=== PATIENT | male | born 1950 | race Caucasian/White ===

== ENCOUNTER → 2020-08-08 08:59 | Outpatient (BNVA) | payer MEDICARE, OTHER, SELFPAY | PROVIDERS: Visit Provider Urology | DX: N32.0 Bladder-neck obstruction (principal); N52.01 Erectile dysfunction due to arterial insufficiency; N43.3 Hydrocele, unspecified | CPT/HCPCS: 81002; 99212 ==

== ENCOUNTER → 2021-02-05 08:39 | Outpatient (BNVA) | payer MEDICARE, OTHER, SELFPAY | PROVIDERS: Visit Provider Urology | DX: N52.01 Erectile dysfunction due to arterial insufficiency (principal); N43.3 Hydrocele, unspecified; N40.1 Benign prostatic hyperplasia with lower urinary tract symptoms; R35.1 Nocturia | CPT/HCPCS: Q3014 ==

== ENCOUNTER 2021-07-17 15:03 | Outpatient (REF) | payer MEDICARE, OTHER, SELFPAY ==
[2021-07-17 17:09] LABS: Prostate Specific Antigen 6.31 ng/mL (<0.05-4.0)
== END 2021-07-17 15:04 | disposition home or self-care (01) ==
LOC: HO.LAB 15:03
PROVIDERS: Visit Provider Urology
DX: N40.1 Benign prostatic hyperplasia with lower urinary tract symptoms (principal); N13.8 Other obstructive and reflux uropathy; Z12.5 Encounter for screening for malignant neoplasm of prostate
CPT/HCPCS: 36415; 84153

== ENCOUNTER → 2021-08-06 11:09 | Outpatient (BNVA) | payer MEDICARE, OTHER, SELFPAY | PROVIDERS: Visit Provider Urology | DX: Z13.89 Encounter for screening for other disorder (principal) ==

== ENCOUNTER → 2021-08-22 11:02 | Outpatient (BNVA) | payer MEDICARE, OTHER, SELFPAY | PROVIDERS: Visit Provider Urology | DX: N52.01 Erectile dysfunction due to arterial insufficiency (principal); N40.0 Benign prostatic hyperplasia without lower urinary tract symptoms; I10 Essential (primary) hypertension; Z88.8 Allergy status to other drugs, medicaments and biological substances | CPT/HCPCS: 51798; 99212 ==

== ENCOUNTER → 2021-11-27 10:55 | Outpatient (BNVA) | payer MEDICARE, OTHER, SELFPAY | PROVIDERS: Visit Provider Urology | DX: R97.20 Elevated prostate specific antigen [PSA] (principal); C61 Malignant neoplasm of prostate; N40.0 Benign prostatic hyperplasia without lower urinary tract symptoms; N52.01 Erectile dysfunction due to arterial insufficiency; Z79.899 Other long term (current) drug therapy | CPT/HCPCS: 99212 ==

== ENCOUNTER 2021-12-31 07:34 | Outpatient (REF) | payer MEDICARE, OTHER, SELFPAY ==
[2021-12-31 07:59] VITALS: BMI 34.2
[2021-12-31 08:00] VITALS: BP 124/79; PULSE 62; RESP 16; TEMP 36.9; O2SAT 95
--- NOTE | 2021-12-31 08:28 | W.PM.OPN ---
Operative Note Operative Note Date of Service: 12/31/21 Narrative: Preoperative diagnosis: Elevated PSA Postoperative diagnosis: Elevated PSA Procedure: 1. transrectal ultrasound measurement of prostate 2. transrectal ultrasound-guided pudendal nerve block 3. transrectal ultrasound-guided prostate biopsy 12 core Surgeon: Dr. Jaiden De Jesus Anesthetic: Local Indications for procedure: Elevated PSA 6.3 Procedure: After informed consent was verified, the patient was brought into the procedure area and lay left-hand side down on the table. Patient identity confirmed. Perioperative antibiotics confirmed. Iodine 10cc with Gel was placed per rectum Ultrasound probe was placed per rectum The prostate was measured in 3 dimensions Total volume equals 50 gm There were - no cystic structures and - calcifications base right side noted and the prostate was homogeneous in nature A ultrasound-guided pudendal nerve block was performed using 10 cc of 1% lidocaine. 8 cc was placed at the base and 2 cc of the apex. A 12 core biopsy was performed with 6 cores each side. Two cores were taken at the apex, mid and base. Cores were spaced between lateral and medial. He tolerated the procedure well. Was able to ambulate to bathroom after 5 minutes. Printed instructions regarding antibiotic use and common side effects such as low-grade temperature and bleeding were given Pathology: 12 core prostate biopsy.
[2021-12-31 08:37] VITALS: BP 153/86; PULSE 77; RESP 16; O2SAT 96
== END 2021-12-31 07:35 | disposition home or self-care (01) ==
LOC: HO.MS 07:34
PROVIDERS: Visit Provider Urology
PROC: (CPT 55700; principal; 2021-12-31 08:00)
DX: C61 Malignant neoplasm of prostate (principal); R97.20 Elevated prostate specific antigen [PSA]
CPT/HCPCS: 55700; 76942; 88305; 88344

== ENCOUNTER → 2022-01-08 11:23 | Outpatient (BNVA) | payer MEDICARE, OTHER, SELFPAY | PROVIDERS: Visit Provider Urology | DX: C61 Malignant neoplasm of prostate (principal); C79.51 Secondary malignant neoplasm of bone; R39.15 Urgency of urination; N40.0 Benign prostatic hyperplasia without lower urinary tract symptoms; R35.1 Nocturia; N40.1 Benign prostatic hyperplasia with lower urinary tract symptoms | CPT/HCPCS: 99212 ==

== ENCOUNTER 2022-01-15 11:14 | Outpatient (REF) | payer MEDICARE, OTHER, SELFPAY ==
[2022-01-15 12:47] LABS: Blood Urea Nitrogen 21 mg/dL (9-16); Estimated Glomerular Filt Rate > 60
== END 2022-01-15 11:15 | disposition home or self-care (01) ==
LOC: HO.LAB 11:14
PROVIDERS: Visit Provider Urology
DX: C61 Malignant neoplasm of prostate (principal); R39.15 Urgency of urination
CPT/HCPCS: 36415; 82565; 84520

== ENCOUNTER → 2022-01-16 10:54 | Outpatient (REF) | payer MEDICARE, OTHER, SELFPAY ==
--- NOTE | ~2022-01-16 | NM_ITS ---
EXAMINATION: NM BONE SCAN OF THE WHOLE BODY CLINICAL INFORMATION: Prostate cancer malignant neoplasm of the prostate COMPARISON: No prior bone scan TECHNIQUE: Multiple gamma scintillation camera images of the whole body were performed 2.5 hours following the intravenous administration of 36 mCi Tc-99m MDP. FINDINGS: There is nonspecific increased activity in the right and left sternoclavicular joints and shoulder joints, and hind feet likely arthritic in nature. There is nonspecific activity in the right mid thoracic costovertebral region and right lumbosacral junction also likely arthritic. There is arthritic activity in the right and left first CMC. Plain film correlation could be made if the patient is symptomatic. There is physiologic activity in the kidneys and bladder with increased activity noted in the left upper collecting system. This could be secondary to the presence of a calyceal diverticulum. Bilateral knee prosthesis noted. NM/NM bone scan whole body IMPRESSION: Nonspecific findings. Findings likely arthritic in nature with no scintigraphic evidence for metastases.
== END ==
LOC: HO.NUCMED 10:54
PROVIDERS: Visit Provider Urology
DX: C61 Malignant neoplasm of prostate (principal); C79.51 Secondary malignant neoplasm of bone
CPT/HCPCS: 78306; A9503

== ENCOUNTER → 2022-01-21 09:12 | Outpatient (BNVA) | payer MEDICARE, OTHER, SELFPAY | PROVIDERS: Visit Provider Urology | DX: C61 Malignant neoplasm of prostate (principal) | CPT/HCPCS: 96402; J9217 ==

== ENCOUNTER 2022-01-22 08:33 | Outpatient (REF) | payer MEDICARE, OTHER, SELFPAY ==
--- NOTE | ~2022-01-22 | CT_ITS ---
EXAMINATION: CT ABDOMEN AND PELVIS WITHOUT AND WITH CONTRAST CLINICAL INFORMATION: Prostate cancer COMPARISON: None TECHNIQUE: Multidetector volumetric imaging was performed of the abdomen and pelvis before and after the IV administration of 85 mL of Omnipaque 300 intravenous contrast. Sagittal and coronal reformatted images were obtained on the technologist's workstation. This CT examination was performed using dose optimization techniques as appropriate, variously including the following: *Automated exposure control *Adjustment of mA and/or kV according to patient size (this includes techniques or standardized protocols for targeted exams where dose is matched to indication/reason for exam; i.e. extremities or head) *Use of iterative reconstruction technique DLP: 1733 mGy-cm FINDINGS: LUNG BASES: There are several small pulmonary nodules, largest a 4 mm peripheral or subpleural right lower lobe nodule axial image 13 series 11. There is heterogeneous abnormal soft tissue in the right posterior mediastinum near the descending thoracic aorta and distal thoracic esophagus. Appears partially fatty and partially cystic or fluid containing. It is uncertain whether this represents a fluid collection, complex soft tissue mass or is related to white diaphragmatic hiatus and radiation fat. There are pacemaker lead partially visualized in the heart. LIVER, GALLBLADDER, AND BILIARY TREE: The liver is normal in size, shape, and attenuation. No focal hepatic lesion or biliary ductal dilatation is present. The gallbladder is unremarkable with no evidence of radiopaque gallstones, gallbladder wall thickening, or obvious pericholecystic inflammatory changes. PANCREAS: Unremarkable SPLEEN: Unremarkable ADRENAL GLANDS: Unremarkable KIDNEYS AND URETERS: There is a 7.5 x 9.2 cm indeterminate low-attenuation lesion exophytic to the upper pole of the right kidney. Hounsfield units following IV contrast measure 40 which is indeterminate. It is uncertain whether this represents a complex cyst or could represent a solid lesion. There is left upper pole cortical thinning or scarring. There is mild left upper pole calyceal dilatation. There are multiple bilateral renal simple appearing cysts, largest measuring 3 cm. There is a 2 mm nonobstructing stone in the lower pole of the right kidney. BLADDER: Unremarkable GASTROINTESTINAL TRACT: The small and large bowel are unremarkable. The appendix is is not seen. The stomach is unremarkable. ABDOMINAL WALL: There are bilateral inguinal hernias containing fat, left greater than right. LYMPH NODES: Small, small bowel mesentery lymph nodes and increased stranding of the fat or lily mesentery sign. This is a nonspecific finding. VASCULAR: Unremarkable PELVIC VISCERA: The prostate gland is normal in size. No pelvic mass. No ascites. OSSEOUS STRUCTURES: There are degenerative changes of the spine. No fracture or suspicious bone lesion. Probable T10 vertebral body hemangioma. CT/CT abdomen pelvis wo/w IV con IMPRESSION: Normal size prostate gland. No pelvic mass or lymphadenopathy. Multiple bilateral renal cysts. 7.5 x 2.2 cm indeterminate lesion in the upper pole right kidney. It is uncertain whether this represents a complex cyst or solid lesion. Further evaluation with renal ultrasound. Probable tiny nonobstructing right lower pole renal stone. Left upper pole renal cortical thinning or scarring and mild upper pole calyceal dilatation. Small right lower lobe pulmonary nodules. Abnormal soft tissue in the posterior mediastinum as described above. Follow-up chest CT should be considered. Fleischner guidelines were followed.
[2022-01-22] MEDS: iohexoL 350 MG/ML 100 ML INFUS..BTL IV (09:13)
== END 2022-01-22 08:34 | disposition home or self-care (01) ==
LOC: HO.CT 08:33
PROVIDERS: Visit Provider Urology
DX: C61 Malignant neoplasm of prostate (principal)
CPT/HCPCS: 74178; Q9967

== ENCOUNTER → 2022-01-24 13:56 | Outpatient (BNVA) | payer MEDICARE, OTHER, SELFPAY | PROVIDERS: Visit Provider Urology | DX: N28.1 Cyst of kidney, acquired (principal) | CPT/HCPCS: 51798; 99212 ==

== ENCOUNTER → 2022-03-28 09:47 | Outpatient (BNVA) | payer MEDICARE, OTHER, SELFPAY | PROVIDERS: PCP Hospitalist; Visit Provider Urology | DX: C61 Malignant neoplasm of prostate (principal) | CPT/HCPCS: Q3014 ==

== ENCOUNTER 2022-04-02 07:45 | Outpatient (REF) | payer MEDICARE, OTHER, SELFPAY ==
[2022-04-02 07:53] VITALS: BMI 34.7
[2022-04-02 07:54] VITALS: BP 106/69; PULSE 97; RESP 16; TEMP 36.4; O2SAT 94
[2022-04-02 08:35] VITALS: BP 114/82; PULSE 90; RESP 16; O2SAT 96
--- NOTE | 2022-04-02 08:35 | W.PM.OPN ---
Operative Note Operative Note Date of Service: 04/02/22 Narrative: Preoperative diagnosis: Prostate cancer Postoperative diagnosis: Prostate cancer Procedure: 1. Transrectal ultrasound-guided pudendal nerve block 2. Transrectal ultrasound-guided gold seed placement Surgeon: Dr. Jaiden De Jesus Anesthetic: Local Indications for procedure: Prostate Cancer Procedure: After informed consent was verified, the patient was brought into the procedure area and lay left-hand side down on the table. Patient identity confirmed. Perioperative antibiotics confirmed. Gel was placed per rectum Ultrasound probe was placed per rectum A ultrasound-guided pudendal nerve block was performed using 10 cc of 1% lidocaine. 8 cc was placed at the base and 2 cc of the apex. 3 gold seed markers placed. 2 on the right, 1 on the left. The purpose is for triangulation. He tolerated the procedure well. Was able to ambulate to bathroom after 5 minutes. Printed instructions regarding antibiotic use and common side effects such as low-grade temperature and bleeding were given
== END 2022-04-02 07:46 | disposition home or self-care (01) ==
LOC: HO.MS 07:45
PROVIDERS: Visit Provider Urology
PROC: (CPT 55876; principal; 2022-04-02 08:00)
DX: C61 Malignant neoplasm of prostate (principal)
CPT/HCPCS: 55876; 76942; A4648

== ENCOUNTER → 2022-05-27 11:45 | Outpatient (BNVA) | payer MEDICARE, OTHER, SELFPAY | PROVIDERS: Visit Provider Urology | DX: C61 Malignant neoplasm of prostate (principal) | CPT/HCPCS: 99212 ==

== ENCOUNTER 2022-07-25 11:20 | Outpatient (REF) | payer MEDICARE, OTHER, SELFPAY ==
[2022-07-25 13:28] LABS: Prostate Specific Antigen 2.98 ng/mL (<0.05-4.0)
[2022-08-04 11:38] LABS: Testosterone, Total <1 ng/dL (250-1100)
== END 2022-07-25 11:21 | disposition home or self-care (01) ==
LOC: HO.LAB 11:20
PROVIDERS: PCP Hospitalist; Visit Provider Urology
DX: Z12.5 Encounter for screening for malignant neoplasm of prostate (principal); C61 Malignant neoplasm of prostate
CPT/HCPCS: 36415; 84153; 84403

== ENCOUNTER → 2022-08-07 11:36 | Outpatient (BNVA) | payer MEDICARE, OTHER, SELFPAY | PROVIDERS: PCP Hospitalist; Visit Provider Urology | DX: C61 Malignant neoplasm of prostate (principal); R97.21 Rising PSA following treatment for malignant neoplasm of prostate; N52.1 Erectile dysfunction due to diseases classified elsewhere; N40.1 Benign prostatic hyperplasia with lower urinary tract symptoms; R35.1 Nocturia; Z79.01 Long term (current) use of anticoagulants; Z79.899 Other long term (current) drug therapy | CPT/HCPCS: 99212 ==

== ENCOUNTER → 2022-09-12 09:34 | Outpatient (BNVA) | payer MEDICARE, OTHER, SELFPAY | PROVIDERS: PCP Hospitalist; Visit Provider Urology ==

== ENCOUNTER → 2022-09-19 10:27 | Outpatient (BNVA) | payer MEDICARE, OTHER, SELFPAY | PROVIDERS: PCP Hospitalist; Visit Provider Urology | DX: C61 Malignant neoplasm of prostate (principal) | CPT/HCPCS: 96402; J9217 ==

== ENCOUNTER 2022-10-22 15:44 | Outpatient (REF) | payer MEDICARE, OTHER, SELFPAY ==
[2022-10-22 18:17] LABS: Prostate Specific Antigen 0.57 ng/mL (<0.05-4.0)
[2022-10-31 11:58] LABS: Testosterone, Total 2 ng/dL (250-1100)
== END 2022-10-22 15:45 | disposition home or self-care (01) ==
LOC: HO.LAB 15:44
PROVIDERS: PCP Hospitalist; Visit Provider Urology
DX: C61 Malignant neoplasm of prostate (principal); Z12.5 Encounter for screening for malignant neoplasm of prostate
CPT/HCPCS: 36415; 84153; 84403

== ENCOUNTER → 2022-10-31 10:16 | Outpatient (BNVA) | payer MEDICARE, OTHER, SELFPAY | PROVIDERS: PCP Hospitalist; Visit Provider Urology | DX: C61 Malignant neoplasm of prostate (principal) | CPT/HCPCS: 99212 ==

== ENCOUNTER 2023-03-23 09:32 | Outpatient (REF) | payer MEDICARE, OTHER, SELFPAY ==
[2023-03-23 11:07] LABS: Prostate Specific Antigen 0.47 ng/mL (<0.05-4.0)
[2023-03-26 16:27] LABS: Testosterone, Total 1 ng/dL (250-1100)
== END 2023-03-23 09:33 | disposition home or self-care (01) ==
LOC: HO.LAB 09:32
PROVIDERS: PCP Hospitalist; Visit Provider Urology
DX: C61 Malignant neoplasm of prostate (principal); Z12.5 Encounter for screening for malignant neoplasm of prostate
CPT/HCPCS: 36415; 84153; 84403

== ENCOUNTER 2023-03-26 10:03 | Outpatient (AMB) | payer MEDICARE, OTHER, SELFPAY ==
--- NOTE | 2023-03-26 10:04 | A.OFFVIS_ITS ---
Intake Intake Visit Reasons: [facility]/labs(Pending) Intake Note: Patient is Present for Follow Up labs/Eligard Injection Urology Medication: Eligard(Q6M), Tadalafil, Tamsulosin, Antibiotic Allergies: Blood Thinners: Eliquis Allergies hydrochlorothiazide Allergy (Unknown, Verified 03/26/23 10:07) Unknown NSAIDS Allergy (Unknown, Uncoded 03/26/23 10:07) Unknown Medication List - Last Reconciled 03/26/23 by Jaiden De Jesus MD albuterol sulfate 90 mcg/actuation 0 mcg inhalation apixaban (Eliquis) 5 mg PO BID carvedilol 3.125 mg PO BID ezetimibe 10 mg PO DAILY fluorouracil 5% appl topical BID furosemide 20 mg PO BID leuprolide acetate (6 month) (Eligard) 45 mg subcut [id number] omeprazole 20 mg PO DAILY penciclovir 1% appl topical rosuvastatin 40 mg PO DAILY tadalafil 5 mg PO DAILY 90 days tamsulosin 0.4 mg PO BEDTIME 90 days triamcinolone acetonide 0.1% 1 appl topical BID-TID umeclidinium-vilanterol 62.5-25 mcg/actuation 1 ea inhalation DAILY valsartan 160 mg PO DAILY HPI HPI Comments History of Present Illness Details Phani MANRIQUE is a very pleasant male. He is a patient of Dr Boyd. He is seen for the following urologic conditions. - prostate cancer high-grade - lower urinary tract symptoms - erectile dysfunction Recent trip to [place] for [id number] is wedding PSA stable Low T GnRH given today Recently restarted abiraterone Did discuss fatigue - might need to reduce dosage Oncologist - Dr Barragan 04/09 PSA 0.5 T2 GnRH PSA 08/07 2.98 T <1, 11/07 0.6 Prostate cancer Grade Group 5 - Last GnRH 08/07 11/07 Off abiraterone secondary to fluid related side effects Initial therapy GnRH with external beam radiation and maximum androgen blockade with GnRH and anti androgen - Radiation complete 05/08 Accelerating PSA - 11/06 8.1 F 22%, 02/[address] De Jesus for accelerating PSA 01/06 Histologic type: Adenocarcinoma, acinar type ? [place] score: 4+5=9 (right base lateral 70%, right base medial 100% and right mid lateral 90%) 4+4=8 (left base media 5% l, right mid medial 5% ) Tumor quantitation: ? Number cores positive: 5/12 ? % of tissue involved: Approximately 20% of all tissue examined 300/1200 Periprostatic fat inv.: Present Seminal vesicle inv.: Not identified Perineural inv.: Present LVI: Indeterminate GnRH injection 02/06, 08/07 Imaging - 02/06 bone scan negative, CT scan no ev idence of charo disease - large complex cyst on Left kidney Erectile dysfunction: Taking medication daily Tadalafil 5 mg, will add Flomax for urination urgency He presents today for for continued evaluation and management of erectile dysfunction. Symptoms have been present for/since Ongoing. Current treatment includes tadalafil 5 mg daily Prior therapies include oral medications 10 mg daily tadalafil with headache At this time he experiences erections are partial and adequate for vaginal penetration, that undergo rapid detumesence after penetration, RAZA 8-11 Moderate ED. Nocturnal erections do occur. Currently they are in a stable relationship. Overall he is satisfied with the current management. Therapeutic plan includes - continue surveillance in [facility] for 24 month total [facility] Medical History Asthma Nocturia BPH (benign prostatic hyperplasia) HTN (hypertension) Hydrocele Erectile dysfunction due to arterial insufficiency Bladder outlet obstruction Incomplete emptying of bladder Weak urinary stream Surgical History History of total right knee replacement History of left knee replacement Family History Father No problems noted. Mother No problems noted. Review of Systems Const Denies chills and Denies fever(s) Card Reports no additional complaints and Denies syncope Resp Denies cough GI Denies abdominal pain and Denies heartburn Reports as per HPI and Denies change in libido Neuro Denies syncope Psych Denies change in libido Endo Denies change in libido Physical Exam Const General: cooperative, healthy appearing, comfortable and no acute distress Orientation/consciousness: patient oriented x3 HEENT Face and sinus: Yes normal facial exam Mouth: moist mucous membranes Neck Neck: Yes normal visual inspection, Yes full ROM and Yes trachea midline Chest Chest palpation & inspection: normal inspection of the chest Resp Effort & Inspection: normal respiratory effort, able to speak in complete sentences and no respiratory distress GI Inspection: Yes normal to inspection Back/Spine/Pelvis Cervical Spine: normal cervical lordosis Thoracic/Lumbar Spine: thoracic and lumbar spine normal to inspection Skin General skin exam: no rashes or lesions noted Neuro General: patient oriented x3, gait normal, tone normal and moves all extremities Extrem General: Yes normal to inspection and Yes capillary refill normal Office Meds Eligard (6 month) 45 mg (6 month) subcutaneous syringe Performing Provider: Jaiden De Jesus MD [facility] Administered by: Gaby Santoyo RN on 03/26/23 10:13 Dose Route Admin Location Dispensed Lot Number Expiration Date [facility] Table And [employer]k Finisher 45 mg subcut right arm 45 mg [id number] 05/18/24 95309-402-82 [employer] Assessment & Plan Assessment & Plan (1) Prostate cancer: Comment: 01/06 high-grade clinically localized Code(s): C61 - Malignant neoplasm of prostate Plan Three month follow-up labs tele Orders: Orders AMB Leuprolide Injection - Practice Supplied Today C61 - Malignant neoplasm of prostate Testosterone, Total 3 Months C61 - Malignant neoplasm of prostate Prostate Specific Antigen 3 Months C61 - Malignant neoplasm of prostate Patient Instructions: Imaging studies, laboratory and physical exam results were discussed and reviewed in detail. No major barriers to patient understanding were identified. An opportunity to ask questions regarding the treatment plan was provided. All questions were answered. The patient expressed understanding and agreement with the above treatment plan. The patient is aware they should contact our office by phone for worsening of their current condition or the appearance of new urologic symptoms. Compliance is encouraged with any medications and followup testing that is ordered. It is a privilege to participate in the urologic care of your patient. If you have any questions or concerns regarding treatment for the above conditions, or other urologic issues, please do not hesitate to contact me. The office telephone contact is [phone]. This note is constructed using voice recognition software. While every effort has been made to ensure accuracy grain shipper errors may have been included. Yours sincerely, Dr Jaiden De Jesus MD, [facility] - Urology Providers of Expert, Compassionate Care for the Genitourinary System Coding Level of Care Code Est Pt Level 3 (30429) Diagnoses Prostate cancer C61
== END 2023-03-26 11:02 | disposition home or self-care (01) ==
PROVIDERS: PCP Hospitalist; Visit Provider Urology
DX: C61 Malignant neoplasm of prostate (principal)
CPT/HCPCS: 99213

== ENCOUNTER → 2023-03-26 10:03 | Outpatient (BNVA) | payer MEDICARE, OTHER, SELFPAY | PROVIDERS: PCP Hospitalist; Visit Provider Urology | DX: C61 Malignant neoplasm of prostate (principal) | CPT/HCPCS: 96402; 99212; J9217 ==

== ENCOUNTER 2023-07-20 11:15 | Outpatient (REF) | payer MEDICARE, OTHER, SELFPAY ==
[2023-07-20 13:11] LABS: Prostate Specific Antigen 0.19 ng/mL (<0.05-4.0)
[2023-07-28 01:28] LABS: Testosterone, Total <1 ng/dL (250-1100)
== END 2023-07-20 11:16 | disposition home or self-care (01) ==
LOC: HO.LAB 11:15
PROVIDERS: PCP Hospitalist; Visit Provider Urology
DX: Z12.5 Encounter for screening for malignant neoplasm of prostate (principal); C61 Malignant neoplasm of prostate
CPT/HCPCS: 36415; 84153; 84403

== ENCOUNTER 2023-07-29 11:17 | Outpatient (AMB) | payer MEDICARE, OTHER, SELFPAY ==
--- NOTE | 2023-07-29 11:20 | A.OFFVIS_ITS ---
Intake Intake Visit Reasons: 3m/PSA/testo(pending) Intake Note: Patient presents today for a follow-up ON PSA Meds- Tadalafil, Tamsulosin, Eligard Allergies to Antibiotic- No Known Allergies Blood Thinner- Eliquis Post Void Residual: 0ml Consulting Manager Required: No Accompanied by: Self / Same As Patient Allergies hydrochlorothiazide Allergy (Unknown, Verified 07/29/23 11:28) Unknown NSAIDS Allergy (Unknown, Uncoded 07/29/23 11:28) Unknown HPI HPI Comments History of Present Illness Details Phani MANRIQUE is a very pleasant male. He is a patient of Dr Boyd. He is seen for the following urologic conditions. - prostate cancer high-grade - lower urinary tract symptoms - erectile dysfunction Recent trip to [place] for [id number] is wedding PSA stable Low T Continue surveillance Oncologist - Dr Barragan 08/08 PSA 0.2 T <1 - combination therapy abiraterone 04/09 PSA 0.5 T2 GnRH PSA 08/07 2.98 T <1, 11/07 0.6 Prostate cancer Grade Group 5 - Last GnRH 04/09 11/07 Off abiraterone secondary to fluid related side effects Initial therapy GnRH with external beam radiation and maximum androgen blockade with GnRH and anti androgen - Radiation complete 05/08 Accelerating PSA - 11/06 8.1 F 22%, 02/[address] De Jesus for accelerating PSA 01/06 Histologic type: Adenocarcinoma, acinar type ? [place] score: 4+5=9 (right base lateral 70%, right base medial 100% and right mid lateral 90%) 4+4=8 (left base media 5% l, right mid medial 5% ) Tumor quantitation: ? Number cores positive: 09/26 ? % of tissue involved: Approximately 20% of all tissue examined 300/1200 Periprostatic fat inv.: Present Seminal vesicle inv.: Not identified Perineural inv.: Present LVI: Indeterminate GnRH injection 02/06, 08/07 Imaging - 02/06 bone scan negative, CT scan no ev idence of charo disease - large complex cyst on Left kidney Erectile dysfunction: Taking medication daily Tadalafil 5 mg, will add Flomax for urination urgency He presents today for for continued evaluation and management of erectile dysfunction. Symptoms have been present for/since Ongoing. Current treatment includes tadalafil 5 mg daily Prior therapies include oral medications 10 mg daily tadalafil with headache At this time he experiences erections are partial and adequate for vaginal penetration, that undergo rapid detumesence after penetration, RAZA 8-11 Moderate ED. Nocturnal erections do occur. Currently they are in a stable relationship. Overall he is satisfied with the current management. Therapeutic plan includes - continue surveillance in [facility] for 24 month total [facility] Medical History Asthma Nocturia BPH (benign prostatic hyperplasia) HTN (hypertension) Hydrocele Erectile dysfunction due to arterial insufficiency Bladder outlet obstruction Incomplete emptying of bladder Weak urinary stream Surgical History History of total right knee replacement History of left knee replacement Family History Father No problems noted. Mother No problems noted. Review of Systems Const Denies chills and Denies fever(s) Card Reports no additional complaints and Denies syncope Resp Denies cough GI Denies abdominal pain and Denies heartburn Reports as per HPI and Denies change in libido Neuro Denies syncope Psych Denies change in libido Endo Denies change in libido Physical Exam Const General: cooperative, healthy appearing, comfortable and no acute distress Orientation/consciousness: patient oriented x3 HEENT Face and sinus: Yes normal facial exam Mouth: moist mucous membranes Neck Neck: Yes normal visual inspection, Yes full ROM and Yes trachea midline Chest Chest palpation & inspection: normal inspection of the chest Resp Effort & Inspection: normal respiratory effort, able to speak in complete sentences and no respiratory distress GI Inspection: Yes normal to inspection Back/Spine/Pelvis Cervical Spine: normal cervical lordosis Thoracic/Lumbar Spine: thoracic and lumbar spine normal to inspection Skin General skin exam: no rashes or lesions noted Neuro General: patient oriented x3, gait normal, tone normal and moves all extremities Extrem General: Yes normal to inspection and Yes capillary refill normal Office Procedures Post Void Residual Post Residual Void Post Void Residual (PVR): 0 42291-Ughk Void Residual by ultrasound Assessment & Plan Assessment & Plan (1) Adverse effect of antiandrogen: Code(s): T38.6X5A - Adverse effect of antigonadotrophins, antiestrogens, antiandrogens, not elsewhere classified, initial encounter (2) Prostate cancer metastatic to bone: Code(s): C61 - Malignant neoplasm of prostate; C79.51 - Secondary malignant neoplasm of bone Plan Three-month follow-up labs Orders: Orders AMB Post Void Residual by ultrasound 07/29/23 R33.9 - Retention of urine, unspecified Prostate Specific Antigen 07/31/23 C61 - Malignant neoplasm of prostate Testosterone, Free/Total 07/31/23 C61 - Malignant neoplasm of prostate Patient Instructions: Imaging studies, laboratory and physical exam results were discussed and reviewed in detail. No major barriers to patient understanding were identified. An opportunity to ask questions regarding the treatment plan was provided. All questions were answered. The patient expressed understanding and agreement with the above treatment plan. The patient is aware they should contact our office by phone for worsening of their current condition or the appearance of new urologic symptoms. Compliance is encouraged with any medications and followup testing that is ordered. It is a privilege to participate in the urologic care of your patient. If you have any questions or concerns regarding treatment for the above conditions, or other urologic issues, please do not hesitate to contact me. The office telephone contact is [phone]. This note is constructed using voice recognition software. While every effort has been made to ensure accuracy school principal errors may have been included. Yours sincerely, Dr Jaiden De Jesus MD, [facility] - Urology Providers of Expert, Compassionate Care for the Genitourinary System Coding Level of Care Code Est Pt Level 3 (47095) Diagnoses Adverse effect of antiandrogen T38.6X5A Prostate cancer metastatic to bone C61; C79.51 CPT Codes Post Residual Void - PVR CPT Code: 11775-Utet Void Residual by ultrasound ([id number])
== END 2023-07-29 11:47 | disposition home or self-care (01) ==
PROVIDERS: PCP Hospitalist; Visit Provider Urology
DX: C61 Malignant neoplasm of prostate (principal); C79.51 Secondary malignant neoplasm of bone
CPT/HCPCS: 99213

== ENCOUNTER → 2023-07-29 11:17 | Outpatient (BNVA) | payer MEDICARE, OTHER, SELFPAY | PROVIDERS: PCP Hospitalist; Visit Provider Urology | DX: C61 Malignant neoplasm of prostate (principal); C79.51 Secondary malignant neoplasm of bone; T38.6X5A Adverse effect of antigonadotrophins, antiestrogens, antiandrogens, not elsewhere classified, initial encounter; N52.9 Male erectile dysfunction, unspecified; R39.15 Urgency of urination; R33.9 Retention of urine, unspecified; Z79.899 Other long term (current) drug therapy | CPT/HCPCS: 51798; 99212 ==

== ENCOUNTER 2023-10-15 10:40 | Outpatient (REF) | payer MEDICARE, OTHER, SELFPAY ==
[2023-10-15 11:48] LABS: Prostate Specific Antigen 0.16 ng/mL (<0.05-4.0)
[2023-10-23 00:19] LABS: Testosterone, Total <1 ng/dL (250-1100)
== END 2023-10-15 10:41 | disposition home or self-care (01) ==
LOC: HO.LAB 10:40
PROVIDERS: Visit Provider Urology
DX: C61 Malignant neoplasm of prostate (principal); Z12.5 Encounter for screening for malignant neoplasm of prostate
CPT/HCPCS: 36415; 84153; 84402; 84403

== ENCOUNTER 2023-10-28 09:43 | Outpatient (AMB) | payer MEDICARE, OTHER, SELFPAY ==
--- NOTE | 2023-10-28 10:09 | A.OFFVIS_ITS ---
Intake Visit Reasons: GnRH/PSA/Testo(set) Intake Note: Patient is Present for Follow Up Eligard Injection/Labs Urology Medication:Furosemide, Tadalafil, Tamsulosin Antibiotic Allergies: None Blood Thinners: Eliquis Allergies hydrochlorothiazide Allergy (Unknown, Verified 10/28/23 10:10) Unknown NSAIDS Allergy (Unknown, Uncoded 10/28/23 10:10) Unknown Medication List - Last Reconciled 10/28/23 by Jaiden De Jesus MD albuterol sulfate 90 mcg/actuation 0 mcg inhalation apixaban (Eliquis) 5 mg PO BID carvedilol 3.125 mg PO BID ezetimibe 10 mg PO DAILY fluorouracil 5% appl topical BID furosemide 20 mg PO BID leuprolide acetate (6 month) (Eligard) 45 mg subcut [id number] omeprazole 20 mg PO DAILY penciclovir 1% appl topical rosuvastatin 40 mg PO DAILY tadalafil 5 mg PO DAILY 90 days tamsulosin 0.4 mg PO BEDTIME 90 days triamcinolone acetonide 0.1% 1 appl topical BID-TID umeclidinium-vilanterol 62.5-25 mcg/actuation 1 ea inhalation DAILY valsartan 160 mg PO DAILY HPI Comments Details: Phani MANRIQUE is a very pleasant male. He is a patient of Dr Boyd. He is seen for the following urologic conditions. - prostate cancer high-grade - lower urinary tract symptoms - erectile dysfunction Does have hot flashes with slight irritability Lab work shows biochemically controlled prostate cancer Oncologist has scheduled follow-up PMSA scan GnRH provided today Typically would remain on maximum androgen blockade for approximately 3 years before withdrawal Oncologist - Dr Barragan 11/08 0.16 T <1 08/08 PSA 0.2 T <1 - combination therapy abiraterone - found small lesion spine on PMSA scan - spot radiation performed in [place] 04/09 PSA 0.5 T2 GnRH PSA 08/07 2.98 T <1, 11/07 0.6 Prostate cancer Grade Group 5 - Last GnRH 04/09 11/07 Off abiraterone secondary to fluid related side effects Initial therapy GnRH with external beam radiation and maximum androgen blockade with GnRH and anti androgen - Radiation complete 05/08 Accelerating PSA - 11/06 8.1 F 22%, 02/[address] De Jesus for accelerating PSA 01/06 Histologic type: Adenocarcinoma, acinar type ? [place] score: 4+5=9 (right base lateral 70%, right base medial 100% and right mid lateral 90%) 4+4=8 (left base media 5% l, right mid medial 5% ) Tumor quantitation: ? Number cores positive: 09/26 ? % of tissue involved: Approximately 20% of all tissue examined 300/1200 Periprostatic fat inv.: Present Seminal vesicle inv.: Not identified Perineural inv.: Present LVI: Indeterminate GnRH injection 02/06, 08/07, 04/09 Imaging - 02/06 bone scan negative, CT scan no evidence of charo disease - large complex cyst on Left kidney Erectile dysfunction: Taking medication daily Tadalafil 5 mg, will add Flomax for urination urgency He presents today for for continued evaluation and management of erectile dysfunction. Symptoms have been present for/since Ongoing. Current treatment includes tadalafil 5 mg daily Prior therapies include oral medications 10 mg daily tadalafil with headache At this time he experiences erections are partial and adequate for vaginal penetration, that undergo rapid detumesence after penetration, RAZA 8-11 Moderate ED. Nocturnal erections do occur. Currently they are in a stable relationship. Overall he is satisfied with the current management. Therapeutic plan includes - continue surveillance in [facility] for 24 month total [facility] Medical History Asthma Nocturia BPH (benign prostatic hyperplasia) HTN (hypertension) Hydrocele Erectile dysfunction due to arterial insufficiency Bladder outlet obstruction Incomplete emptying of bladder Weak urinary stream Surgical History History of total right knee replacement History of left knee replacement Family History Father No problems noted. Mother No problems noted. Review of Systems Const Denies chills and Denies fever(s) Card Reports no additional complaints and Denies syncope Resp Denies cough GI Denies abdominal pain and Denies heartburn Reports as per HPI and Denies change in libido Neuro Denies syncope Psych Denies change in libido Endo Denies change in libido Physical Exam Const General: cooperative, healthy appearing, comfortable and no acute distress Orientation/consciousness: patient oriented x3 HEENT Face and sinus: Yes normal facial exam Mouth: moist mucous membranes Neck Neck: Yes normal visual inspection, Yes full ROM and Yes trachea midline Chest Chest palpation & inspection: normal inspection of the chest Resp Effort & Inspection: normal respiratory effort, able to speak in complete sentences and no respiratory distress GI Inspection: Yes normal to inspection Back/Spine/Pelvis Cervical Spine: normal cervical lordosis Thoracic/Lumbar Spine: thoracic and lumbar spine normal to inspection Skin General skin exam: no rashes or lesions noted Neuro General: patient oriented x3, gait normal, tone normal and moves all extremities Extrem General: Yes normal to inspection and Yes capillary refill normal Office Meds Eligard (6 month) 45 mg (6 month) subcutaneous syringe Performing Provider: Jaiden De Jesus MD Performing Location: [facility] Administered by: Terry De Jesus LPN on 10/28/23 10:24 Dose Route Admin Location Dispensed Lot Number Expiration Date [facility] [employer]ter 45 mg subcut left arm 45 mg [id number] 01/16/25 47624-962-95 [employer]. Assessment & Plan Assessment & Plan (1) Prostate cancer metastatic to bone: Code(s): C61 - Malignant neoplasm of prostate; C79.51 - Secondary malignant neoplasm of bone Category: Medical (2) Prostate cancer: Comment: 01/06 high-grade clinically localized Code(s): C61 - Malignant neoplasm of prostate Category: Medical Plan GnRH today 3m f/u labs Orders: Orders AMB Leuprolide Injection - Practice Supplied 10/28/23 C61 - Malignant neoplasm of prostate Prostate Specific Antigen 3 Months C61 - Malignant neoplasm of prostate, C79.51 - Secondary malignant neoplasm of bone Testosterone, Total 3 Months C61 - Malignant neoplasm of prostate, C79.51 - Secondary malignant neoplasm of bone Patient Instructions: Imaging studies, laboratory and physical exam results were discussed and reviewed in detail. No major barriers to patient understanding were identified. An opportunity to ask questions regarding the treatment plan was provided. All questions were answered. The patient expressed understanding and agreement with the above treatment plan. The patient is aware they should contact our office by phone for worsening of their current condition or the appearance of new urologic symptoms. Compliance is encouraged with any medications and followup testing that is ordered. It is a privilege to participate in the urologic care of your patient. If you have any questions or concerns regarding treatment for the above conditions, or other urologic issues, please do not hesitate to contact me. The office telephone contact is [phone]. This note is constructed using voice recognition software. While every effort has been made to ensure accuracy length control tester errors may have been included. Yours sincerely, Dr Jaiden De Jesus MD, BAL[facility] - Urology Providers of Expert, Compassionate Care for the Genitourinary System Coding Level of Care Code Est Pt Level 3 (14282) Diagnoses Prostate cancer metastatic to bone C61; C79.51 Prostate cancer C61
== END 2023-10-28 10:43 | disposition home or self-care (01) ==
PROVIDERS: PCP Hospitalist; Visit Provider Urology
DX: C61 Malignant neoplasm of prostate (principal); C79.51 Secondary malignant neoplasm of bone
CPT/HCPCS: 99213

== ENCOUNTER → 2023-10-28 09:43 | Outpatient (BNVA) | payer MEDICARE, OTHER, SELFPAY | PROVIDERS: PCP Hospitalist; Visit Provider Urology | DX: C61 Malignant neoplasm of prostate (principal); C79.51 Secondary malignant neoplasm of bone | CPT/HCPCS: 96402; 99212; J9217 ==

== ENCOUNTER 2024-01-19 14:25 | Outpatient (REF) | payer MEDICARE, OTHER, SELFPAY ==
[2024-01-19 17:40] LABS: Prostate Specific Antigen < 0.10 ng/mL (<0.05-4.0)
[2024-01-25 13:54] LABS: Testosterone, Total <1 ng/dL (250-1100)
== END 2024-01-19 14:26 | disposition home or self-care (01) ==
LOC: HO.LAB 14:25
PROVIDERS: PCP Hospitalist; Visit Provider Urology
DX: C61 Malignant neoplasm of prostate (principal); C79.51 Secondary malignant neoplasm of bone; Z12.5 Encounter for screening for malignant neoplasm of prostate
CPT/HCPCS: 36415; 84153; 84403

== ENCOUNTER 2024-01-21 10:06 | Outpatient (AMB) | payer MEDICARE, OTHER, SELFPAY ==
--- NOTE | 2024-01-21 10:27 | MHC.OFFVIS ---
Intake Visit Reasons: 3M Follow Up-PSA/Testo(labs?) Intake Note: Patient is Present for Follow Up LABS Urology Medication: Tamsulosin, Tadalafil, Eligard (Q6M),Abiraterone, Prednisone Antibiotic Allergies: None Blood Thinners: Eliquis PSA Completed and Testosterone is currently Pending Once results are posted will have Provider review Neurosurgery Spine Physician Required: No Accompanied by: Self / Same As Patient Allergies hydrochlorothiazide Allergy (Unknown, Verified 01/21/24 10:35) Unknown NSAIDS Allergy (Unknown, Uncoded 01/21/24 10:35) Unknown HPI Comments Details: Phani MANRIQUE is a very pleasant male. He is a patient of Dr Boyd. He is seen for the following urologic conditions. - prostate cancer high-grade - lower urinary tract symptoms - erectile dysfunction Lab work shows biochemically controlled prostate cancer Typically would remain on maximum androgen blockade for approximately 3 years before withdrawal Will discuss with Dr. Lazcano and [facility] about remaining on GnRH Has upcoming PSMA and MRI Oncologist - Dr Barragan 02/08 <0.1, T <1 11/08 0.16 T <1 GnRH - PMSA f/u with oncology 08/08 PSA 0.2 T <1 - combination therapy abiraterone - found small lesion spine on PMSA scan - spot radiation performed in [place] 04/09 PSA 0.5 T2 GnRH PSA 08/07 2.98 T <1, 11/07 0.6 Prostate cancer Grade Group 5 - EXBRT completed 05/08 - Last GnRH 11/08 11/07 Off abiraterone secondary to fluid related side effects Initial therapy GnRH with external beam radiation and maximum androgen blockade with GnRH and anti androgen - Radiation complete 05/08 Accelerating PSA - 11/06 8.1 F 22%, 02/[address] De Jesus for accelerating PSA 01/06 Histologic type: Adenocarcinoma, acinar type ? [place] score: 4+5=9 (right base lateral 70%, right base medial 100% and right mid lateral 90%) 4+4=8 (left base media 5% l, right mid medial 5% ) Tumor quantitation: ? Number cores positive: 09/26 ? % of tissue involved: Approximately 20% of all tissue examined 300/1200 Periprostatic fat inv.: Present Seminal vesicle inv.: Not identified Perineural inv.: Present LVI: Indeterminate GnRH injection 02/06, 08/07, 04/09 Imaging - 02/06 bone scan negative, CT scan no evidence of charo disease - large complex cyst on Left kidney Erectile dysfunction: Taking medication daily Tadalafil 5 mg, will add Flomax for urination urgency He presents today for for continued evaluation and management of erectile dysfunction. Symptoms have been present for/since Ongoing. Current treatment includes tadalafil 5 mg daily Prior therapies include oral medications 10 mg daily tadalafil with headache At this time he experiences erections are partial and adequate for vaginal penetration, that undergo rapid detumesence after penetration, RAZA 8-11 Moderate ED. Nocturnal erections do occur. Currently they are in a stable relationship. Overall he is satisfied with the current management. Therapeutic plan includes - continue surveillance in [facility] for 24 month total [facility] Medical History Asthma Nocturia BPH (benign prostatic hyperplasia) HTN (hypertension) Hydrocele Erectile dysfunction due to arterial insufficiency Bladder outlet obstruction Incomplete emptying of bladder Weak urinary stream Surgical History History of total right knee replacement History of left knee replacement Family History Father No problems noted. Mother No problems noted. Review of Systems Const Denies chills and Denies fever(s) Card Reports no additional complaints and Denies syncope Resp Denies cough GI Denies abdominal pain and Denies heartburn Reports as per HPI and Denies change in libido Neuro Denies syncope Psych Denies change in libido Endo Denies change in libido Physical Exam Const General: cooperative, healthy appearing, comfortable and no acute distress Orientation/consciousness: patient oriented x3 HEENT Face and sinus: Yes normal facial exam Mouth: moist mucous membranes Neck Neck: Yes normal visual inspection, Yes full ROM and Yes trachea midline Chest Chest palpation & inspection: normal inspection of the chest Resp Effort & Inspection: normal respiratory effort, able to speak in complete sentences and no respiratory distress GI Inspection: Yes normal to inspection Back/Spine/Pelvis Cervical Spine: normal cervical lordosis Thoracic/Lumbar Spine: thoracic and lumbar spine normal to inspection Skin General skin exam: no rashes or lesions noted Neuro General: patient oriented x3, gait normal, tone normal and moves all extremities Extrem General: Yes normal to inspection and Yes capillary refill normal Assessment & Plan Assessment & Plan (1) Prostate cancer metastatic to bone: Code(s): C61 - Malignant neoplasm of prostate; C79.51 - Secondary malignant neoplasm of bone Category: Medical Plan Three-month follow-up labs Orders: Orders Prostate Specific Antigen 3 Months C61 - Malignant neoplasm of prostate, C79.51 - Secondary malignant neoplasm of bone Testosterone, Total 3 Months C61 - Malignant neoplasm of prostate, C79.51 - Secondary malignant neoplasm of bone Patient Instructions: Imaging studies, laboratory and physical exam results were discussed and reviewed in detail. No major barriers to patient understanding were identified. An opportunity to ask questions regarding the treatment plan was provided. All questions were answered. The patient expressed understanding and agreement with the above treatment plan. The patient is aware they should contact our office by phone for worsening of their current condition or the appearance of new urologic symptoms. Compliance is encouraged with any medications and followup testing that is ordered. It is a privilege to participate in the urologic care of your patient. If you have any questions or concerns regarding treatment for the above conditions, or other urologic issues, please do not hesitate to contact me. The office telephone contact is [phone]. This note is constructed using voice recognition software. While every effort has been made to ensure accuracy market development specialist errors may have been included. Yours sincerely, Dr Jaiden De Jesus MD, BAL[facility] - Urology Providers of Expert, Compassionate Care for the Genitourinary System Coding Level of Care Code Est Pt Level 3 (23758) Complex EM visit Add On G2211 Diagnoses Prostate cancer metastatic to bone C61; C79.51
== END 2024-01-21 11:20 | disposition home or self-care (01) ==
PROVIDERS: PCP Hospitalist; Visit Provider Urology
DX: C61 Malignant neoplasm of prostate (principal); C79.51 Secondary malignant neoplasm of bone
CPT/HCPCS: 99213

== ENCOUNTER → 2024-01-21 10:06 | Outpatient (BNVA) | payer MEDICARE, OTHER, SELFPAY | PROVIDERS: PCP Hospitalist; Visit Provider Urology ==

== ENCOUNTER 2024-04-12 11:02 | Outpatient (REF) | payer MEDICARE, OTHER, SELFPAY ==
[2024-04-12 13:24] LABS: Prostate Specific Antigen < 0.10 ng/mL (<0.05-4.0)
[2024-04-19 11:48] LABS: Testosterone, Total <1 ng/dL (250-1100)
== END 2024-04-12 11:03 | disposition home or self-care (01) ==
LOC: HO.LAB 11:02
PROVIDERS: PCP Hospitalist; Visit Provider Urology
DX: C61 Malignant neoplasm of prostate (principal); C79.51 Secondary malignant neoplasm of bone; Z12.5 Encounter for screening for malignant neoplasm of prostate
CPT/HCPCS: 36415; 84153; 84403

== ENCOUNTER 2024-04-19 09:20 | Outpatient (AMB) | payer OTHER, SELFPAY ==
--- NOTE | 2024-04-19 09:21 | MHC.OFFVIS ---
Intake Visit Reasons: PSA/Testo follow up(Testo pending) Intake Note: Patient is present for PSA/TESTO Urology Medication:TADALAFIL Antibiotic Allergy:NONE Blood Thinner:ELIQUIS Postal Inspector Required: No Allergies hydrochlorothiazide Allergy (Unknown, Verified 04/19/24 09:23) Unknown NSAIDS Allergy (Unknown, Uncoded 04/19/24 09:23) Unknown HPI Comments Details: Phani MANRIQUE is a very pleasant male. He is a patient of Dr Boyd. He is seen for the following urologic conditions. - prostate cancer high-grade - lower urinary tract symptoms - erectile dysfunction Continued biochemically controlled prostate cancer [facility] has recommended no more GnRH injections Coming off abiraterone and prednisone with Dr. Barragan He will follow with him for PSA every 4 months See me in six-month Oncologist - Dr Barragan 05/10 <0.1 02/08 <0.1, T <1 11/08 0.16 T <1 GnRH - PMSA f/u with oncology 08/08 PSA 0.2 T <1 - combination therapy abiraterone - found small lesion spine on PMSA scan - spot radiation performed in [place] 04/09 PSA 0.5 T2 GnRH PSA 08/07 2.98 T <1, 11/07 0.6 Prostate cancer Grade Group 5 - EXBRT completed 05/08 - Last GnRH 11/08 11/07 Off abiraterone secondary to fluid related side effects Initial therapy GnRH with external beam radiation and maximum androgen blockade with GnRH and anti androgen - Radiation complete 05/08 Accelerating PSA - 11/06 8.1 F 22%, 02/[address] De Jesus for accelerating PSA 01/06 Histologic type: Adenocarcinoma, acinar type ? Edna score: 4+5=9 (right base lateral 70%, right base medial 100% and right mid lateral 90%) 4+4=8 (left base media 5% l, right mid medial 5% ) Tumor quantitation: ? Number cores positive: 09/26 ? % of tissue involved: Approximately 20% of all tissue examined 300/1200 Periprostatic fat inv.: Present Seminal vesicle inv.: Not identified Perineural inv.: Present LVI: Indeterminate GnRH injection 02/06, 08/07, 04/09 Imaging - 02/06 bone scan negative, CT scan no evidence of charo disease - large complex cyst on Left kidney Erectile dysfunction: Taking medication daily Tadalafil 5 mg, will add Flomax for urination urgency He presents today for for continued evaluation and management of erectile dysfunction. Symptoms have been present for/since Ongoing. Current treatment includes tadalafil 5 mg daily Prior therapies include oral medications 10 mg daily tadalafil with headache At this time he experiences erections are partial and adequate for vaginal penetration, that undergo rapid detumesence after penetration, RAZA 8-11 Moderate ED. Nocturnal erections do occur. Currently they are in a stable relationship. Overall he is satisfied with the current management. Therapeutic plan includes - continue surveillance in [facility] for 24 month total [facility] Medical History Asthma Nocturia BPH (benign prostatic hyperplasia) HTN (hypertension) Hydrocele Erectile dysfunction due to arterial insufficiency Bladder outlet obstruction Incomplete emptying of bladder Weak urinary stream Surgical History History of total right knee replacement History of left knee replacement Family History Father No problems noted. Mother No problems noted. Review of Systems Const Denies chills and Denies fever(s) Card Reports no additional complaints and Denies syncope Resp Denies cough GI Denies abdominal pain and Denies heartburn Reports as per HPI and Denies change in libido Neuro Denies syncope Psych Denies change in libido Endo Denies change in libido Physical Exam Const General: cooperative, healthy appearing, comfortable and no acute distress Orientation/consciousness: patient oriented x3 HEENT Face and sinus: Yes normal facial exam Mouth: moist mucous membranes Neck Neck: Yes normal visual inspection, Yes full ROM and Yes trachea midline Chest Chest palpation & inspection: normal inspection of the chest Resp Effort & Inspection: normal respiratory effort, able to speak in complete sentences and no respiratory distress GI Inspection: Yes normal to inspection Back/Spine/Pelvis Cervical Spine: normal cervical lordosis Thoracic/Lumbar Spine: thoracic and lumbar spine normal to inspection Skin General skin exam: no rashes or lesions noted Neuro General: patient oriented x3, gait normal, tone normal and moves all extremities Extrem General: Yes normal to inspection and Yes capillary refill normal Results AMB Urinalysis, Automated UA Leukoctes 0 Jing/uL Last Edit by SAMEER Fu on 04/19/24 09:49 UA Nitrite Negative Last Edit by SAMEER Fu on 04/19/24 09:49 UA Urobilinogen 0.2 mg/dL Last Edit by SAMEER Fu on 04/19/24 09:49 UA Protein 30 mg/dL Last Edit by SAMEER Fu on 04/19/24 09:49 UA pH 6.0 Last Edit by Darius Wesley [facility] on 04/19/24 09:49 UA Blood 0 Pierce/uL Last Edit by Darius Wesley [facility] on 04/19/24 09:49 UA Specific [place] 1.020 Last Edit by SAMEER Fu on 04/19/24 09:49 UA Ketone Positive Last Edit by SAMEER Fu on 04/19/24 09:49 UA Bilirubin 0 mg/dL Last Edit by SAMEER Fu on 04/19/24 09:49 UA Glucose 1000 mg/dL Last Edit [facility] on 04/19/24 09:49 Assessment & Plan Assessment & Plan (1) Erectile dysfunction due to arterial insufficiency: Code(s): N52.01 - Erectile dysfunction due to arterial insufficiency Category: Medical (2) Prostate cancer: Comment: 01/06 high-grade clinically localized Code(s): C61 - Malignant neoplasm of prostate Category: Medical Plan Six-month follow-up office Orders: Orders AMB Urinalysis Automated Today Z13.9 - Encounter for screening, unspecified Medications: Discontinued tamsulosin Discontinued Reason: Patient Completed Course 0.4 mg PO BEDTIME 90 days 90 caps 1RF N40.0 - Benign prostatic hyperplasia without lower urinary tract symptoms, N40.1 - Benign prostatic hyperplasia with lower urinary tract symptoms, R35.1 - Nocturia Patient Instructions: Imaging studies, laboratory and physical exam results were discussed and reviewed in detail. No major barriers to patient understanding were identified. An opportunity to ask questions regarding the treatment plan was provided. All questions were answered. The patient expressed understanding and agreement with the above treatment plan. The patient is aware they should contact our office by phone for worsening of their current condition or the appearance of new urologic symptoms. Compliance is encouraged with any medications and followup testing that is ordered. It is a privilege to participate in the urologic care of your patient. If you have any questions or concerns regarding treatment for the above conditions, or other urologic issues, please do not hesitate to contact me. The office telephone contact is [phone]. This note is constructed using voice recognition software. While every effort has been made to ensure accuracy cryptozoologist errors may have been included. Yours sincerely, Dr Jaiden De Jesus MD, [facility] - Urology Providers of Expert, Compassionate Care for the Genitourinary System Coding Level of Care Code Est Pt Level 3 (49913) Diagnoses Erectile dysfunction due to arterial insufficiency N52.01 Prostate cancer C61
== END 2024-04-19 10:02 | disposition home or self-care (01) ==
PROVIDERS: PCP Hospitalist; Visit Provider Urology
DX: N52.01 Erectile dysfunction due to arterial insufficiency (principal); C61 Malignant neoplasm of prostate; Z13.9 Encounter for screening, unspecified
CPT/HCPCS: 99213

== ENCOUNTER → 2024-04-19 09:20 | Outpatient (BNVA) | payer OTHER, SELFPAY | PROVIDERS: PCP Hospitalist; Visit Provider Urology | DX: C61 Malignant neoplasm of prostate (principal); N52.01 Erectile dysfunction due to arterial insufficiency; N40.1 Benign prostatic hyperplasia with lower urinary tract symptoms; R35.1 Nocturia | CPT/HCPCS: 81003 ==

== ENCOUNTER 2024-06-21 11:28 | Outpatient (AMB) | payer OTHER, SELFPAY ==
--- NOTE | 2024-06-21 11:34 | A.OFFVIS_ITS ---
Intake Visit Reasons: discuss testo results Intake Note: Patient is present for DISCUSS TESTO RESULTS Urology Medication:TADALAFIL,FUROSEMIDE Antibiotic Allergy:NONE Blood Thinner:[employer]ABAN [employer] Food Service Supervisor Required: No Allergies hydrochlorothiazide Allergy (Unknown, Verified 06/21/24 11:34) Unknown NSAIDS Allergy (Unknown, Uncoded 06/21/24 11:34) Unknown HPI Comments Details: Phani MANRIQUE is a very pleasant male. He is a patient of Dr Boyd. He is seen for the following urologic conditions. - prostate cancer high-grade - lower urinary tract symptoms - erectile dysfunction Telemedicine Evaluation 15 min Consultation [employer] Deangelo Video Continued biochemically controlled prostate cancer [facility] has recommended no more GnRH injections Coming off abiraterone and prednisone with Dr. Barragan He will follow with Dr Barragan for PSA every 4 months See me in six-month Oncologist - Dr Barragan 05/10 PSA <0.1, T<1 02/08 <0.1, T<1 11/08 0.16 T<1 GnRH - PMSA f/u with oncology 08/08 PSA 0.2 T <1 - combination therapy abiraterone - found small lesion spine on PMSA scan - spot radiation performed in [place] 04/09 PSA 0.5 T2 GnRH PSA 08/07 2.98 T <1, 11/07 0.6 Prostate cancer Grade Group 5 - EXBRT completed 05/08 - Last GnRH 11/08 11/07 Off abiraterone secondary to fluid related side effects Initial therapy GnRH with external beam radiation and maximum androgen blockade with GnRH and anti androgen - Radiation complete 05/08 Accelerating PSA - 11/06 8.1 F 22%, 02/[address] De Jesus for accelerating PSA 01/06 Histologic type: Adenocarcinoma, acinar type ? Edna score: 4+5=9 (right base lateral 70%, right base medial 100% and right mid lateral 90%) 4+4=8 (left base media 5% l, right mid medial 5% ) Tumor quantitation: ? Number cores positive: 5/12 ? % of tissue involved: Approximately 20% of all tissue examined 300/1200 Periprostatic fat inv.: Present Seminal vesicle inv.: Not identified Perineural inv.: Present LVI: Indeterminate GnRH injection 02/06, 08/07, 04/09 Imaging - 02/06 bone scan negative, CT scan no evidence of charo disease - large complex cyst on Left kidney Erectile dysfunction: Taking medication daily Tadalafil 5 mg, will add Flomax for urination urgency He presents today for for continued evaluation and management of erectile dysfunction. Symptoms have been present for/since Ongoing. Current treatment includes tadalafil 5 mg daily Prior therapies include oral medications 10 mg daily tadalafil with headache At this time he experiences erections are partial and adequate for vaginal penetration, that undergo rapid detumesence after penetration, RAZA 8-11 Moderate ED. Nocturnal erections do occur. Currently they are in a stable relationship. Overall he is satisfied with the current management. Therapeutic plan includes - continue surveillance in [facility] for 24 month total [facility] Medical History Asthma Nocturia BPH (benign prostatic hyperplasia) HTN (hypertension) Hydrocele Erectile dysfunction due to arterial insufficiency Bladder outlet obstruction Incomplete emptying of bladder Weak urinary stream Surgical History History of total right knee replacement History of left knee replacement Family History Father No problems noted. Mother No problems noted. Review of Systems Const All systems reviewed & are unremarkable except as noted in HPI and below Denies chills and Denies fever(s) Card Reports no additional complaints and Denies syncope Resp Denies cough GI Denies abdominal pain and Denies heartburn Reports as per HPI and Denies change in libido Musc Reports no additional complaints Neuro Denies syncope Psych Denies change in libido Endo Denies change in libido Physical Exam Telemedicine evaluation Appropriate responses Regular breathing rate and rhythm Const General: cooperative, healthy appearing, comfortable and no acute distress Orientation/consciousness: patient oriented x3 HEENT Head: Yes normal to inspection Ears: hearing grossly normal bilaterally Face and sinus: Yes normal facial exam Mouth: moist mucous membranes Eyes General: appearance normal, both eyes and all related structures Neck Neck: Yes normal visual inspection, Yes full ROM and Yes trachea midline Chest Chest palpation & inspection: normal inspection of the chest Resp Effort & Inspection: normal respiratory effort, able to speak in complete sentences and no respiratory distress GI Inspection: Yes normal to inspection Back/Spine/Pelvis Cervical Spine: normal cervical lordosis Thoracic/Lumbar Spine: thoracic and lumbar spine normal to inspection Skin General skin exam: no rashes or lesions noted Neuro General: patient oriented x3, gait normal, tone normal and moves all extremities Extrem General: Yes normal to inspection and Yes capillary refill normal Telehealth Telehealth Telehealth Platform: [employer] Location of provider rendering services: practice address Location of patient: address on file Patient Identification confirmed using: Name, : Yes Telehealth method: video Patient verbally consented to treatment: Yes Patient verbally consented to billing insurance company: Yes Patient informed of any privacy concerns related to visit: Yes Minutes spent on Phone/Video with Pt.: 15 Assessment & Plan Assessment & Plan (1) Erectile dysfunction due to arterial insufficiency: Code(s): N52.01 - Erectile dysfunction due to arterial insufficiency Category: Medical (2) Hydrocele: Code(s): N43.3 - Hydrocele, unspecified Category: Medical (3) Prostate cancer metastatic to bone: Code(s): C61 - Malignant neoplasm of prostate; C79.51 - Secondary malignant neoplasm of bone Category: Medical Plan Continue Q three-month follow-up Orders: Orders Prostate Specific Antigen 3 Months C61 - Malignant neoplasm of prostate, C79.51 - Secondary malignant neoplasm of bone Testosterone, Total 3 Months C61 - Malignant neoplasm of prostate, C79.51 - Secondary malignant neoplasm of bone Medications: Refilled tadalafil 5 mg PO DAILY 90 tabs 1RF 90 days C61 - Malignant neoplasm of prostate Patient Instructions: This note is constructed using voice recognition software. While every effort has been made to ensure accuracy solar sales errors may have been included. Imaging studies, laboratory and physical exam results were discussed and rev iewed in detail. No major barriers to patient understanding were identified. An opportunity to ask questions regarding the treatment plan was provided. All questions were answered. The patient expressed understanding and agreement with the above treatment plan. The patient is aware they should contact our office by phone for worsening of their current condition or the appearance of new urologic symptoms. Compliance is encouraged with any medications and followup testing that is ordered. It is a privilege to participate in the urologic care of your patient. If you have any questions or concerns regarding treatment for the above conditions, or other urologic issues, please do not hesitate to contact me. The office telephone contact is [phone]. Sincerely, Dr Jaiden De Jesus MD, [facility] - Urology Compassionate Specialist Care for the Genitourinary System Coding Level of Care Code Tele Est Pt Level 3 (52150) Complex EM visit Add On G2211 Diagnoses Erectile dysfunction due to arterial insufficiency N52.01 Hydrocele N43.3 Prostate cancer metastatic to bone C61; C79.51
--- OUTSIDE RECORDS SUMMARY | 2024-06-21 12:24 | XMS_ITS | Encounter Summary ---
Author Organization [facility] Address [address] [place] [address] Care Team Providers Care Spindle Carver Name Role Phone Eveline Boyd MD Primary Care Provider [phone] Encounter Details Date Type Department Care Team ([facility] st Contact Info) Description [facility] [address] [phone] Brian Rivera MD [address] [address] Social History Tobacco Use Types Packs/Day Years Used Date Smoking Tobacco: Former Smokeless Tobacco: Never Alcohol Use Standard Drinks/Week Comments Yes 0 (1 standard drink = 0.6 oz pur e alcohol) Sex and Gender Information Value Date Recorded Sex Assigned at Male 05/30/2024 11:41 AM EST Gender Identity Male 05/30/2024 11:41 AM EST Sexual Orientation Straight 05/30/2024 11 :41 AM EST Job Start Date Occupation Industry Not on file Not on file Not on file documented as of this encounter Progress Notes * Mahendra Ramon MA - 05/30/2024 10:59 AM EST Pt given appt for 10:15 am today. * Joseph Witt - 05/30/2024 8:46 AM EST Patient called to to request a apt, for SOB. Patient is having a tuft time breathing , tightness ofthe chest patient has been feeling like this for 4 days. He will like to get looked at. Patient didstate that for the past 2 1/2 years he has been on PREDNISONE due to prostate cancer and now it seems that he is experiencing these symptoms. Patient does not know what to do . Please advice documented in this encounter Plan of Treatment Upcoming Encounters Date Type Department Care Team (Late st Contact Info) Description 07/26/2024 9:45 AM EDT Office Visit Pulmonolgy - [place] [address] [phone] Brian Rivera MD [address] [address] 09/28/2024 9:00 AM EDT Office Visit [facility] Hematology Oncology [address] [place] [phone] Peña Barragan MD [address] [place] [phone] 11/09/2024 9:30 AM EDT Ancillary Procedure [facility] [address] [facility] [address] [place] [phone] documented as of this encounter Visit Diagnoses Not on filedocumented in this encounter Care Teams Spindle Carver Relationship Specialty Start Date End Date Eveline Boyd MD [address] [place] [phone] PCP - General 03/20/22 documented as of this encounter
--- OUTSIDE RECORDS SUMMARY | 2024-06-21 12:24 | XMS_ITS | Encounter Summary ---
Author Organization [facility] Address [address] [place] [address] Care Team Providers Care Central Office Supervisor Name Role Phone Eveline Boyd MD Primary Care Provider [phone] Reason for Referral * Consultation (Routine) - Closed Specialty Diagnoses / Procedures Referred By Deirdre laguerre Referred To Contact Sleep Medicine Diagnoses Paroxysmal atrial fibrillation (CMS/HCC) Snoring Mariia Pérez NP [address] [phone] [facility] [address] [address] Referral ID Status Reason Start Date Expiration Date V isits Requested Visits Authorized [id number] Closed Consult and Treat 05/24/2024 05/24/2025 1 1 Reason for Visit * Reason Comments Follow-up Encounter Details Date Type Department Care Team (Late st Contact Info) Description 05/24/2024 9:40 AM EST Office Visit [facility] [address] [facility] [address] [place] [address] Mariia Pérez NP 300 [facility] [address] [place] [address] Paroxysmal atrial fibrillation (CMS/HCC) (Primary Dx); Snoring Social History Tobacco Use Types Packs/Day Years [...] on file documented as of this encounter Last Filed Vital Signs Vital Sign Reading Time Taken Comments Blood Pressure 130/80 05/24/2024 9:36 AM EST Pulse 75 05/24/2024 9:36 AM EST Temperature - - Respiratory Rate - - Oxygen Saturation 96% 05/24/2024 9:36 AM EST Inhaled Oxygen Concentration - - Weight 108 kg (237 lb) 05/24/2024 9:36 AM EST Height 172.7 cm (5' 8 ) 05/24/2024 9:36 AM EST Body Mass Index 36.04 05/24/2024 9:36 AM EST documented in this encounter Progress Notes * Mariia Pérez, EUGENE - 05/24/2024 9:40 AM EST PRIMARY DISPENSARY ATTENDANT: Hank Garg MD PCP: Eveline Boyd MD Phani Navas is a 73 y.o. old male 1. PPM placed in July of 2019 for complete heart block. He was doing well until early 2020 when henoted left arm swelling and after an ultrasound he had an angioplasty of the subclavian vein performed with improvement of the swelling. Continue OAC 2.Primary HTN 3.Hyperlipidemia 4. TAA 5. HFpEF 6. Prostate Cancer - has completed radiation. remission 7. Chronic anemia 8. PAF - diagnosed through PPM fall - Eliquis for prior DVT - dose increased to 5 mg bid - he did cut down on ETOH use which was significant - programming evaluation of his device Echocardiogram October 2023, normal left ventricular size and systolic function, mild to moderate concentric LVH, EF 60 to 65%, grade III diastolic dysfunction, normal right ventricle, severely dilated left atrium, mild AI, ascending aorta stable at 3.9 cm. Compared to October 2022 diastolic parameters worsened, suggestion made for workup for infiltrative cardiomyopathy. Mr. 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 Several happening in the middle of the night, others correlating to likely attendance at the club. He states he has been trying to exercise more, and with discontinuation of agents for management ofhis prostate cancer he has been feeling better, more energy, is able to walk 2-3 flights of stairs without significant dyspnea. No exertional chest pain, no lightheadedness, orthostasis, PND, orthopnea, peripheral edema. ACTIVE MEDICATIONS: Outpatient Medications Marked as Taking for the 05/24/24 encounter (Office Visit) with Mariia Pérez NP Medication Sig Dispense Refill albuterol HFA (PROAIR HFA ; PROVENTIL HFA ; VENTOLIN HFA) 90 mcg/actuation inhaler Inhale 2 puffs by mouth every 6 hours as needed for wheezing or shortness of breath. amLODIPine (NORVASC) 10 mg tablet Take by mouth 1 (one) time each day. apixaban (ELIQUIS) 5 mg tablet Take 1 tablet (5 mg total) by mouth 2 (two) times a day. carvediloL (COREG) 3.125 mg tablet Take 1 tablet (3.125 mg total) by mouth 2 (two) times a day withmeals. ezetimibe (ZETIA) 10 mg tablet Take 1 tablet (10 mg total) by mouth 1 (one) time each day. Farxiga 10 mg tablet Take 1 tablet (10 mg total) by mouth 1 (one) time each day. finasteride (PROSCAR) 5 mg tablet Take 1 tablet (5 mg total) by mouth 1 (one) time each day. furosemide (LASIX) 20 mg tablet Take 1 tablet (20 mg total) by mouth 1 (one) time each day. latanoprost (XALATAN) 0.005 % ophthalmic solution Administer 1 drop into the right eye at bedtime. montelukast (SINGULAIR) 10 mg tablet Take 1 tablet (10 mg total) by mouth at bedtime. omeprazole (PriLOSEC) [address] capsule Take 1 capsule (20 mg total) by mouth 1 (one) time each day. rosuvastatin (CRESTOR) 40 mg tablet Take 1 tablet (40 mg total) by mouth 1 (one) time each day. valsartan (DIOVAN) 160 mg tablet Take 1 tablet (160 mg total) by mouth 1 (one) time each day. [DISCONTINUED] apixaban (ELIQUIS) 2.5 mg tablet Take 2 tablets (5 mg total) by mouth 2 (two) times a day. Take 1 tablet (2.5 mg total) by mouth every 12 (twelve) hours. - Oral ALLERGIES: Allergies Allergen Reactions Hydrochlorothiazide Nsaids (Non-Steroidal Anti-Inflammatory Drug) FAMILY HISTORY: Family History Problem Relation Name Age of Onset Diabetes Mother Hypertension Mother Heart attack Father Other (pacemaker) Brother SOCIAL HISTORY: Social History Tobacco Use Smoking status: Former Smokeless tobacco: Never Substance Use Topics Alcohol use: Yes PHYSICAL EXAM: Blood pressure 130/80, pulse 75, height 1.727 m (68 ), weight 108 kg (237 lb), SpO2 96%. Body mass index is 36.04 kg/m??. Physical Exam Constitutional: Appearance: He is obese. HENT: Mouth/Throat: Mouth: Mucous membranes are moist. Cardiovascular: Rate and Rhythm: Normal rate and regular rhythm. Heart sounds: Normal heart sounds. Pulmonary: Breath sounds: Normal breath sounds. Abdominal: General: Bowel sounds are normal. Palpations: Abdomen is soft. Musculoskeletal: General: Normal range of motion. Skin: General: Skin is warm and dry. Neurological: General: No focal deficit present. Mental Status: He is alert. Psychiatric: Mood and Affect: Mood normal. Encounter Date: 05/24/24 ECG 12 lead Result Value Ventricular Rate ECG 75 Atrial Rate 75 P-R Interval 152 QRS Duration 142 Q-T Interval 508 QTc 567 P Wave [place] 36 R [place] 55 T [place] -123 ECG Interpretation Atrial-sensed ventricular-paced rhythm Abnormal ECG When compared with ECG of 24-MAR-2024 13:03, Vent. rate has decreased BY 5 BPM *Note: Due to a large number of results and/or encounters for the requested time period, some results have not been displayed. A complete set of results can be found in Results Review. TESTING: Lab Results Component Value Date NA 136 03/21/2024 K 4.3 03/21/2024 CL 104 03/21/2024 CO2 26 03/21/2024 GLUCOSE 119 (H) 03/21/2024 BUN 18 03/21/2024 CREATININE 0.97 03/21/2024 CALCIUM 9.1 03/21/2024 PROT 6.5 03/21/2024 ALBUMIN 3.6 03/21/2024 BILITOT 0.6 03/21/2024 AST 32 03/21/2024 ALT 33 03/21/2024 ALKPHOS 70 03/21/2024 EGFR 82 03/21/2024 , Lab Results Component Value Date WBC 4.5 (L) 03/21/2024 HGB 13.1 (L) 03/21/2024 HCT 38.7 (L) 03/21/2024 MCV 103.5 (H) 03/21/2024 PLT 144 03/21/2024 Lab Results Component Value Date GLUCOSE 119 (H) 03/21/2024 CALCIUM 9.1 03/21/2024 NA 136 03/21/2024 K 4.3 03/21/2024 CO2 26 03/21/2024 CL 104 03/21/2024 BUN 18 03/21/2024 CREATININE 0.97 03/21/2024 , No results found for: CKTOTAL , CKMB , CKMBINDEX , TROPONINI , HSTROPI , and No results found for: CRP PAST MEDICAL HISTORY: Patient Active Problem List Diagnosis Date Noted Paroxysmal atrial fibrillation ([facility]) 03/24/2024 Chronic heart failure with preserved ejection fraction ([facility]) 03/24/2024 Mixed hyperlipidemia 03/24/2024 Prostate cancer ([facility]) 06/16/2023 DVT of deep femoral vein, right ([facility]) 12/25/2022 Stenosis of left subclavian vein 12/25/2022 Knee joint stiffness, bilateral 05/01/2017 As per AHA guidelines and previously established plan of care by Dr. Hank Garg MD we discussedthe following today: ASSESSMENT/PLAN: # Stage 3A atrial fibrillation, we discussed relationship to EtOH use, we also discussed episodes that occur in the night and likelihood of untreated obstructive sleep apnea, we discussed continued management including watchful waiting, antiarrhythmic therapy, Tikosyn, sotalol which would require hospital admission. Structural heart disease, not a good candidate for class Ic antiarrhythmic. Is young to consider long-term amiodarone. Ultimately agreed to: - Sleep studies - Decrease EtOH use to 1 drink at each event - Watchful waiting, with continued burden of prolonged episodes plan to move forward with pulmonaryvein isolation. We discussed pulsed field technology, aspects of procedure, need for preprocedural CT. This would also be an opportunity for us to assess question of infiltrative cardiomyopathy. - Will request recent thyroid studies from your office. # HFpEF, euvolemic on exam, tolerating SGLT2 inhibitor, consider transition of furosemide to spironolactone # TAA, stable, less than 4 cm, plan for repeat echocardiogram next year. # Complete heart block, status post Biotronik permanent pacemaker implantation, continue remote monitoring with monitoring of A-fib burden. # Hypertension well-managed Problem List Items Addressed This Visit Paroxysmal atrial fibrillation (CMS/HCC) - Primary Relevant Medications apixaban (ELIQUIS) 5 mg tablet rosuvastatin (CRESTOR) 40 mg tablet Other Relevant Orders ECG 12 lead (Completed) Ambulatory referral to Sleep Medicine Other Visit Diagnoses Snoring Relevant Orders Ambulatory referral to Sleep Medicine Thank you for allowing us to participate in the care of this patient. Today's documentation was made using voice recognition software.This note may contain grammatical errors secondary to this software. documented in this encounter Plan of Treatment Upcoming Encounters Date Type Department Care Team (Late st Contact Info) Description 07/26/2024 9:45 AM EDT Office Visit Pulmonol - [place] [address] [facility] [address] [place] [phone] Brian Rivera MD [address] [facility] [address] [place] [address] 09/28/2024 9:00 AM EDT Office Visit [facility] [address] [place] [phone] Peña Barragan MD [address] [place] [phone] 11/09/2024 9:30 AM EDT Ancillary Procedure [facility] - [address] [place] [phone] Scheduled Referrals Name Type Priority Associated Diagnoses Orde r Schedule Ambulatory referral to Sleep Medicine Outpatient Referral Routine Paroxysmal atrial fibrillation (CMS/HCC) Snoring 1 Occurrences starting 05/24/2024 until 05/24/2025 documented as of this encounter Procedures Procedure Name Priority Date/Time Associated Diagnosis Comments ECG 12-LEAD Routine 05/24/2024 10:26 AM EST Paroxysmal atrial fibrillation (CMS/HCC) documented in this encounter Results * ECG 12 lead (05/24/2024 10:26 AM EST) Ventricular Rate ECG 75 BPM GEMUSE Atrial Rate 75 BPM GEMUSE P-R Interval 152 ms GEMUSE QRS Duration 142 ms GEMUSE Q-T Interval 508 ms GEMUSE QTc 567 ms GEMUSE P Wave [place] 36 degrees GEMUSE R [place] 55 degrees GEMUSE T [place] -123 degrees GEMUSE ECG Interpretation Atrial-sense d ventricular- paced rhythm Abnormal ECG When compared with ECG of 24-MAR-2024 13:03, Vent. rate has decreased BY ?? 5 BPM Confirmed by Raul GARG JOHN ([id number]) on 05/30/2024 9:53:50 PM GEMUSE 05/24/2024 9:35 AM EST 05/30/2024 9:53 PM EST Mariia Pérez NP ECG ORDERABLES GEMUSE documented in this encounter Visit Diagnoses Diagnosis Paroxysmal atrial fibrillation (CMS/HCC)- Primary Atrial fibrillation Snoring Other dyspnea and respiratory abnormality Encounter for adjustment or management of cardiac device documented in this encounter Discontinued Medications Medication Sig Discontinue Reason Start Date End Da te apixaban (ELIQUIS) 2.5 mg tablet Take 2 tablets (5 mg total) by mouth 2 (two) times a day. Take 1 tablet (2.5 mg total) by mouth every 12 (twelve) hours. - Oral Duplicate order 05/24/2024 fluticasone propionate (FLONASE) 50 mcg/actuation nasal spray Administer 2 sprays into affected nostril(s) 1 (one) time each day. Prescriber Discontinued 01/09/2023 05/24/2024 methylPREDNISolone (MEDROL) 4 mg tablet follow package directions Prescriber Discontinued 02/10/2022 05/24/2024 predniSONE (DELTASONE) 2.5 mg tablet TAKE 1 TABLET BY MOUTH TWICE A DAY Prescriber Discontinued 03/28/2024 05/24/2024 predniSONE (DELTASONE) 5 mg tablet Take 1 tablet (5 mg total) by mouth 2 (two) times a day. Prescriber Discontinued 04/29/2023 05/24/2024 abiraterone (ZYTIGA) 250 mg Take 1 tablet (250 mg total) by mouth 1 (one) time each day Prescriber Discontinued 05/24/2024 tadalafiL (CIALIS) 5 mg tablet Take 1 tablet (5 mg total) by mouth 1 (one) time each day if needed for erectile dysfunction. Prescriber Discontinued 05/24/2024 tamsulosin (FLOMAX) 0.4 mg 24 hr capsule Take 1 capsule (0.4 mg total) by mouth 1 (one) time each day. Prescriber Discontinued 05/24/2024 testosterone cypionate (DEPO-TESTOTERONE) 200 mg/mL injection Prescriber Discontinued 02/26/2017 05/24/2024 umeclidinium brm/vilanterol tr (ANORO ELLIPTA INHL) Prescriber Discontinued 05/24/2024 valsartan (DIOVAN) 320 mg tablet Prescriber Discontinued 02/26/2017 05/24/2024 rosuvastatin (CRESTOR) 10 mg tablet Take 1 tablet (10 mg total) by mouth 1 (one) time each day. Duplicate order 05/24/2024 documented as of this encounter Historical Medications * This list may reflect changes made after this encounter. Medication Sig Dispensed Refills Start Date End Date rosuvastatin (CRESTOR) 40 mg tablet Take 1 tablet (40 mg total) by mouth 1 (one) time each day. latanoprost (XALATAN) 0.005 % ophthalmic solution Administer 1 drop into the right eye at bedtime. 04/06/2024 Farxiga 10 mg tablet Take 1 tablet (10 mg total) by mouth 1 (one) time each day. 04/17/2024 apixaban (ELIQUIS) 5 mg tablet Take 1 tablet (5 mg total) by mouth 2 (two) times a day. 06/09/2024 added in this encounter Care Teams Central Office Supervisor Relationship Specialty Start Date End Date Eveline Boyd MD [address] [place] [address] PCP - General 03/20/22 documented as of this encounter
--- OUTSIDE RECORDS SUMMARY | 2024-06-21 12:25 | XMS_ITS | Encounter Summary ---
Author Organization [facility] Address [address] [place] [address] Care Team Providers Care Stock Ranch Supervisor Name Role Phone Eveline Boyd MD Primary Care Provider [phone] Reason for Visit * Reason Comments Shortness of Breath SOB Encounter Details Date Type Department Care Team ([facility] st Contact Info) Description 05/30/2024 10:15 AM EST [facility] [address] [facility] [address] [place] [phone] Brian Rivera MD [address] [address] Chronic obstructive pulmonary disease, unspecified COPD type (CMS/HCC) (Primary Dx); Dyspnea, unspecified type; Congestive heart failure, unspecified HF chronicity, unspecified heart failure type (CMS/HCC) Social History Tobacco Use Types Packs/Day Years Used Date Smoking Tobacco: Former Smokeless Tobacco: Never Tobacco Cessation:Counseling Given: Not Answered Alcohol Use Standard Drinks/Week Comments Yes 0 [...] Sign Reading Time Taken Comments Blood Pressure 126/82 05/30/2024 10:36 AM EST Pulse 71 05/30/2024 10:36 AM EST Temperature 36.3 ??C (97.4 ??F) 05/30/2024 10:[address] Respiratory Rate 20 05/30/2024 10:36 AM EST Oxygen Saturation 96% 05/30/2024 10:36 AM EST Inhaled Oxygen Concentration - - Weight 110 kg (241 lb 12.8 oz) 05/30/2024 10:36 AM EST Height 172.7 cm (5' 8 ) 05/30/2024 10:36 AM EST Body Mass Index 36.77 05/30/2024 10:36 AM EST documented in this encounter Ordered Prescriptions Prescription Sig Dispensed Refills Start Date End Da te fluticasone furoate (Arnuity Ellipta) 200 mcg/actuation blister with device inhaler Inhale 1 puff by mouth 1 (one) time each day. 1 each 4 05/30/2024 05/30/2025 documented in this encounter Progress Notes * Brian Rivera MD - 05/30/2024 10:15 AM EST ADULT PULMONARY CONSULT CHIEF COMPLAINT or REASON FOR CONSULTATION: Shortness of Breath (SOB) HISTORY OF PRESENT ILLNESS: hPani Navas is a 73 y.o. years old, male with a history of multiple immunodeficiencies, reactive airway disease and prostate cancer. He is here for cough that is more or less chronic. HE got radiation for spinal involvment of the prostate cancer. He has dry cough that is worse, on prednisone and flonase that barely made no any changes. No fever, loss of appetite. Covid-19 negative. No GERD on treatment. I put on on nasal Atrovent last time and he cleared most of his cough and postnasal drip. The pt came off prednisone 2.5 mg qd x 4 weeks ago. More SOB x 1 week- took prn albuterol which did show some improvement. The prednisone wean was gradual. He felt weaker ALLERGIES: Allergies Allergen Reactions Hydrochlorothiazide Nsaids (Non-Steroidal Anti-Inflammatory Drug) ACTIVE MEDICATIONS: Outpatient Medications Marked as Taking for the 05/30/24 encounter (Office Visit) with Brian Rivera MD Medication Sig Dispense Refill albuterol HFA (PROAIR [...] by mouth 1 (one) time each day. PROVIDER ATTESTS THAT THE MEDICATION LIST WAS OBTAINED, REVIEWED AND UPDATED. REVIEW OF SYSTEMS: GENERAL: No wt lost or fever ENT: +snoring Eye: RESPIRATORY: + cough, wheezing and dyspnea CARDIOVASCULAR: No chest pain, leg swelling or palpitations GI: No abdominal discomfort, MUSCULOSKELETAL: +backpain HEMATOLOGY/LYMPHOLOGY No prolonged bleeding, easy bruisability ENDOCRINE: no DM NEURO: No focal weakness : Psych: no depression PAST MEDICAL HISTORY: Patient Active Problem List Diagnosis Date Noted Paroxysmal atrial fibrillation (CMS/HCC) 03/24/2024 Chronic heart failure with preserved ejection fraction (CMS/HCC) 03/24/2024 Mixed hyperlipidemia 03/24/2024 Prostate cancer (CMS/HCC) 06/16/2023 DVT of deep femoral vein, right ([facility]) 12/25/2022 Stenosis of left subclavian vein 12/25/2022 Knee joint stiffness, bilateral 05/01/2017 Past Surgical History: Procedure Laterality Date CARDIAC PACEMAKER PLACEMENT PROCEDURE:CARDIAC PACEMAKER PLACEMENT COLONOSCOPY PROCEDURE:COLONOSCOPY HERNIA REPAIR PROCEDURE:HERNIA REPAIR JOINT REPLACEMENT PROCEDURE:JOINT REPLACEMENT VARICOSE VEIN SURGERY PROCEDURE:VARICOSE VEIN SURGERY FAMILY HISTORY: Family History Problem Relation Name Age of Onset Diabetes Mother Hypertension Mother Heart attack Father Other (pacemaker) Brother OCCUPATION OR OCCUPATION EXPOSURE: SOCIAL HISTORY Social History Socioeconomic History Marital status: Spouse name: Not on file Number of children: Not on file Years of education: Not on file Highest education level: Not on file Occupational History Not on file Tobacco Use Smoking status: Former Smokeless tobacco: Never Substance and Sexual Activity Alcohol use: Yes Drug use: Never Sexual activity: Not on file Other Topics Concern Not on file Social History Narrative Not on file IMMUNIZATION: Immunization History Administered Date(s) Administered COVID-19 (Moderna/Spikevax) 12yo and older 02/09/2024 COVID-19 (Pfizer/Comirnaty) 12yo and older 02/15/2023 Flux [employer]/Senscient SARS-CoV-2 COVID-19, vector-nr, [id number], preservative free 08/10/2020, 03/12/2021 Pfizer (ages 12 & older) Bivalent, COVID-19 02/05/2022 PHYSICAL EXAM: Visit Vitals BP 126/82 (BP Location: Left arm, Patient Position: Sitting, BP Cuff Size: Large adult) Pulse 71 Temp 36.3 ??C (97.4 ??F) (Temporal) Resp 20 Ht 1.727 m (68 ) Wt 110 kg (241 lb 12.8 oz) SpO2 96% BMI 36.77 kg/m?? Smoking Status Former BSA 2.22 m?? APPEARANCE: Alert and in no acute distress. Overweight EYES: Conjunctiva and sclera normal. NOSE/SINUS: Nares normal. Septum midline. Mucosa No drainage or sinus tenderness. MOUTH/THROAT: no erythema or exudates. Mallampati class 2 NECK: Neck supple, thyroid symmetric and of normal size. HEART: 3/6 holosystolic murmur in the aortic area LUNG: Normal breath sounds bilaterally. Diminished breath sounds at bases, no extra wheezing ABDOMEN: Bowel sounds normoactive, soft, non-tender EXTREMITIES: no clubbing, cyanosis. 1+edema LYMPH NODES: No cervical and supra-clavicular lymphadenopathy. NEURO: Awake, alert and oriented x 3, no focalization. DIAGNOSTIC DATA: IgG= normal 04/2022 CARDIOPULMONARY TEST: Last Pulmonary function Test showed: Impression FEV1/FVC 73% FEV1 3.10 at 105%. No bronchodilator change. FVC 105%. TLC 116% RV 131% DLCO 95%. April 2022 no obstruction, no restriction and normal diffusing capacity. Normal pulmonary function test RADIOLOGIST IMAGING: CT Chest W - 11/05/23 - [id number] Report Status:Signed EXAMINATION: CT chest with contrast. CLINICAL INDICATION: Prostate CA. COMPARISON: Chest 2 views 08/04/[address] 04/17/2023. FINDINGS: LUNGS: The lungs are well-expanded without any acute pneumonic consolidation. Focal atelectatic changes are seen in the right lung base. Previously described juxta opacity/nodule right lower lobe measuring 1.5 x 5 mm is stable. Previously measured 13 x 5 mm and prior to that 11 x 5 mm. 3 mm solid nodule subpleural based right lower lobe axial image 55/3 is stable. 2 mm nodule right upper lobe axial image 50/3 is stable as well. Other smaller 5 mm less nodules in the right upper lobe are not visualized. Mediastinum: Thyroid lobes are symmetric and normal. The central trachea and the bronchi are widelypatent. Heart size and the great vessels are normal caliber. There are pacer electrodes right atrium and right ventricle. No pericardial effusion seen. Minimal coronary artery calcifications are present. 1.1 cm right paratracheal and a small subcarinal short axis lymph nodes are stable. Fluid and fat attenuation soft tissue seen in the posterior mediastinum, stable. Axilla: The chest wall is unremarkable. No abnormal size axillary lymph nodes seen. No aggressive osseous structures: Upper abdomen: There is a 1.8 cm slightly heterogeneous enhancing lesion right hepatic lobe just inthe dome of the diaphragm seen on the previous study and exam on 2018, probable hemangioma. There is a small round hypodensity left hepatic lobe adjacent to the falciform ligament, stable, probable cyst. There is a third enhancing lesion seen in the right hepatic lobe more central on axial image 8 3/3 probable a small hemangioma. It measures about 1.5 cm and not visualized on the last exam. Visualized spleen, adrenal glands, pancreas and gallbladder is unremarkable. There are bilateral renal cysts. Osseous structures: No aggressive lytic or sclerotic process seen. There is mild ventral spondylosis mid and lower dorsal spine. There is a sclerotic lesion posterior T3 vertebra. There is a hemangioma of T10 vertebra. Sclerotic density seen in the right anterior sixth rib has significantly improved IMPRESSION: Stable bilateral pulmonary nodules, fluid and fatty tissue posterior mediastinum. No new pulmonary nodules or masses seen. There are to faintly enhancing lesion in the right hepatic lobe likely hemangioma, no lesion along the dome is stable. The lesion centrally is new. If clinically desired MRI or CT hemangioma protocolcan be performed. Small hypodensity adjacent to falciform ligament likely small cyst. There are bilateral renal cysts. Sclerotic density T3 vertebra, hemangioma T10 vertebra are stable. Sclerotic density right anteriorsixth rib has significantly improved and almost resolved. ASSESSMENT: ICD-10-CM ICD-9-CM 1. Chronic obstructive pulmonary disease, unspecified COPD type (CMS/HCC) J44.9 496 CBC and differential XR Chest 2 Views 2. Dyspnea, unspecified type R06.00 786.09 B-type natriuretic peptide 3. Congestive heart failure, unspecified HF chronicity, unspecified heart failure type (CMS/HCC) I50.9 428.0 PLAN: The patient is more dyspneic, the pulm exam did not show any active wheezing. I did a chest x-ray CBC and BMP today. The CBC did not show any anemia or leukocytosis, the BNP was elevated the chest x-ray has not been officially read but there is increased effusion versus atelectasis and decreased lung volume at the lung bases. Overall picture here is more consistent with fluid overload/pulm edema rather than any pulmonary issues. I spoke with the patient and recommend that he take his Lasix 20 daily to 20 twice daily for the next 3 days. The patient is prednisone recently was. I warn him of the symptoms of adrenal insufficiency. I will change his montelukast to Advair - Follow up with Eveline Boyd MD for the other co-morbilities. - I spend 41 Minutes on this visit. The patient was educated about his problems, where assessment and plan was reviewed and explained, All questions were answered. RETURN TO THE NEXT VISIT: Based on physical exam, symptomatology, tests requested and baseline pulmonary evaluation/disease, I instructed the patient to come back to see me in 4 mths for reevaluation after the test has been done or earlier if the patient needed. Thanks Eveline Boyd MD for allowing me to have the opportunity to assist in the care of this patient. documented in this encounter Plan of Treatment Upcoming Encounters Date Type Department Care Team (Late st Contact Info) Description 07/26/2024 9:45 AM EDT Office Visit Pulmonolgy - [place] 175 [facility] [address] [place] [phone] Brian Rivera MD 175 [facility] [address] [place] [address] 09/28/2024 9:00 AM EDT Office Visit [facility] Hematology Oncology [address] [place] [phone] Peña Barragan MD [address] [place] [phone] 11/09/2024 9:30 AM EDT Ancillary Procedure [facility] - [facility] [address] [facility] [address] [place] [phone] documented as of this encounter Results * XR Chest 2 Views (05/30/2024 11:54 AM EST) Anatomical Region Laterality Modality Body Radiographic Odilia ging 06/01/2024 9:15 AM EST Impressions 06/01/2024 9:17 AM EST Low lung volumes with moderate interstitial opacities in the mid and lower lung zones. This represents interval worsening. I doubt significant drainable pleural fluid. -------- FINAL REPORT -------- Dictated By: Mitchell Gonzalez Dictated Date: 06/01/2024 09:15 ET Assigned Physician: Mitchell Gonzalez Reviewed and Electronically Signed By: Mitchell Gonzalez Signed Date: 06/01/2024 09:17 ET Workstation ID: [id number] Transcribed By: Self Edit Transcribed Date: 06/01/2024 09:15 ET Narrative 06/01/2024 9:17 AM EST EXAMINATION: CHEST CLINICAL INFORMATION: COPD. Clinical concern for pneumonia. Dyspnea on exertion COMPARISON: Frontal view 08/04/2023 TECHNIQUE: 2 views of the chest FINDINGS: Power generator in the left chest with leads projecting in the region of the right atrium and right ventricle. Calcification of the aortic arch. The cardiac size is top normal. The mediastinal contours are indistinct. There is no large hilar mass. There are low lung volumes. There are reticular and linear lower lung zone opacities with some blunting of the costophrenic sulci. No dense focal pneumonia in the upper lung zones. Exaggerated thoracic kyphosis. Procedure Note Mitchell Gonzalez, - 06/01/2024 EXAMINATION: CHEST CLINICAL INFORMATION: COPD. Clinical concern for pneumonia. Dyspnea on exertion COMPARISON: Frontal view 08/04/2023 TECHNIQUE: 2 views of the chest FINDINGS: Power generator in the left chest with leads projecting in the region ofthe right atrium and right ventricle. Calcification of the aortic arch. The cardiac size is top normal. Themediastinal contours are indistinct. There is no large hilar mass. There are low lung volumes. There are reticular and linear lower lung zoneopacities with some blunting of the costophrenic sulci. No dense focalpneumonia in the upper lung zones. Exaggerated thoracic kyphosis. IMPRESSION: Low lung volumes with moderate interstitial opacities in the mid and lowerlung zones. This represents interval worsening. I doubt significant drainable pleural fluid. -------- FINAL REPORT -------- Dictated By: Mitchell Gonzalez Dictated Date: 06/01/2024 09:15 ET Assigned Physician: Mitchell Gonzalez Reviewed and Electronically Signed By: Mitchell Gonzalez Signed Date: 06/01/2024 09:17 ET Workstation ID: [id number] Transcribed By: Self Edit Transcribed Date: 06/01/2024 09:15 ET Brian Rivera MD IMG XR PROCEDURES * (ABNORMAL) B-type natriuretic peptide (05/30/2024 11:21 AM EST) BNP 402(H) <=100 pcg/mL LAB CHEMISTRY METHOD 05/30/2024 3:23 PM EST [facility] Blood Venous blood specimen / Unknown Venipuncture / Unknown 05/30/2024 11:21 AM EST 05/30/2024 11:21 AM EST Brian Rivera MD LAB BLOOD ORDERABLES [facility] [address] [place] [address], documented in this encounter Visit Diagnoses Diagnosis Chronic obstructive pulmonary disease, unspecified COPD type (CMS/HCC)- Primary Dyspnea, unspecified type Congestive heart failure, unspecified HF chronicity, unspecified heart failure type (CMS/HCC) Chronic obstructive pulmonary disease, unspecified COPD type (CMS/HCC) Encounter for adjustment or management of cardiac device documented in this encounter Care Teams Stock Ranch Supervisor Relationship Specialty Start Date End Date Eveline Boyd MD [address] [place] [address] PCP - General 03/20/22 documented as of this encounter
--- OUTSIDE RECORDS SUMMARY | 2024-06-21 12:25 | XMS_ITS | Encounter Summary ---
Author Organization [facility] Address [address] [place] [address] Care Team Providers Care Geotechnician Name Role Phone Eveline Boyd MD Primary Care Provider [phone] Encounter Details Date Type Department Care Team (Latest Contact Info) Description 05/30/2024 11:43 AM EST - 05/30/2024 11:59 PM EST Hospital Encounter [facility] Xray [address] [place] [phone] Chronic obstructive pulmonary disease, unspecified COPD type (CMS/HCC) Discharge Disposition: Home or Self Care Social History Tobacco Use Types Packs/Day Years [...] on file documented as of this encounter Medications at Time of Discharge Medication Sig Dispensed Refills Start Date End Date albuterol HFA (PROAIR HFA ; PROVENTIL HFA ; VENTOLIN HFA) 90 mcg/actuation inhaler Inhale 2 puffs by mouth every 6 hours as needed for wheezing or shortness of breath. 02/10/2022 amLODIPine (NORVASC) 10 mg tablet Take by mouth 1 (one) time each day. amLODIPine (NORVASC) 5 mg tablet Take 1 tablet (5 mg total) by mouth 1 (one) time each day. carvediloL (COREG) 3.125 mg tablet Take 1 tablet (3.125 mg total) by mouth 2 (two) times a day with meals. 10/22/2022 ezetimibe (ZETIA) 10 mg tablet Take 1 tablet (10 mg total) by mouth 1 (one) time each day. 07/21/2019 Farxiga 10 mg tablet Take 1 tablet (10 mg total) by mouth 1 (one) time each day. 04/17/2024 finasteride (PROSCAR) 5 mg tablet Take 1 tablet (5 mg total) by mouth 1 (one) time each day. fluticasone furoate (Arnuity Ellipta) 200 mcg/actuation blister with device inhaler Inhale 1 puff by mouth 1 (one) time each day. 1 each 4 05/30/2024 05/30/2025 latanoprost (XALATAN) 0.005 % ophthalmic solution Administer 1 drop into the right eye at bedtime. 04/06/2024 montelukast (SINGULAIR) 10 mg tablet Take 1 [...] mouth 2 (two) times a day. 06/09/2024 furosemide (LASIX) 20 mg tablet Take 1 tablet (20 mg total) by mouth 1 (one) time each day. 05/31/2024 documented as of this encounter Discharge Disposition Disposition Code Departure Means Destination Home or Self Care documented in this encounter Plan of Treatment Upcoming Encounters Date Type Department Care Team (Late st Contact Info) Description 07/26/2024 9:45 AM EDT Office Visit [facility] [address] [address] Brian Rivera MD 175 [facility] 200 [place] [address] 09/28/2024 9:00 AM EDT Office Visit [facility] Hematology Oncology [address] [place] [address] Peña Barragan MD [address] [place] [address] 11/09/2024 9:30 AM EDT Ancillary Procedure [facility] - [address] [facility] [address] [place] [phone] documented as of this encounter Procedures Procedure Name Priority Date/Time Associated Diagnosis Comments XR CHEST 2 VIEWS Routine 05/30/2024 11:5 4 AM EST Chronic obstructive pulmonary disease, unspecified COPD type (CMS/HCC) documented in this encounter Results * XR Chest 2 [...] Signed Date: 06/01/2024 09:17 ET Workstation ID: [id number] Transcribed By: Self Edit Transcribed Date: 06/01/2024 [...] zones. Exaggerated thoracic kyphosis. Procedure Note Mitchell Gonzalez MD - 06/01/2024 EXAMINATION: CHEST CLINICAL INFORMATION: COPD. [...] Signed Date: 06/01/2024 09:17 ET Workstation ID: [id number] Transcribed By: Self Edit Transcribed Date: 06/01/2024 09:15 ET Brian Rivera MD IMG XR PROCEDURES documented in this encounter Visit Diagnoses Diagnosis Chronic obstructive pulmonary disease, unspecified COPD type ([facility]) Encounter for adjustment or management of cardiac device documented in this encounter Care Teams Geotechnician Relationship Specialty Start Date End Date Eveline Boyd MD [address] [place] [address] PCP - General 03/20/22 documented as of this encounter
--- OUTSIDE RECORDS SUMMARY | 2024-06-21 12:25 | XMS_ITS | Encounter Summary ---
Author Organization [facility] Address [address] [place] [address] Care Team Providers Care Strip Picker Name Role Phone Eveline Boyd MD Primary Care Provider [phone] Encounter Details Date Type Department Care Team (Late st Contact Info) Description 03/15/2024 8:20 AM EDT Hospital Encounter TH HISTORIC ENCOUNTERS EASTERN CONVERSION ONLY Peña Barragan MD [address] [place] [phone] Social History Tobacco Use Types Packs/Day Years [...] on file documented as of this encounter Procedure Notes [...] 9:45 AM EDT Office Visit Pulmonolgy - [place] [address] [phone] Brian Rivera MD [address] [address] 09/28/2024 9:00 AM EDT Office Visit [facility] Hematology Oncology [address] [place] [phone] Peña Barragan MD [address] [place] [phone] 11/09/2024 9:30 AM EDT Ancillary Procedure [facility] - [facility] [address] [facility] [address] [place] [phone] documented as of this encounter Visit Diagnoses Not on filedocumented in this encounter Care Teams Strip Picker Relationship Specialty Start Date End Date Eveline Boyd MD [address] [place] [address] PCP - General 03/20/22 documented as of this encounter
--- OUTSIDE RECORDS SUMMARY | 2024-06-21 12:25 | XMS_ITS | Encounter Summary ---
Author Organization [facility] Address [address] [place] [address] Care Team Providers Care System Configuration Specialist Name Role Phone Eveline Boyd MD Primary Care Provider [phone] Reason for Visit * Reason Onset Date Comments Results 05/30/2024 Encounter Details Date Type Department Care Team ([facility] st Contact Info) Description [facility] [address] [phone] Brian Rivera MD [address] [address] Results (/) Social History Tobacco Use Types Packs/Day Years [...] as of this encounter Progress Notes * Fabiola Art MA - 05/31/2024 9:15 AM EST Please review and advised results scanned in to chart * Joseph Witt - 05/30/2024 3:13 PM EST Patient called to request a call back with results for his blood work and Xray please advice. documented in this encounter Plan of Treatment Upcoming Encounters Date Type Department Care Team (Late st Contact Info) Description 07/26/2024 9:45 AM EDT Office Visit Pulmonolgy - [place] 175 [facility] [address] [place] [phone] Brian Rivera MD 175 [facility] [address] [place] [address] 09/28/2024 9:00 AM EDT Office Visit [facility] Hematology Oncology [address] [place] [phone] Peña Barragan MD [address] [place] [phone] 11/09/2024 9:30 AM EDT Ancillary Procedure [facility] - [facility] [address] [facility] [address] [place] [phone] documented as of this encounter Visit Diagnoses Not on filedocumented in this encounter Care Teams System Configuration Specialist Relationship Specialty Start Date End Date Eveline Boyd MD [address] [place] [phone] PCP - General 03/20/22 documented as of this encounter
--- OUTSIDE RECORDS SUMMARY | 2024-06-21 12:25 | XMS_ITS | Encounter Summary ---
Author Organization [employer] Address [address] [place] [address] Care Team Providers Care Wooden Barrel Mechanic Name Role Phone Eveline Boyd MD Primary Care Provider [phone] Encounter Details Date Type Department Care Team (Late st Contact Info) Description 06/21/2024 Telephone [facility] [address] [facility] [address] [place] [phone] Heather Leon PA [address] [place] [address] Social History Tobacco Use Types Packs/Day Years [...] as of this encounter Progress Notes * JESSE Sofia - 06/21/2024 10:55 AM EST See MURJ encounter titled Ancillary Procedure, report may be found under media, dated: FYI will continue monitor burden June 15 starting 11:57 PM 16 hours and 36 minutes of rate controlled A-fib mean ventricular rate64 bpm, last episode June 17 at 5:40 AM duration 20 minutes Anticoagulated for stroke reduction documented in this encounter Plan of Treatment Upcoming Encounters Date Type Department Care Team (Late st Contact Info) Description 07/26/2024 9:45 AM EDT Office Visit Pulmonolgy - [place] 175 [facility] 200 [place] [address] Brian Rivera MD 175 [facility] 200 [place] [address] 09/28/2024 9:00 AM EDT Office Visit [facility] Hematology Oncology [address] [place] [phone] Peña Barragan MD 271 [place] [phone] 11/09/2024 9:30 AM EDT Ancillary Procedure [facility] Cardiology Associates - [facility] 154 300 [facility] 154 [place] [phone] documented as of this encounter Visit Diagnoses Not on filedocumented in this encounter Care Teams Wooden Barrel Mechanic Relationship Specialty Start Date End Date Eveline Boyd MD [address] [place] [address] PCP - General 03/20/22 documented as of this encounter
--- OUTSIDE RECORDS SUMMARY | 2024-06-21 12:25 | XMS_ITS | Encounter Summary ---
Author Organization [facility] Address [address] [place] [address] Care Team Providers Care Senior Ux Developer Name Role Phone Pio Boydmathomas Temple MD Primary Care Provider [phone] Encounter Details Date Type Department Care Team (Late Contact Info) Description 02/16/2024 10:38 AM EDT Hospital Encounter TH HISTORIC ENCOUNTERS EASTERN CONVERSION ONLY Peña Barragan MD 271 [place] [phone] Social History Tobacco Use Types Packs/Day Years [...] on file documented as of this encounter Plan of Treatment Upcoming Encounters Date Type Department Care Team (Late Contact Info) Description 07/26/2024 9:45 AM EDT [facility] [address] [phone] Brian Rivera MD [address] [address] 09/28/2024 9:00 AM EDT Office Visit [facility] Hematology Oncology 271 [place] [phone] Peña Barragan MD 271 [place] [address] 11/09/2024 9:30 AM EDT Ancillary Procedure [facility] Card[facility] - [facility] [address] 300 [facility] 154 [place] [phone] documented as of this encounter Visit Diagnoses Not on filedocumented in this encounter Care Teams Senior Ux Developer Relationship Specialty Start Date End Date Eveline Boyd MD [address] [place] [phone] PCP - General 03/20/22 documented as of this encounter
--- OUTSIDE RECORDS SUMMARY | 2024-06-21 12:25 | XMS_ITS | Clinical Summary ---
Author Organization [facility] Address [address] [place] [address] Care Team Providers Care Professor Of Social Work Name Role Phone Eveline Boyd MD Primary Care Provider [phone] Allergies Active Allergy Reactions Criticality Noted Date Comments Hydrochlorothiazide 02/06/2022 Nsaids 05/01/2017 Medications Medication Sig Dispensed Refills Start Date End Date Status testosterone cypionate (DEPO-TESTOSTERONE CYPIONATE) injection 200 mg/mL 5 02/26/2017 Activ e valsartan (DIOVAN) tablet 320 mg 3 02/26/2017 Active amLODIPine (NORVASC) tablet 10 mg Take by mouth daily. 0 Active rosuvastatin (CRESTOR) tablet 10 mg Take 1 tablet (10 mg total) by mouth daily. 0 Active montelukast (SINGULAIR) 10 MG tablet Take 1 tablet (10 mg total) by mouth every night at bedtime. 0 Active omeprazole (PRILOSEC) 20 MG capsule Take 1 capsule (20 mg total) by mouth daily. 0 Active fluticasone-vilante rol (BREO ELLIPTA) 100-25 MCG/INH inhaler 1 inhalation. by Inhaled route daily. 0 Active amLODIPine (NORVASC) tablet 5 mg Take 1 tablet (5 mg total) by mouth daily. 0 Active Umeclidinium-Vilant gerry (ANORO ELLIPTA IN) Inhale into the lungs. 0 Active ezetimibe (ZETIA) tablet 10 mg Take 1 tablet (10 mg total) by mouth daily. 0 Active furosemide (LASIX) 20 MG tablet Take 1 tablet (20 mg total) by mouth daily. 0 Active valsartan (DIOVAN) tablet 160 mg Take 1 tablet (160 mg total) by mouth daily. 0 Active apixaban (ELIQUIS) 2.5 MG TABS tablet Take 1 tablet (2.5 mg total) by mouth every 12 (twelve) hours. 0 Active doxycycline (ADOXA) 100 MG tablet Take 1 tablet (100 mg total) by mouth daily. 0 Active tadalafil (CIALIS) 5 MG tablet Take 1 tablet (5 mg total) by mouth daily as needed for erectile dysfunction. 0 Active finasteride (PROSCAR) 5 MG tablet Take 1 tablet (5 mg total) by mouth daily. 0 Active tamsulosin (FLOMAX) 0.4 MG CAPS Take 1 capsule (0.4 mg total) by mouth daily. 0 Active albuterol 108 (90 Base) MCG/ACT inhaler Inhale 2 puffs into the lungs every 6 (six) hours as needed for wheezing or shortness of breath. 6.7 g 2 02/10/2022 Active methylPREDNISolone (MEDROL DOSEPACK) 4 MG tablet follow package directions 21 tablet 0 02/10/2022 Active carvedilol (COREG) 3.125 MG tablet Take by mouth 2 (two) times a day with meals. 0 Active Abiraterone Acetate ([facility] [id number] abiraterone 250MG tablet) 250 MG TABS Take 1 each (250 mg total) by mouth daily. 3 po am 0 Active abiraterone (ZYTIGA) 250 MG tablet TAKE 3 TABLETS BY MOUTH EVERY MORNING ON AN EMPTY STOMACH 90 tablet 5 01/05/2024 Active predniSONE (DELTASONE) tablet 2.5 mg Take 1 tablet (2.5 mg total) by mouth 2 (two) times a day. 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 Knee joint stiffness, bilateral 05/01/2017 Encounters Date Type Department Care Team Description 03/22/2024 Travel from Last 3 Months Family History Medical History Relation Name Comments Diabetes Mother Hypertension Mother Relation Name Status Comments Father Mother Social History Tobacco Use Types Packs/Day Years Used Date Smoking Tobacco: Former Cigarettes Smokeless Tobacco: Never Comments:Quit 25 years ago. Alcohol Use Standard Drinks/Week Comments Yes 0 (1 standard drink = 0.6 oz pur e alcohol) Sex and Gender Information Value Date Recorded Sex Assigned at Not on file Gender Identity Not on file Sexual Orientation Not on file Job Start Date Occupation Industry Not on file Not on file Not on file Last Filed Vital Signs Vital Sign Reading Time Taken Comments Blood Pressure 130/70 02/03/2024 10:39 AM EDT Pulse 98 02/03/2024 10:39 AM EDT Temperature 36.8 ??C (98.2 ??F) 02/03/2024 10:39 AM E DT Respiratory Rate - - Oxygen Saturation 100% 02/03/2024 10:39 AM EDT Inhaled Oxygen Concentration - - Weight 105.7 kg (233 lb) 02/03/2024 10:39 AM EDT Height 172.7 cm (5' 8 ) 02/03/2024 10:39 AM EDT Body Mass Index 35.43 02/03/2024 10:39 AM EDT Plan of Treatment Health Maintenance Due Date Last Done Comments Hepatitis C Screening 1950 COVID-19 Vaccine (#1) 1955 Depression Screening 1962 BMI Counseling 1968 Preventative Health Evaluation 1968 DTap / Tdap / Td (1 - Tdap) 1969 Shingrix-Zoster Vaccine (1 of 2) 1969 Colon Cancer Screening (Colonoscopy) 1995 Fall Risk Assessment 2015 Pneumococcal Vaccine (2 of 2 - PCV) 12/01/2018 12/01/2017 Influenza Vaccine (#1) 2024 03/01/2018 RSV Adult > 60+ Yrs or Pregn ant (1 - 1-dose 75+ series) 2025 Hepatitis B Vaccines Aged Out No long er eligible based on patient's age to complete this topic RSV Ped < 20 months Aged Out No longe r eligible based on patient's age to complete this topic Care Teams Professor Of Social Work Relationship Specialty Start Date End Date Eveline Boyd MD [address] [place] [address] PCP - General Internal Medicine 03/20/22
--- OUTSIDE RECORDS SUMMARY | 2024-06-21 12:25 | XMS_ITS | Encounter Summary ---
Author Organization [facility] Address [address] [place] [address] Care Team Providers Care Escort Patients Name Role Phone Eveline Boyd MD Primary Care Provider [phone] Encounter Details Date Type Department Care Team ([facility] Contact Info) Description 06/21/2024 11:00 AM EST Ancillary Procedure [facility] Cardiology Associates - [facility] 154 300 [facility] 154 [place] [phone] Arrived Social History Tobacco Use Types Packs/Day Years [...] Description 07/26/2024 9:45 AM EDT [facility] 175 [facility] 200 [place] [address] Brian Rivera MD 175 [facility] 200 [place] [address] 09/28/2024 9:00 AM EDT Office Visit [facility] Hematology Oncology 271 [place] [address] Peña Barragan MD 271 [place] [address] 11/09/2024 9:30 AM EDT Ancillary Procedure [facility]iology Associates - [address] [place] [address] documented as of this encounter Procedures Procedure Name Priority Date/Time Associated Diagnosis Comments CARDIAC DEVICE CHECK- REMOTE- MURJ Routine 06/21/2024 10:58 AM EST documented in this encounter Results * Cardiac device check - Remote- MURJ (06/21/2024 10:58 AM EST) Date Time Interrogation Session [id number] CV DEVICE CHECK Type Interrogation Session Remote CV DEVICE CHECK Implantable Pulse Generator Sleeve Tailor BIO CV DEVICE CHECK Implantable Pulse Generator Type IPG CV DEVICE CHECK Implantable Pulse Generator Model Edora 8 DR-T CV DEVICE CHECK Implantable Pulse Generator Serial Number [id number] CV DEVICE CHECK Implantable Pulse Generator Implant Date [id number] CV DEVICE CHECK Battery Remaining Percentage 50.00 CV DEVICE CHECK Battery Status Middle of Service CV DEVICE CHECK Victoriano Statistic RA Percent Paced 0.00 CV DEVICE CHECK Victoriano Statistic RV Percent Paced 100.00 CV DEVICE CHECK Atrial Tachy Statistic AT/AF [place] Percent 5.00 CV DEVICE CHECK Lead Channel Sensing Intrinsic Amplitude 1.600 CV DEVICE CHECK Lead Channel Impedance Value 546 CV DEVICE CHECK Lead Channel RA Pacing Threshold Date 2024-06-17 CV DEVICE CHECK Lead Channel Setting Pacing Amplitude 2.500 CV DEVICE CHECK Lead Channel Setting Pacing Pulse Width 0.4 CV DEVICE CHECK Lead Channel Sensing Intrinsic Amplitude 10.400 CV DEVICE CHECK Lead Channel Impedance Value 507 CV DEVICE CHECK Lead Channel RV Pacing Threshold Date 2024-06-17 CV DEVICE CHECK Lead Channel Setting Pacing Amplitude 4.800 CV DEVICE CHECK Lead Channel Setting Pacing Pulse Width 0.4 CV DEVICE CHECK Victoriano Setting Mode (NBG Code) DDD CV DEVICE CHECK Victoriano Setting Lower Rate Limit 50 CV DEVICE CHECK Victoriano Setting AT Mode Switch Rate 160 CV DEVICE CHECK Victoriano Setting Maximum Tracking Rate 140 CV DEVICE CHECK Victoriano Setting Maximum Sensor Rate 130 CV DEVICE CHECK Victoriano Setting PAV Delay 130 CV DEVICE CHECK Victoriano Setting CONSUELO Delay 110 CV DEVICE CHECK Date of Service 2024-07-16 CV DEVICE CHECK Anatomical Region Laterality Modality Device Interroga tion 06/17/2024 1:54 AM EST Impressions 06/21/2024 10:57 AM EST Increased AF [place] * Device diagnostics indicate increased AT/AF burden since last check * Current AT/AF [place]: 98% over the last 24 hours, 5% over device lifetime. * Prior AT/AF [place]: 0% * Overall rate controlled * Longest episode: 12 hours 24 minutes. * Patient is on Eliquis per [employer] Narrative Procedure Note Heather Leon PA - 06/21/2024 IMPRESSION: Increased AF [place] * Device diagnostics indicate increased AT/AF burden since last check * Current AT/AF [place]: 98% over the last 24 hours, 5% over devicelifetime. * Prior AT/AF [place]: 0% * Overall rate controlled * Longest episode: 12 hours 24 minutes. * Patient is on Eliquis per [employer] Heather MOLINA CV IMPLANTABLE CARDI AC DEVICE PROCEDURES documented in this encounter Visit Diagnoses Not on filedocumented in this encounter Care Teams Escort Patients Relationship Specialty Start Date End Date Eveline Boyd MD [address] [place] [address] PCP - General 03/20/22 documented as of this encounter
--- OUTSIDE RECORDS SUMMARY | 2024-06-21 12:25 | XMS_ITS | Encounter Summary ---
Author Organization [facility] Address [address] [place] [address] Care Team Providers Care New Accounts Representative Name Role Phone Eveline Boyd MD Primary Care Provider [phone] Reason for Visit * Reason Onset Date Comments fluid in lungs 05/31/2024 Encounter Details Date Type Department Care Team (Late st Contact Info) Description 05/31/2024 Telephone [facility] - [facility] [address] 300 [facility] 154 [place] [phone] Mariia Pérez NP 300 [facility] 154 [place] [phone] fluid in lungs Social History Tobacco Use Types Packs/Day Years [...] on file documented as of this encounter Ordered Prescriptions Prescription Sig Dispensed Refills Start Date End Da te furosemide (LASIX) 20 mg tablet Take 1 tablet (20 mg total) by mouth 1 (one) time each day. 90 tablet 1 05/31/2024 documented in this encounter Progress Notes * Jessi Willams RN - 05/31/2024 10:06 AM EST Called pt back this AM. Made aware of recommendations below from Wendie Pérez. Is aware to restart Lasix 20mg daily - [facility] [address] - RX sent to requested pharmacy with confirmation. Is aware to repeat labs in one week, will use [facility], BNP/BMP ordered and pt is aware orders are entered into the system. Is aware for any changes is s/s to call the office back. Is aware to be aware of any worsening HF s/s, is aware of when to call 911 for any concerning s/s. Is thankful for thecall back. * Mariia Pérez NP - 05/31/2024 9:50 AM EST My note from 05/24 notes that Lasix was to be continued and that we would consider transitioning to Spironolactone - Have him resume the lasix at 20 mg daily - BMP and BNP next week. Good job abstaining! * Jessi Willams RN - 05/31/2024 9:26 AM EST Had a referral for sleep medicine - do we know which sleep medicine services this was sent to? Pt states he has not heard from them yet. * Jessi Willams RN - 05/31/2024 8:47 AM EST Images from the original note were not included. CXR was ordered by pulmonology, please see OV notes from yesterday - 05/30 in [employer]. Per Brian Rivera MD OV notes: CXR images available in [employer] for review. Called pt this AM. States he has abruptly stopped drinking alcohol based on the advisement of Wendie Pérez during ARCENIO on 05/24/24 - states he stopped drinking that day. Had noticed increased RINCON 2 days after his OV with Wendie Pérez. Denies SOB at rest, PND, orthopnea, CP, cough. States weight gain 6lbs in 2 days - current weight is 232, was 226 and had been consistent at this weight prior. Has minimal swelling in his legs, ankles, and feet. Has not been taking Lasix 20mg daily since being put on Farxiga back on February 11, 2024. He was under the impression that he was switched to Farxiga from the Lasix. He does not have any Lasix on hand - [facility] [address] [facility]. Is aware for any SOB where he can not catch his breath or feeling like he will pass out to call 911. * Corie Witt - 05/31/2024 8:36 AM EST Patient calling, he had a X RAY done yesterday at [facility]. The results showed patient having fluid inhis lungs. He's requesting to speak to his providers about this. documented in this encounter Plan of Treatment Upcoming Encounters Date Type Department Care Team (Late st Contact Info) Description 07/26/2024 9:45 AM EDT Office Visit Pulmonolgy - [place] 175 [facility] 200 [place] [phone] Brian Rivera MD 175 [facility] 200 [place] [address] 09/28/2024 9:00 AM EDT Office Visit [facility] Hematology Oncology [address] [place] [phone] Peña Barragan MD 271 [place] [phone] 11/09/2024 9:30 AM EDT Ancillary Procedure [facility] - [facility] 154 300 [facility] 154 [place] [phone] documented as of this encounter Results * (ABNORMAL) B-type natriuretic peptide (06/02/2024 4:00 PM EST) BNP 225(H) <=100 pcg/mL LAB CHEMISTRY METHOD 06/02/2024 7:23 PM [facility] Blood Venous blood specimen / Unknown Venipuncture / Unknown 06/02/2024 4:00 PM EST 06/02/2024 4:00 PM EST Mariia Pérez NP LAB BLOOD ORDERABLES [facility] [address] [place] [address], * Basic metabolic panel (06/02/2024 4:00 PM EST) Sodium 133 133 - 145 mmol/L LAB CHEMISTRY METHOD 06/02/2024 9:41 PM [facility] Potassium 3.8 3.5 - 5.5 mmol/L LAB CHEMISTRY METHOD 06/02/2024 9:41 PM [facility] Chloride 99 96 - 110 mmol/L LAB CHEMISTRY METHOD 06/02/2024 9:41 PM [facility] CO2 27 21 - 32 mmol/L LAB CHEMISTRY METHOD 06/02/2024 9:41 PM [facility] Anion Gap 7 3 - 11 LAB CHEMISTRY METHOD 06/02/2024 9:41 PM [facility] Glucose 80 70 - 100 mg/dL LAB CHEMISTRY METHOD 06/02/2024 9:41 PM [facility] BUN 11 5 - 25 mg/dL LAB CHEMISTRY METHOD 06/02/2024 9:41 PM [facility] Creatinine 0.82 0.70 - 1.30 mg/dL LAB CHEMISTRY METHOD 06/02/2024 9:41 PM [facility] eGFR 93 >=60 mL/min/1. 73m2 LAB CHEMISTRY METHOD 06/02/2024 9:41 PM EST [facility] Comment:Calculation based on the??Chronic Kidney Disease Epidemiology Collaboration (CKD-EPI) equation refit??without adjustment for race. BUN/Creatinine Ratio 13.4 LAB CHEMISTRY METHOD 06/02/2024 9:41 PM EST [facility] Calcium 8.5 8.5 - 10.5 mg/dL LAB CHEMISTRY METHOD 06/02/2024 9:41 PM EST [facility] Blood Venous blood specimen / Unknown Venipuncture / Unknown 06/02/2024 4:00 PM EST 06/02/2024 4:00 PM EST Mariia Pérez [employer] LAB BLOOD ORDERABLES [facility] [address] [place], [place] [address] [phone] documented in this encounter Visit Diagnoses Diagnosis Chronic heart failure with preserved ejection fraction (CMS/HCC)- Primary Encounter for adjustment or management of cardiac device documented in this encounter Discontinued Medications Medication Sig Discontinue Reason Start Date End Da te furosemide (LASIX) 20 mg tablet Take 1 tablet (20 mg total) by mouth 1 (one) time each day. Reorder 05/31/2024 documented as of this encounter Care Teams New Accounts Representative Relationship Specialty Start Date End Date Eveline Boyd MD [address] [place] [address] PCP - General 03/20/22 documented as of this encounter
--- OUTSIDE RECORDS SUMMARY | 2024-06-21 12:25 | XMS_ITS | Encounter Summary ---
Author Organization [facility] Address [address] [place] [address] Care Team Providers Care Wine Fermenter Name Role Phone Eveline Boyd MD Primary Care Provider [phone] Reason for Visit * Reason Onset Date Comments Appointment 06/07/2024 Sleep Study Encounter Details Date Type Department Care Team ([facility] st Contact Info) Description 06/07/2024 Telephone [facility] - [facility] [address] [phone] Mariia Pérez NP 300 [facility] 154 [place] [phone] Appointment (Sleep Study) Social History Tobacco Use Types Packs/Day Years [...] as of this encounter Progress Notes * Neema Monahan - 06/07/2024 11:01 AM EST Order, demos and ov note have been faxed to [facility], to schedule pt for a sleep study. They will contact the pt to set up this appointment. Letter mailed documented in this encounter Plan of Treatment Upcoming Encounters Date Type Department Care Team (Late st Contact Info) Description 07/26/2024 9:45 AM EDT Office Visit [facility]olgy - [place] 175 [facility] 200 [place] [phone] Brian Rivera MD 175 [facility] 200 [place] [address] 09/28/2024 9:00 AM EDT Office Visit [facility] Hematology Oncology 271 [place] [phone] Peña Barragan MD 271 [place] [phone] 11/09/2024 9:30 AM EDT Ancillary Procedure [facility] - [facility] 154 300 [facility] 154 [place] [phone] documented as of this encounter Visit Diagnoses Not on filedocumented in this encounter Care Teams Wine Fermenter Relationship Specialty Start Date End Date Eveline Boyd MD [address] [place] [address] PCP - General 03/20/22 documented as of this encounter
--- OUTSIDE RECORDS SUMMARY | 2024-06-21 12:25 | XMS_ITS | Encounter Summary ---
Author Organization [facility] Address [address] [place] [address] Care Team Providers Care Cloth Mercerizing Supervisor Name Role Phone Eveline Boyd MD Primary Care Provider [phone] Encounter Details Date Type Department Care Team (Late st Contact Info) Description 02/23/2024 9:15 AM EDT Hospital Encounter TH HISTORIC ENCOUNTERS EASTERN CONVERSION ONLY Peña Barragan MD [address] [place] [phone] Social History Tobacco Use Types Packs/Day Years [...] pacing thresholds. IMPRESSION: Normal device function. YUMI ROSA-Lily Feb 23, 2024 10:28 documented in this encounter Plan of Treatment Upcoming Encounters Date Type Department Care Team (Late st Contact Info) Description 07/26/2024 9:45 AM EDT Office Visit Pul[facility]olgy - [place] [address] [phone] Brian Rivera MD 175 [facility] 200 [place] [address] 09/28/2024 9:00 AM EDT Office Visit [facility] Hematology Oncology [address] [place] [phone] Peña Barragan MD 271 [place] [phone] 11/09/2024 9:30 AM EDT Ancillary Procedure [facility] - [facility] 154 300 [facility] 154 [place] [phone] documented as of this encounter Visit Diagnoses Not on filedocumented in this encounter Care Teams Cloth Mercerizing Supervisor Relationship Specialty Start Date End Date Eveline Boyd MD [address] [place] [address] PCP - General 03/20/22 documented as of this encounter
--- OUTSIDE RECORDS SUMMARY | 2024-06-21 12:25 | XMS_ITS | Clinical Summary ---
Author Organization [facility] Address [address] [place] [address] Phone Care Team Providers Care Insurance Administrator Name Role Phone Eveline Boyd MD Primary Care Provider [phone] Allergies Active Allergy Reactions Criticality Noted Date Comments Hydrochlorothiazide 07/16/2023 Nsaids (Non-Steroidal Anti-I nflammatory Drug) 05/01/2017 Medications Medication Sig Dispensed Refills Start Date End Date Status albuterol HFA (PROAIR HFA ; PROVENTIL HFA ; VENTOLIN HFA) 90 mcg/actuation inhaler Inhale 2 puffs by mouth every 6 hours as needed for wheezing or shortness of breath. 02/10/2022 Active amLODIPine (NORVASC) 10 mg tablet Take by mouth 1 (one) time each day. Active amLODIPine (NORVASC) 5 mg tablet Take 1 tablet (5 mg total) by mouth 1 (one) time each day. Active carvediloL (COREG) 3.125 mg tablet Take 1 tablet (3.125 mg total) by mouth 2 (two) times a day with meals. 10/22/2022 Active ezetimibe (ZETIA) 10 mg tablet Take 1 tablet (10 mg total) by mouth 1 (one) time each day. 07/21/2019 Active finasteride (PROSCAR) 5 mg tablet Take 1 tablet (5 mg total) by mouth 1 (one) time each day. Active montelukast (SINGULAIR) 10 mg tablet Take 1 tablet (10 mg total) by mouth at bedtime. Active omeprazole (PriLOSEC) [address] capsule Take 1 capsule (20 mg total) by mouth 1 (one) time each day. Active valsartan (DIOVAN) 160 mg tablet Take 1 tablet (160 mg total) by mouth 1 (one) time each day. Active Farxiga 10 mg tablet Take 1 tablet (10 mg total) by mouth 1 (one) time each day. 04/17/2024 Active latanoprost (XALATAN) 0.005 % ophthalmic solution Administer 1 drop into the right eye at bedtime. 04/06/2024 Active rosuvastatin (CRESTOR) 40 mg tablet Take 1 tablet (40 mg total) by mouth 1 (one) time each day. Active fluticasone furoate (Arnuity Ellipta) 200 mcg/actuation blister with device inhaler Inhale 1 puff by mouth 1 (one) time each day. 1 each 4 05/30/2024 6 Active Additional Information Patient not taking.Reported on 06/08/2024 furosemide (LASIX) 20 mg tablet Take 1 tablet (20 mg total) by mouth 1 (one) time each day. 90 tablet 1 05/31/2024 Active apixaban (ELIQUIS) 5 mg tablet Take 1 tablet (5 mg total) by mouth 2 (two) times a day. 180 tablet 3 06/09/2024 Active ipratropium (ATROVENT) 21 mcg (0.03 %) nasal sprayIndications:M ild intermittent asthma, uncomplicated,Coug h, unspecified SPRAY 2 SPRAYS BY NASAL ROUTE 3 TIMES DAILY NEEDED FOR RHINITIS FOR UP TO 30 DAYS. 16 mL 2 06/13/2024 6 Active apixaban (ELIQUIS) 2.5 mg tablet Take 2 tablets (5 mg total) by mouth 2 (two) times a day. Take 1 tablet (2.5 mg total) by mouth every 12 (twelve) hours. - Oral 5 Discontinue d(Duplicate order) fluticasone propionate (FLONASE) 50 mcg/actuation nasal spray Administer 2 sprays into affected nostril(s) 1 (one) time each day. 01/09/2023 5 Discontinue d(Prescribe r Discontinue d) furosemide (LASIX) 20 mg tablet Take 1 tablet (20 mg total) by mouth 1 (one) time each day. 5 Discontinue d(Reorder) methylPREDNISolone (MEDROL) 4 mg tablet follow package directions 02/10/2022 5 Discontinue d(Prescribe r Discontinue d) predniSONE (DELTASONE) 5 mg tablet Take 1 tablet (5 mg total) by mouth 2 (two) times a day. 04/29/2023 5 Discontinue d(Prescribe r Discontinue d) rosuvastatin (CRESTOR) 10 mg tablet Take 1 tablet (10 mg total) by mouth 1 (one) time each day. 5 Discontinue d(Duplicate order) tadalafiL (CIALIS) 5 mg tablet Take 1 tablet (5 mg total) by mouth 1 (one) time each day if needed for erectile dysfunction. 5 Discontinue d(Prescribe r Discontinue d) tamsulosin (FLOMAX) 0.4 mg 24 hr capsule Take 1 capsule (0.4 mg total) by mouth 1 (one) time each day. 5 Discontinue d(Prescribe r Discontinue d) testosterone cypionate (DEPO-TESTOTERONE) 200 mg/mL injection 02/26/2017 5 Discontinue d(Prescribe r Discontinue d) valsartan (DIOVAN) 320 mg tablet 02/26/2017 5 Discontinue d(Prescribe r Discontinue d) abiraterone (ZYTIGA) 250 mg Take 1 tablet (250 mg total) by mouth 1 (one) time each day 5 Discontinue d(Prescribe r Discontinue d) umeclidinium brm/vilanterol tr (ANORO ELLIPTA INHL) 5 Discontinue d(Prescribe r Discontinue d) predniSONE (DELTASONE) 2.5 mg tablet TAKE 1 TABLET BY MOUTH TWICE A DAY 60 tablet 5 03/28/2024 5 Discontinue d(Prescribe r Discontinue d) apixaban (ELIQUIS) 5 mg tablet Take 1 tablet (5 mg total) by mouth 2 (two) times a day. 5 Discontinue d(Reorder) Active Problems Problem Noted Date Diagnosed Date Paroxysmal atrial fibrillation 03/24/2024 Overview (03/24/2024): Paroxysmal atrial fibrillation detected by permanent pacemaker. Asymptomatic due to complete heart block. He was on Eliquis previously for DVT and the dose was increased to 5 mg twice daily. Assessment & Plan (03/24/2024 1:59 PM EST): New onset paroxysmal atrial fibrillation. Fortunately he has complete heart block which is led to adequate rate control and he is essentially asymptomatic. He admits to excessive alcohol intake and is going to try and cut back to see if that is a trigger. He is comfortable taking the full dose Eliquis for stroke prevention and I spent quite some time with him discussing the cause of stroke with atrial fibrillation and the potential benefits of anticoagulation as well as left atrial appendage closure. We talked about catheter ablation, antiarrhythmic agents or continue with with rate control alone and we will follow the overall A-fib burden using his pacemaker over the next 3 to 6 months to decide if additional treatments are necessary. In the interim, he will try and lose some weight and curb the alcohol intake. Chronic heart failure with preserved ejection fr action 03/24/2024 Overview (03/24/2024): HFpEF with lower extremity edema requiring furosemide. No active or severe heart failure symptoms. Might be a combination of venous insufficiency, obesity and diastolic dysfunction. Assessment & Plan (03/24/2024 2:00 PM EST): Diastolic heart failure with stable lower extremity edema controlled with standard dose of Lasix. Encouraged low-sodium diet, leg elevation and efforts at weight loss. Mixed hyperlipidemia 03/24/2024 Overview (03/24/2024): Hyperlipidemia on both Crestor and Zetia. No underlying coronary disease. Assessment & Plan (03/24/2024 2:02 PM EST): Currently on dual lipid-lowering medicine. I encouraged improved diet and weight loss. 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 Knee joint stiffness, bilateral 05/01/2017 Encounters Date Type Department Care Team Description 06/21/2024 11:00 AM EST Ancillary Procedure [facility] - [facility] [address] [place] [phone] Arrived 06/21/2024 Telephone [facility] - [facility] [address] [facility] [address] [place] [phone] Heather Leon PA 06/09/2024 Telephone [facility] [address] [facility] [address] [place] [phone] Sobeida Maier MA Med Refill (Incoming fax [facility] Eliquis 5mg bid /) 06/08/2024 9:45 AM EST Office Visit [facility] Hematology Oncology [address] [place] [phone] Peña Barragan MD Prostate cancer ([facility]) (Primary Dx) 06/07/2024 Telephone [facility] [address] [facility] [address] [place] [phone] Mariia Pérez, EUGENE Appointment (Sleep Study) 05/31/2024 Telephone [facility] [address] [facility] [address] [place] [phone] Mariia Pérez, CLAIM SERVICE REPRESENTATIVE fluid in lungs 05/30/2024 11:43 AM EST - 05/30/2024 11:59 PM EST Hospital Encounter [facility] Xray [address] [place] [phone] Chronic obstructive pulmonary disease, unspecified COPD type ([facility]/HCC) Discharge Disposition: Home or Self Care 05/30/2024 10:15 AM EST Office Visit [facility] - [place] [address] [facility] [address] [place] [phone] Brian Rivera MD Chronic obstructive pulmonary disease, unspecified COPD type (CMS/HCC) (Primary Dx); Dyspnea, unspecified type; Congestive heart failure, unspecified HF chronicity, unspecified heart failure type (CMS/HCC) 05/30/2024 [facility]phone [facility] [address] [facility] [address] [place] [phone] Brian Rivera MD Results (/) 05/30/2024 Telephone [facility] [address] [facility] [address] [place] [phone] Brian Rivera MD 05/24/2024 9:40 AM EST Office Visit [facility] - [facility] [address] [facility] [address] [place] [address] Mariia Pérez NP Paroxysmal atrial fibrillation (CMS/HCC) (Primary Dx); Snoring 04/07/2024 Telephone [facility] Hematology Oncology [address] [place] [address] Peña Barragan MD 03/24/2024 1:00 PM EST Office Visit [facility] - [facility] [address] [facility] [address] [place] [address] Bebeto Pastor MD Atrial fibrillation, unspecified type (CMS/HCC) (Primary Dx); Paroxysmal atrial fibrillation (CMS/HCC); Chronic heart failure with preserved ejection fraction (CMS/HCC); Mixed hyperlipidemia 03/23/2024 9:30 AM EST Office Visit [facility] Hematology Oncology [address] [place] [address] Peña Barragan MD Prostate cancer (CMS/HCC) (Primary Dx) from Last 3 Months Surgical History Surgery Date Site/Laterality Comments JOINT REPLACEMENT PROCEDURE:JOINT REPLACEMENT CARDIAC PACEMAKER PLACEMENT PROCEDURE:CARDIAC PACEMAKER PLACEMENT HERNIA REPAIR PROCEDURE:HERNIA REPAIR COLONOSCOPY PROCEDURE:COLONOSCOPY VARICOSE VEIN SURGERY PROCEDURE:VARICOSE VEIN SURGERY Medical History Medical History Date Comments High cholesterol DX:High cholest gerry Hypertension DX:Hypertension Prostate cancer (CMS/HCC) DX:Pro state cancer (HCC) DVT (deep venous thrombosis) (CMS/HCC) DX:DVT (deep venous thrombosis) (HCC);COMMENT:R LEG 12/2018 Family History Medical History Relation Name Comments pacemaker Brother Heart attack Father Diabetes Mother Hypertension Mother Relation Name Status Comments Brother Father Mother Social History Tobacco Use Types [...] file Not on file Not on file Obstetrics History Last Filed Vital Signs Vital Sign Reading Time Taken Comments Blood Pressure 131/58 06/08/2024 9:35 AM EST Pulse 71 05/30/2024 10:36 AM EST Temperature 36.6 ??C (97.9 ??F) 06/08/2024 9:35 AM ES T Respiratory Rate 20 05/30/2024 10:36 AM EST Oxygen Saturation 99% 06/08/2024 9:35 AM EST Inhaled Oxygen Concentration - - Weight 104 kg (230 lb) 06/08/2024 9:35 AM EST Height 172.7 cm (5' 8 ) 05/30/2024 10:36 AM EST Body Mass Index 34.97 05/30/2024 10:36 AM EST Plan of Treatment Upcoming Encounters Date Type Department Care Team (Late st Contact Info) Description 07/26/2024 9:45 AM EDT Office Visit [facility] [address] [phone] Brian Rivera MD [address] [address] 09/28/2024 9:00 AM EDT Office Visit [facility] Hematology Oncology [address] [place] [phone] Peña Barragan MD [address] [place] [phone] 11/09/2024 9:30 AM EDT Ancillary Procedure [facility] - [address] [facility] [address] [place] [address] Health Maintenance Due Date Last Done Comments DTaP,Tdap,and Td Vaccines (1 - Tdap) 1969 RSV Immunization Patients 60+ Years Old (1 - Risk 60-74 years 1-dose series) 2010 Abdominal Aortic Aneurysm (AAA) Screen 04/26/2022 Cholesterol Screening (Lipid Panel) 04/26/2022 Colorectal Cancer Screening: Colonoscopy 04/26/2022 Depression Screening 04/26/2022 Falls Risk Assessment 04/26/2022 Hepatitis C Screening 04/26/2022 Social Influencers of Health Screening 04/26/2022 Medicare Annual Wellness Visit 09/27/2023 09/26/2022 Hypertension/CHF/CAD Annual BMP Blood Test 06/08/2025 06/08/2024, 06/02/2024, 03/21/2024 Zoster Vaccines Completed 03/23/2019, 06/01/2018 Pneumococcal Vaccine: 65+ Years Completed 03/27/2019, 12/01/2017 Hepatitis A Vaccines Aged Out 02/23/2023 No long er eligible based on patient's age to complete this topic Influenza Vaccine Completed 01/10/2024, , 03/03/2022, Additional history exists COVID-19 Vaccine Completed 02/09/2024, 05/2022, 02/05/2022, Additional history exists HIB Vaccines Aged Out No longer eligi ble based on patient's age to complete this topic HPV Vaccines Aged Out No longer eligi ble based on patient's age to complete this topic Hepatitis B Vaccines Aged Out No long er eligible based on patient's age to complete this topic IPV Vaccines Aged Out No longer eligi ble based on patient's age to complete this topic MMR Vaccines Aged Out No longer eligi ble based on patient's age to complete this topic Meningococcal ACWY Vaccine Aged Out N o longer eligible based on patient's age to complete this topic RSV Immunization Patients Under 20 months Aged Out No longer eligible based on patient's age to complete this topic Varicella Vaccines Aged Out No longer eligible based on patient's age to complete this topic Medical Devices Implanted Type Area Robotics Software Engineer Device Identifier Shelf Expiration Date Model / Serial / Lot Biot-Manu Edora 8 -T [id number] Implanted:07/17 (Quantity not on file) Cardiac Pacemaker [employer] EDORA 8 ANAHY / [id number] / Procedures Procedure Name Priority Date/Time Associated Diagnosis Comments CARDIAC DEVICE CHECK- REMOTE- MURJ Routine 06/21/2024 10:58 AM EST CBC WITH AUTO DIFFERENTIAL Routine 06/08/2024 10:47 AM EST Prostate cancer (CMS/HCC) PROSTATE SPECIFIC ANTIGEN DIAGNOSTIC Routine 06/08/2024 10:47 AM EST Prostate cancer (CMS/HCC) CBC AND DIFFERENTIAL Routine 06/08/2024 10:47 AM EST Prostate cancer (CMS/HCC) COMPREHENSIVE METABOLIC PANEL Routine 06/08/2024 10:47 AM EST Prostate cancer (CMS/HCC) TESTOSTERONE, TOTAL Routine 06/08/2024 1 0:47 AM EST Prostate cancer (CMS/HCC) B-TYPE NATRIURETIC PEPTIDE Routine 06/02/2024 4:00 PM EST Chronic heart failure with preserved ejection fraction (CMS/HCC) BASIC METABOLIC PANEL Routine 06/02/2024 4:00 PM EST Chronic heart failure with preserved ejection fraction (CMS/HCC) XR CHEST 2 VIEWS Routine 05/30/2024 11:5 4 AM EST Chronic obstructive pulmonary disease, unspecified COPD type (CMS/HCC) CBC WITH AUTO DIFFERENTIAL Routine 05/30/2024 11:21 AM EST Chronic obstructive pulmonary disease, unspecified COPD type (CMS/HCC) B-TYPE NATRIURETIC PEPTIDE Routine 05/30/2024 11:21 AM EST Dyspnea, unspecified type CBC AND DIFFERENTIAL Routine 05/30/2024 11:21 AM EST Chronic obstructive pulmonary disease, unspecified COPD type (CMS/HCC) ECG 12-LEAD Routine 05/24/2024 10:26 AM EST Paroxysmal atrial fibrillation (CMS/HCC) ECG 12-LEAD Routine 03/24/2024 2:04 PM EST Atrial fibrillation, unspecified type (CMS/HCC) HISTORICAL IMAGING SCAN RESULT 03/23/2024 CBC WITH AUTO DIFFERENTIAL Routine 03/21/2024 2:34 PM EST Prostate cancer (CMS/HCC) TESTOSTERONE, TOTAL Routine 03/21/2024 2 :34 PM EST Prostate cancer (CMS/HCC) PROSTATE SPECIFIC ANTIGEN DIAGNOSTIC Routine 03/21/2024 2:34 PM EST Prostate cancer (CMS/HCC) CBC AND DIFFERENTIAL Routine 03/21/2024 2:34 PM EST Prostate cancer (CMS/HCC) COMPREHENSIVE METABOLIC PANEL Routine 03/21/2024 2:34 PM EST Prostate cancer (CMS/HCC) from Last 3 Months Results * Cardiac device check - Remote- MURJ (06/21/2024 10:58 AM EST) Date Time Interrogation Session [id number] CV DEVICE CHECK Type Interrogation Session Remote CV DEVICE CHECK Implantable Pulse Generator Robotics Software Engineer BIO CV DEVICE CHECK Implantable Pulse Generator Type IPG CV DEVICE CHECK Implantable Pulse Generator Model Edora 8 DR-T CV DEVICE CHECK Implantable Pulse Generator Serial Number [id number] CV DEVICE CHECK Implantable Pulse Generator Implant Date [id number] CV DEVICE CHECK Battery Remaining Percentage 50.00 CV DEVICE CHECK Battery Status Middle of Service CV DEVICE CHECK Victoriano Statistic RA Percent Paced 0.00 CV DEVICE CHECK Victoriano Statistic RV Percent Paced 100.00 CV DEVICE CHECK Atrial Tachy Statistic AT/AF [place] Percent 5.00 CV DEVICE CHECK Lead Channel [...] Impressions 06/21/2024 10:57 AM EST Increased AF [place] * Device diagnostics indicate increased AT/AF burden since last check * Current AT/AF [place]: 98% over the last 24 hours, 5% over device lifetime. * Prior AT/AF [place]: 0% * Overall rate controlled * Longest episode: 12 hours 24 minutes. * Patient is on Eliquis per [employer] Narrative Procedure Note Heather Leon PA - 06/21/2024 IMPRESSION: Increased AF [place] * Device diagnostics indicate increased AT/AF burden since last check * Current AT/AF [place]: 98% over the last 24 hours, 5% over devicelifetime. * Prior AT/AF [place]: 0% * Overall rate controlled * Longest episode: 12 hours 24 minutes. * Patient is on Eliquis per [employer] Heather MOLINA CV IMPLANTABLE CARDI AC DEVICE PROCEDURES * Prostate specific antigen diagnostic (06/08/2024 10:47 AM EST) Only the most recent of2 resultswithin the time period is included. PSA <0.06 0.00 - 4.00 ng/mL LAB CHEMISTRY METHOD 06/08/2024 12:23 PM EST [facility] Blood Venous blood specimen / Unknown Venipuncture / Unknown 06/08/2024 10:47 AM EST 06/08/2024 11:35 AM EST [facility] - 06/08/2024 12:23 PM EST The Siemens Advia Centaur Chemiluminescent Immunoassay is used. Results obtained with different assay methods or kits cannot be used interchangeably. Results cannot be interpreted as absolute evidence of the presence or absence of malignant disease. Peña Barragan MD LAB BLOOD ORDERABLES [facility] [address] [place] [address], * (ABNORMAL) CBC auto differential (06/08/2024 10:47 AM EST) Only the most recent of3 resultswithin the time period is included. WBC 4.6(L) 4.8 - 10.8 K/mcL LAB HEMETOLOGY METHOD 06/08/2024 11:58 AM [facility] RBC 3.80(L) 4.50 - 5.50 M/mcL LAB HEMETOLOGY METHOD 06/08/2024 11:58 AM [facility] Hemoglobin 13.2(L) 13.5 - 17.5 g/dL LAB HEMETOLOGY METHOD 06/08/2024 11:58 AM [facility] Hematocrit 39.5(L) 42.0 - 54.0 % LAB HEMETOLOGY METHOD 06/08/2024 11:58 AM [facility] MCV 102.9(H) 79.0 - 98.0 FL LAB HEMETOLOGY METHOD 06/08/2024 11:58 AM [facility] MCH 34.4(H) 27.0 - 32.0 pcg LAB HEMETOLOGY METHOD 06/08/2024 11:58 AM [facility] MCHC 33.4 32.0 - 37.0 g/dL LAB HEMETOLOGY METHOD 06/08/2024 11:58 AM [facility] RDW 13.0 11.0 - 15.0 % LAB HEMETOLOGY METHOD 06/08/2024 11:58 AM [facility] Platelets 182 130 - 400 K/mcL LAB HEMETOLOGY METHOD 06/08/2024 11:58 AM [facility] MPV 9.8 7.0 - 11.0 FL LAB HEMETOLOGY METHOD 06/08/2024 11:58 AM [facility] NRBC 0.0 <1.0 % LAB HEMETOLOGY METHOD 06/08/2024 11:58 AM [facility] NRBC Absolute 0.00 <0.10 K/mcL LAB HEMETOLOGY METHOD 06/08/2024 11:58 AM [facility] Neutrophils Relative 66.0 % LAB HEMETOLOGY METHOD 06/08/2024 11:58 AM [facility] Lymphocytes Relative 15.8 % LAB HEMETOLOGY METHOD 06/08/2024 11:58 AM [facility] Monocytes Relative 11.7 % LAB HEMETOLOGY METHOD 06/08/2024 11:58 AM [facility] Eosinophils Relative 4.8 % LAB HEMETOLOGY METHOD 06/08/2024 11:58 AM [facility] Basophils Relative 1.5 % LAB HEMETOLOGY METHOD 06/08/2024 11:58 AM [facility] Immature Granulocytes Relative 0.2 % LAB HEMETOLOGY METHOD 06/08/2024 11:58 AM [facility] Neutrophils Absolute 3.05 1.50 - 7.00 K/mcL LAB HEMETOLOGY METHOD 06/08/2024 11:58 AM [facility] Lymphocytes Absolute 0.73(L) 1.00 - 5.00 K/mcL LAB HEMETOLOGY METHOD 06/08/2024 11:58 AM [facility] Monocytes Absolute 0.54 0.20 - 1.00 K/mcL LAB HEMETOLOGY METHOD 06/08/2024 11:58 AM EST [facility] Eosinophils Absolute 0.22 0.00 - 0.50 K/[facility] LAB HEMETOLOGY METHOD 06/08/2024 11:58 AM EST [facility] Basophils Absolute 0.07 0.00 - 0.20 K/mcL LAB HEMETOLOGY METHOD 06/08/2024 11:58 AM EST [facility] Immature Granulocytes Absolute 0.01 0.00 - 0.03 K/[facility] LAB HEMETOLOGY METHOD 06/08/2024 11:58 AM EST [facility] Blood Venous blood specimen / Unknown Venipuncture / Unknown 06/08/2024 10:47 AM EST 06/08/2024 11:36 AM EST Peña Barragan MD LAB BLOOD ORDERABLES Performing Organization Address City/[facility]/ZIP Co de Phone Number [facility] [address] [place] [address], [place] [phone] * (ABNORMAL) Testosterone, total (06/08/2024 10:47 AM EST) Only the most recent of2 resultswithin the time period is included. Pathologist [facility] Testosterone <7(L) 229 - 902 ng/dL LAB CHEMISTRY METHOD 06/08/2024 12:15 PM [facility] Blood Venous blood specimen / Unknown Venipuncture / Unknown 06/08/2024 10:47 AM EST 06/08/2024 11:35 AM EST Peña Barragan MD LAB BLOOD ORDERABLES [facility] [address] [place] [address], [place] [phone] * Comprehensive metabolic panel (06/08/2024 10:47 AM EST) Only the most recent of2 resultswithin the time period is included. Sodium 137 133 - 145 mmol/L LAB CHEMISTRY METHOD 06/08/2024 12:08 PM [facility] Potassium 4.0 3.5 - 5.5 mmol/L LAB CHEMISTRY METHOD 06/08/2024 12:08 PM [facility] Chloride 103 96 - 110 mmol/L LAB CHEMISTRY METHOD 06/08/2024 12:08 PM [facility] CO2 29 21 - 32 mmol/L LAB CHEMISTRY METHOD 06/08/2024 12:08 PM [facility] Anion Gap 5 3 - 11 LAB CHEMISTRY METHOD 06/08/2024 12:08 PM [facility] Glucose 100 70 - 100 mg/dL LAB CHEMISTRY METHOD 06/08/2024 12:08 PM [facility] BUN 12 5 - 25 mg/dL LAB CHEMISTRY METHOD 06/08/2024 12:08 PM [facility] Creatinine 0.84 0.70 - 1.30 mg/dL LAB CHEMISTRY METHOD 06/08/2024 12:08 PM [facility] eGFR 92 >=60 mL/min/1. 73m2 LAB CHEMISTRY METHOD 06/08/2024 12:08 PM [facility] Comment:Calculation based on the??Chronic Kidney Disease Epidemiology Collaboration (CKD-EPI) equation refit??without adjustment for race. BUN/Creatinine Ratio 14.3 LAB CHEMISTRY METHOD 06/08/2024 12:08 PM [facility] Calcium 9.4 8.5 - 10.5 mg/dL LAB CHEMISTRY METHOD 06/08/2024 12:08 PM [facility] AST (SGOT) 35 10 - 42 unit/L LAB CHEMISTRY METHOD 06/08/2024 12:08 PM [facility] ALT (SGPT) 38 10 - 60 unit/L LAB CHEMISTRY METHOD 06/08/2024 12:08 PM [facility] Alkaline Phosphatase 86 42 - 121 unit/L LAB CHEMISTRY METHOD 06/08/2024 12:08 PM EST [facility] Total Protein 7.1 6.0 - 8.0 g/dL LAB CHEMISTRY METHOD 06/08/2024 12:08 PM [facility] Albumin 4.0 3.2 - 5.0 g/dL LAB CHEMISTRY METHOD 06/08/2024 12:08 PM [facility] Total Bilirubin 0.6 0.0 - 1.4 mg/dL LAB CHEMISTRY METHOD 06/08/2024 12:08 PM [facility] Blood Venous blood specimen / Unknown Venipuncture / Unknown 06/08/2024 10:47 AM EST 06/08/2024 11:35 AM EST Peña Barragan MD LAB BLOOD ORDERABLES Performing Organization Address [facility]/ZIP Co de Phone Number [facility] [address] [place] [address], [place] [phone] * (ABNORMAL) B-type natriuretic peptide (06/02/2024 4:00 PM EST) Only the most recent of2 resultswithin the time period is included. BNP 225(H) <=100 pcg/mL LAB CHEMISTRY METHOD 06/02/2024 7:23 PM [facility] Blood Venous blood specimen / Unknown Venipuncture / Unknown 06/02/2024 4:00 PM EST 06/02/2024 4:00 PM EST Mariia Pérez NP LAB BLOOD ORDERABLES [facility] [address] [place] [address], [place] [phone] * Basic metabolic panel (06/02/2024 4:00 PM EST) Sodium 133 133 - 145 mmol/L LAB CHEMISTRY METHOD 06/02/2024 9:41 PM EST [facility] Potassium 3.8 3.5 - 5.5 mmol/L LAB CHEMISTRY METHOD 06/02/2024 9:41 PM [facility] Chloride 99 96 - 110 mmol/L LAB CHEMISTRY METHOD 06/02/2024 9:41 PM [facility] CO2 27 21 - 32 mmol/L LAB CHEMISTRY METHOD 06/02/2024 9:41 PM [facility] Anion Gap 7 3 - 11 LAB CHEMISTRY METHOD 06/02/2024 9:41 PM [facility] Glucose 80 70 - 100 mg/dL LAB CHEMISTRY METHOD 06/02/2024 9:41 PM [facility] BUN 11 5 - 25 mg/dL LAB CHEMISTRY METHOD 06/02/2024 9:41 PM [facility] Creatinine 0.82 0.70 - 1.30 mg/dL LAB CHEMISTRY METHOD 06/02/2024 9:41 PM [facility] eGFR 93 >=60 mL/min/1. 73m2 LAB CHEMISTRY METHOD 06/02/2024 9:41 PM [facility] Comment:Calculation based on the??Chronic Kidney Disease Epidemiology Collaboration (CKD-EPI) equation refit??without adjustment for race. BUN/Creatinine Ratio 13.4 LAB CHEMISTRY METHOD 06/02/2024 9:41 PM [facility] Calcium 8.5 8.5 - 10.5 mg/dL LAB CHEMISTRY METHOD 06/02/2024 9:41 PM [facility] Blood Venous blood specimen / Unknown Venipuncture / Unknown 06/02/2024 4:00 PM EST 06/02/2024 4:00 PM EST Mariia Pérez NP LAB BLOOD ORDERABLES [facility] [address] [place] [address], * XR Chest 2 Views (05/30/2024 11:54 [...] Signed Date: 06/01/2024 09:17 ET Workstation ID: [id number] Transcribed By: Self Edit Transcribed Date: 06/01/2024 [...] Signed Date: 06/01/2024 09:17 ET Workstation ID: [id number] Transcribed By: Self Edit Transcribed Date: 06/01/2024 09:15 ET Brian Rivera MD IMG XR PROCEDURES * ECG 12 lead (05/24/2024 10:26 AM EST) Only the most recent of2 resultswithin the time period is included. Ventricular Rate ECG 75 BPM GEMUSE Atrial Rate 75 BPM GEMUSE P-R Interval 152 ms GEMUSE QRS Duration 142 ms GEMUSE Q-T Interval 508 ms GEMUSE QTc 567 ms GEMUSE P Wave [place] 36 degrees GEMUSE R [place] 55 degrees GEMUSE T York -123 degrees GEMUSE ECG Interpretation Atrial-sense d ventricular- paced rhythm Abnormal ECG When compared with ECG of 24-MAR-2024 13:03, Vent. rate has decreased BY ?? 5 BPM Confirmed by Raul PASTOR, BEBETO ([id number]) on 05/30/2024 9:53:50 PM GEMUSE 05/24/2024 9:35 AM EST 05/30/2024 9:53 PM EST Mariia Pérez NP ECG ORDERABLES [facility] * HISTORICAL IMAGING SCAN RESULT (03/23/2024) Anatomical Region Laterality Modality Ultrasound Provider Onbase IMG US PROCEDURES from Last 3 Months Care Teams Insurance Administrator Relationship Specialty Start Date End Date Eveline Boyd MD [address] [place] [address] PCP - General 03/20/22
--- OUTSIDE RECORDS SUMMARY | 2024-06-21 12:25 | XMS_ITS | Encounter Summary ---
Author Organization [facility] Address [address] [place] [address] Care Team Providers Care Sponsorship Coordinator Name Role Phone Eveline Boyd MD Primary Care Provider [phone] Reason for Visit * Reason Onset Date Comments Med Refill 06/09/2024 Incoming fax [facility] Eliquis 5mg bid Encounter Details Date Type Department Care Team (Late st Contact Info) Description 06/09/2024 Telephone [facility] - [facility] [address] [facility] [address] [place] [phone] Lissa Maier MA Med Refill (Incoming fax [facility] Eliquis 5mg bid /) Social History Tobacco Use Types Packs/Day Years [...] Dispensed Refills Start Date End Da te apixaban (ELIQUIS) 5 mg tablet Take 1 tablet (5 mg total) by mouth 2 (two) times a day. 180 tablet 3 06/09/2024 documented in this encounter Progress Notes * Lissa Maier MA - 06/09/2024 12:52 PM ESTAddended by: LISSA MAIER on: 06/09/2024 12:52 PM Modules accepted: Orders * Lissa Maier MA - 06/09/2024 12:50 PM EST Last offc vist May 2024 with Wendie Pérez [employer] Incoming fax from [facility] for Eliquis ; renewed. Labs documented in this encounter Plan of Treatment Upcoming Encounters Date Type Department Care Team (Late st Contact Info) Description 07/26/2024 9:45 AM EDT [facility] [address] [place] [phone] Brian Rivera MD [address] [facility] [address] [place] [address] 09/28/2024 9:00 AM EDT Office Visit [facility] Hematology Oncology [address] [place] [phone] Peña Barragan MD [address] [place] [phone] 11/09/2024 9:30 AM EDT Ancillary Procedure [facility] - [facility] [address] [facility] [address] [place] [phone] documented as of this encounter Visit Diagnoses Not on filedocumented in this encounter Discontinued Medications Medication Sig Discontinue Reason Start Date End Da te apixaban (ELIQUIS) 5 mg tablet Take 1 tablet (5 mg total) by mouth 2 (two) times a day. Reorder 06/09/2024 documented as of this encounter Care Teams Sponsorship Coordinator Relationship Specialty Start Date End Date Eveline Boyd MD [address] [place] [address] PCP - General 03/20/22 documented as of this encounter
--- OUTSIDE RECORDS SUMMARY | 2024-06-21 12:25 | XMS_ITS | Encounter Summary ---
Author Organization [facility] Address [address] [place] [address] Care Team Providers Care Casino Gaming Inspector Name Role Phone Eveline Boyd MD Primary Care Provider [phone] Reason for Visit * Reason Comments Follow-up Encounter Details Date Type Department Care Team ([facility] st Contact Info) Description 06/08/2024 9:45 AM EST Office Visit [facility] Hematology Oncology [address] [place] [phone] Peña Barragan MD [address] [place] [phone] Prostate cancer (CMS/HCC) (Primary Dx) Social History Tobacco Use Types Packs/Day Years [...] Pressure 131/58 06/08/2024 9:35 AM EST Pulse - - Temperature 36.6 ??C (97.9 ??F) 06/08/2024 9:35 AM ES T Respiratory Rate - - Oxygen Saturation 99% 06/08/2024 9:35 AM EST Inhaled Oxygen Concentration - - Weight 104 kg (230 lb) 06/08/2024 9:35 AM EST Height - - Body Mass Index 34.97 05/30/2024 10:36 AM EST documented in this encounter Progress Notes * Peña Barragan MD - 06/08/2024 9:45 AM EST CHIEF COMPLAINT: Follow-up IDENTIFIER:Phani Navas is a 73 y.o. male. HPI: Carcinoma the prostate detected with rising PSA 02/05, 3.7; 11/06, 8.1. Patient referred to urology for biopsy. As of 12/31/2021 [place] 4+5, tumor confined right base lateral 70%, right base medial 100% right mid lateral 90%. Cores +5/12. Periprostatic fat involvement present seminal vesicle involvement not identified perineural invasion present LVI indeterminate. T3a by MRI 03/09/22 possible seminal vesicle invasion. Based on above findings patient has been started on therapy initially with bicalutamide subsequently with Lupron. He has been referred to radiation therapy with that visit pending. Prior to diagnosispatient had had some difficulties of BPH with bladder outlet obstruction as well as some erectile dysfunction felt to be due to arterial insufficiency. Radiographic assessment to date has included CTscan of abdomen and pelvis prostate glands felt to be normal with no evidence of pelvic mass or adenopathy there were multiple bilateral renal cysts 7.5 x 2.2 cm. There was an indeterminate lesion inthe upper pole of the right kidney further evaluation ultrasound to be considered slight right lower lobe pulmonary nodularity appreciated consider follow-up CT scan chest. Bone scan obtained no evidence of metastatic disease. Status post Eligard injection anticipate 6 months discussed issues regarding abiraterone patient now on finasteride. Tolerating therapy. RT to be initiated over the course of next week. Overall doing reasonably well with regard to treatment of Eligard. 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 Laboratory data from urology pending. Obtaining GnRH from urology. Remains on abiraterone and prednisone. Genetic testing demonstrating NTHL1 to be further discussed with extended family Overall patient doing well no ongoing acute complaints from a respiratory standpoint primary difficulty is related to generalized sensation of a bloating feeling. Abdominal distention. Not associatedwith pain change in bowel habits. He has had some improvement with the discontinuation of abiraterone and prednisone In general patient is doing well he has no acute complaints of pain no respiratory compromise. He has had Intentional weight loss now returning to exercise program Overall doing reasonably well. PSA 0.3. Discussed the issue of persistent elevation of PSA and role of further evaluation regarding possible Sipuleucel-T, evaluation with RT. Of note CT scan demonstrating sclerotic lesion right anterior sixth rib this does correspond to area of prior trauma. Full review with radiology regarding this lesion as well as pleural-based lesion nonspecific findings of the right inguinal region by no means conclusive regarding further disease. No ongoing complaints. Functional status is excellent. Radiographic studies demonstrate concern forrecurrence near base of prostate on right as well as evidence of T3 vertebral body lesion consistent with metastasis. SUV of this lesion on PSMA was 22.6. Repeat of laboratory data from 05/12/2023 PSA decreased to 0.2 Full report of MRI pending Limited review did not show anticipated T weighted enhancement. Patient continues to have no symptomatic difficulties here. Have discussed with radiation therapy. May need further evaluation for stereotactic therapy. Patient discontinued abiraterone/prednisone. He had significant difficulties with fluid retention. He has had prior cardiac workup which was unremarkable. No ongoing acute complaints some degree of difficulty fatigue and general spirits are quite good. Radiographic studies reviewed in detail of note PET scan from 04/2023 demonstrates lesion at T3. RT completed at [facility] T3 Generally tolerating therapy abiraterone now at 750 mg a day with prednisone 0.5 twice a day. Patient having difficulties of cough nonproductive no blood. No further symptomatic difficulties respiratory nature. Cough is quite persistent. Did have trial therapy of Flonase. Remote history of tobacco use. None for some 30 years Doing well no ongoing complaints tolerating therapy. Following up at [facility]. Reviewed radiographic study sclerotic lesion at T3. Hemangioma at T10. Hepatic cyst stable. Pulmonary nodule decreased No ongoing acute complaints difficulties of pain. Now off of therapy of abiraterone as well as prednisone. Following up with cardiology. He has no further follow-up planned at [facility]. ncology History Overview Note miM1 prostate cancer (M0 by [facility]) Dec 2021 - diagnosed with [place] 4+5=9 cT3 prostate cancer with PSA 8, and no mets on CT/BS. Started ADT and added abiraterone Apr 2022; completed RT to prostate/pelvis in early 2022; Apr 2022 - PSA2.1; September 2022 - PSA 1.3 - off abiraterone for ~3mths in summer 2022 due to edema; Mar 2023 - PSA 0.47; Apr 2023 - PSMA-PET with uptake at prostate and at T3, MRI with lesion at T3, held Marielle due to edema; Jun 2023 - PSA 0.2; August 2023 - completed SBRT to T3; Mar 2024 - PSA 0.06, MRI spine with stable T3 lesion, MRI prostate with stable post- treatment change in pelvis/prostate and no residual mass From [facility] PSA monitoring every 3-6 months and use a rise in PSA to >2 ([place] criteria) or a rapid doubling to prompt further evaluation by PET. We also discussed timeframe of testosterone recovery, which may take up to 2 years at least. I estimated that there may be up to a 50% chance of recurrence in the future, though data from [facility] suggest 85% 5-yr MFS (by [facility]) from start of therapy for a high-risk M0 patient as himself. PAST MEDICAL HISTORY: Past Medical History: Diagnosis Date DVT (deep venous thrombosis) (CMS/HCC) DX:DVT (deep venous thrombosis) (HCC);COMMENT:R LEG 12/2018 High cholesterol DX:High cholesterol Hypertension DX:Hypertension Prostate cancer (CMS/HCC) DX:Prostate cancer (HCC) Past Surgical History: Procedure Laterality Date CARDIAC PACEMAKER PLACEMENT PROCEDURE:CARDIAC PACEMAKER PLACEMENT COLONOSCOPY PROCEDURE:COLONOSCOPY HERNIA REPAIR PROCEDURE:HERNIA REPAIR JOINT REPLACEMENT PROCEDURE:JOINT REPLACEMENT VARICOSE VEIN SURGERY PROCEDURE:VARICOSE VEIN SURGERY SOCIAL HISTORY: Social History Tobacco Use Smoking status: Former Smokeless tobacco: Never Substance Use Topics Alcohol use: Yes FAMILY HISTORY: Family History Problem Relation Name Age of Onset Diabetes Mother Hypertension Mother Heart attack Father Other (pacemaker) Brother Family Status Relation Name Status Mother Father Brother (Not Specified) No partnership data on file Current Outpatient Medications: albuterol HFA (PROAIR HFA ; PROVENTIL HFA ; VENTOLIN HFA) 90 mcg/actuation inhaler, Inhale 2 puffs by mouth every 6 hours as needed for wheezing or shortness of breath., Disp: , Rfl: amLODIPine (NORVASC) 10 mg tablet, Take by mouth 1 (one) time each day., Disp: , Rfl: apixaban (ELIQUIS) 5 mg tablet, Take 1 tablet (5 mg total) by mouth 2 (two) times a day., Disp: , Rfl: carvediloL (COREG) 3.125 mg tablet, Take 1 tablet (3.125 mg total) by mouth 2 (two) times a day with meals., Disp: , Rfl: ezetimibe (ZETIA) 10 mg tablet, Take 1 tablet (10 mg total) by mouth 1 (one) time each day., Disp: , Rfl: Farxiga 10 mg tablet, Take 1 tablet (10 mg total) by mouth 1 (one) time each day., Disp: , Rfl: finasteride (PROSCAR) 5 mg tablet, Take 1 tablet (5 mg total) by mouth 1 (one) time each day., Disp: , Rfl: furosemide (LASIX) 20 mg tablet, Take 1 tablet (20 mg total) by mouth 1 (one) time each day., Disp:90 tablet, Rfl: 1 latanoprost (XALATAN) 0.005 % ophthalmic solution, Administer 1 drop into the right eye at bedtime., Disp: , Rfl: montelukast (SINGULAIR) 10 mg tablet, Take 1 tablet (10 mg total) by mouth at bedtime., Disp: , Rfl: omeprazole (PriLOSEC) [address] capsule, Take 1 capsule (20 mg total) by mouth 1 (one) time each day., Disp: , Rfl: rosuvastatin (CRESTOR) 40 mg tablet, Take 1 tablet (40 mg total) by mouth 1 (one) time each day., Disp: , Rfl: valsartan (DIOVAN) 160 mg tablet, Take 1 tablet (160 mg total) by mouth 1 (one) time each day., Disp: , Rfl: amLODIPine (NORVASC) 5 mg tablet, Take 1 tablet (5 mg total) by mouth 1 (one) time each day. (Patient not taking: Reported on 05/30/2024), Disp: , Rfl: fluticasone furoate (Arnuity Ellipta) 200 mcg/actuation blister with device inhaler, Inhale 1 puff by mouth 1 (one) time each day. (Patient not taking: Reported on 06/08/2024), Disp: 1 each, Rfl: 4 Allergies Allergen Reactions Hydrochlorothiazide Nsaids (Non-Steroidal Anti-Inflammatory Drug) ROS: GENERAL: No malaise, significant weight loss or fever NECK: No lumps, goiter, pain or significant neck swelling RESPIRATORY: No cough, wheezing or shortness of breath CARDIOVASCULAR: No chest pain, leg swelling or palpitations GI: No abdominal discomfort, blood in stools or black stools MUSCULOSKELETAL: No joint pain or swelling, back pain, or muscle pain. HEMATOLOGY/LYMPHOLOGY No prolonged bleeding, easy bruisability or swollen nodes Other Systems review is non contributory PHYSICAL EXAM: Visit Vitals BP 131/58 (BP Location: Right arm, Patient Position: Sitting) Temp 36.6 ??C (97.9 ??F) Wt 104 kg (230 lb) SpO2 99% BMI 34.97 kg/m?? Smoking Status Former BSA 2.17 m?? @PAINSCOREFLOW@ APPEARANCE: Alert and in no acute distress EYES: PERRL, conjunctiva pink and sclera are Normal without icterus NECK: Neck supple, no adenopathy HEART: RRR with normal S1 and S2, no murmurs, no gallops, no JVD appreciated LUNG: clear to auscultation bilaterally LYMPH NODES: No palpable superficial adenopathy EXTREMITIES: Extremities warm and well perfused without clubbing, cyanosis, rash or edema NEURO: Oriented X 3, no focal weakness; sensation is normal IMPRESSION: 1. Prostate cancer (CMS/HCC) PLAN: Problem List Items Addressed This Visit Prostate cancer (CMS/HCC) - Primary Relevant Orders CBC and differential (Completed) Comprehensive metabolic panel Testosterone, total (Completed) Follow-up evaluation CBC CMP PSA testosterone. Now off of therapy some improvement. Anticipate subsequent follow-up bone scan possible MRI spine. Functional status quite good. Follow-up germline testing. Check of vitamin D and bone scan Peña Barragan MD documented in this encounter Plan of Treatment Upcoming Encounters Date Type Department Care Team (Late st Contact Info) Description 07/26/2024 9:45 AM EDT Office Visit Pulmonolgy - [place] [address] [facility] [address] [place] [phone] Brian Rivera MD 175 [facility] [address] [place], [place] [phone] 09/28/2024 9:00 AM EDT Office Visit [facility] Hematology Oncology [address] [place] [phone] Peña Barragan MD [address] [place] [address] 11/09/2024 9:30 AM EDT Ancillary Procedure [facility] - [facility] [address] [facility] [address] [place] [address] Scheduled Orders Name Type Priority Associated Diagnoses Orde r Schedule Comprehensive metabolic panel Lab Routine Prostate cancer (CMS/HCC) Every 12 weeks for 99 Occurrences starting 06/08/2024 until 06/08/2025, 1 completed documented as of this encounter Results * (ABNORMAL) Testosterone, total (06/08/2024 10:47 AM EST) Pathologist [facility] Testosterone <7(L) 229 - 902 ng/dL LAB CHEMISTRY METHOD 06/08/2024 12:15 PM EST [facility] Blood Venous blood specimen / Unknown Venipuncture / Unknown 06/08/2024 10:47 AM EST 06/08/2024 11:35 AM EST Peña Barragan MD LAB BLOOD ORDERABLES [facility] [address] [place] [address], * Comprehensive metabolic panel (06/08/2024 10:47 AM EST) [facility] Sodium 137 133 - 145 mmol/L LAB CHEMISTRY METHOD 06/08/2024 12:08 PM EST [facility] Potassium 4.0 3.5 - 5.5 mmol/L LAB CHEMISTRY METHOD 06/08/2024 12:08 PM [facility] Chloride 103 96 - 110 mmol/L LAB CHEMISTRY METHOD 06/08/2024 12:08 PM [facility] CO2 29 21 - 32 mmol/L LAB CHEMISTRY METHOD 06/08/2024 12:08 PM [facility] Anion Gap 5 3 - 11 LAB CHEMISTRY METHOD 06/08/2024 12:08 PM [facility] Glucose 100 70 - 100 mg/dL LAB CHEMISTRY METHOD 06/08/2024 12:08 PM [facility] BUN 12 5 - 25 mg/dL LAB CHEMISTRY METHOD 06/08/2024 12:08 PM [facility] Creatinine 0.84 0.70 - 1.30 mg/dL LAB CHEMISTRY METHOD 06/08/2024 12:08 PM [facility] eGFR 92 >=60 mL/min/1. 73m2 LAB CHEMISTRY METHOD 06/08/2024 12:08 PM [facility] Comment:Calculation based on the??Chronic Kidney Disease Epidemiology Collaboration (CKD-EPI) equation refit??without adjustment for race. BUN/Creatinine Ratio 14.3 LAB CHEMISTRY METHOD 06/08/2024 12:08 PM [facility] Calcium 9.4 8.5 - 10.5 mg/dL LAB CHEMISTRY METHOD 06/08/2024 12:08 PM [facility] AST (SGOT) 35 10 - 42 unit/L LAB CHEMISTRY METHOD 06/08/2024 12:08 PM [facility] ALT (SGPT) 38 10 - 60 unit/L LAB CHEMISTRY METHOD 06/08/2024 12:08 PM [facility] Alkaline Phosphatase 86 42 - 121 unit/L LAB CHEMISTRY METHOD 06/08/2024 12:08 PM [facility] Total Protein 7.1 6.0 - 8.0 g/dL LAB CHEMISTRY METHOD 06/08/2024 12:08 PM [facility] Albumin 4.0 3.2 - 5.0 g/dL LAB CHEMISTRY METHOD 06/08/2024 12:08 PM EST [facility] Total Bilirubin 0.6 0.0 - 1.4 mg/dL LAB CHEMISTRY METHOD 06/08/2024 12:08 PM EST [facility] Blood Venous blood specimen / Unknown Venipuncture / Unknown 06/08/2024 10:47 AM EST 06/08/2024 11:35 AM EST Peña Barragan MD LAB BLOOD ORDERABLES [facility] [address] [place] [address], documented in this encounter Visit Diagnoses Diagnosis Prostate cancer (CMS/HCC)- Primary Malignant neoplasm of prostate Encounter for adjustment or management of cardiac device documented in this encounter Care Teams Casino Gaming Inspector Relationship Specialty Start Date End Date Eveline Boyd MD [address] [place] [address] PCP - General 03/20/22 documented as of this encounter
== END 2024-06-21 13:11 | disposition home or self-care (01) ==
LOC: HO.HUSH 11:28
PROVIDERS: PCP Hospitalist; Visit Provider Urology
DX: N52.01 Erectile dysfunction due to arterial insufficiency (principal); N43.3 Hydrocele, unspecified; C61 Malignant neoplasm of prostate; C79.51 Secondary malignant neoplasm of bone
CPT/HCPCS: 99213

== ENCOUNTER → 2024-06-21 11:28 | Outpatient (BNVA) | payer MEDICARE, OTHER, SELFPAY | PROVIDERS: PCP Hospitalist; Visit Provider Urology ==

== ENCOUNTER 2024-09-15 08:53 | Outpatient (REF) | payer OTHER, SELFPAY ==
--- OUTSIDE RECORDS SUMMARY | 2024-09-15 09:20 | XMS_ITS ---
Author Organization [facility] Address [address] [facility] [address] [place] [address] Care Team Providers Care Deburrer Name Role Phone ANDREY SCHULTZ Primary Care Provider Allergies Allergen (clinical drug ingredient) Drug/Non Drug Allergy documented on EMR Reaction Allergy Type Onset Date Status aspirin Aspirin Unknown Drug Allergy Active Motrin Unknown Drug Allergy Active hydrochlorothiazide Hydrochlorothiazide Unknown Drug Aller gy Active Non-steroidal anti-inflammatory agent (FN) NSAIDs Unknown Drug Allergy Active REASON FOR VISIT 6 month f/u Medications Medication SIG (Take, Route, Frequency, Duration) Notes Start Date End Date Status Ipratropium Morley 0.03 % 2 sprays in each nostril Nasally Twice a day Active Latanoprost-Timolol Maleate 0.005-0.5 % 1 drop into affected eye Ophthalmic Once a day Active Lasix 20 MG 1 tablet Orally Once a day Active Fluconazole 10 MG/ML as directed Orally Not-Taking Penciclovir 1 % APPLY 1 APPLICATION EXTERNALLY EVERY 2 HOURS FOR 4 DAYS for 30 Not-Taki ng Valsartan 160 MG TAKE 1 TABLET ONCE DAILY for 90 Active Tamsulosin HCl 0.4 MG 1 capsule Orally O nce a day for 90 days Active Omeprazole 20 MG 1 tablet 30 minutes before morning meal Orally Once a day for 90 days Active Farxiga 10 MG 1 tablet Orally Once a day CARDIO Active Zepbound 2.5 MG/0.5ML 0.5 mL Subcutaneou s weekly for 30 days 07/22/2024 Active Carvedilol 12.5 MG TAKE 1 TABLET 2 TIME S DAILYWITH FOOD for 90 days Active Ezetimibe 10 MG TAKE 1 TABLET ONCE DAILY for 90 Active Rosuvastatin Calcium 40 MG TAKE 1 TABLET ONCE DAILY for 90 Active Eliquis 5 MG 1 tablet Orally twic e a day for 90 days Active Tadalafil 5 MG TAKE 1 TABLET ONCE DAILY FOR BLADDER CANCER for 90 Active Albuterol Sulfate HFA 108 (90 Base) MCG/ACT 2 puff as needed Inhalation every 4 hrs for 90 days Active Anoro Ellipta 62.5-25 MCG/INH 1 puff Inhalation Once a day for 90 days Active Social History Tobacco Use: Social History Observation Description Date Details (start date - stop date) Former Smoker NA - NA Tobacco Use/Smoking Question Answer Notes Are you a former smoker How long has it been since you last smoked? > 10 years Alcohol Screen (Audit-C) Question Answer Notes Did you have a drink contain ing alcohol in the past year? Yes How often did you have a dri nk containing alcohol in the past year? 2 to 3 times a week (3 points) How many drinks did you have on a typical day when you were drinking in the past year? 3 or 4 drinks (1 point) Points 4 Interpretation Positive Vital Signs Temperature 96.4 degrees Fahrenheit 08/16/19 25 Oximetry 98 % 08/15/2024 Heart Rate 82 /min 08/15/2024 Blood pressure systolic 110 mm Hg 08/16/19 25 Blood pressure diastolic 70 mm Hg 025 Weight 227.4 lbs 08/15/2024 BMI 34.57 kg/m2 08/15/2024 Height 5'8'' in 08/15/2024 Encounters Encounter Location Date Provider Diagnosis [facility] [address] [address] 08/15/2024 ANDREY SCHULTZ Other obesity due to excess calories E66.09 and Dietary counseling and surveillance Z71.3 Assessments Encounter Date Diagnosis (ICD Code) Assessment Notes Treatment Notes Treatment Clinical Notes Section Notes 08/15/2024 Other obesity due to excess calories (ICD-10 - E66.09) Phani is 74 years old gentleman with hypertension, hyperlipidemia, history of prostate cancer, venous insufficiency, congestive heart failure, degenerative disc disease, chronic DVT, status post pacemaker is here for medical weight management. He has lost roughly 12 pounds since his last visit. Dietary recommendations. Food recall was done today and patient advised to be on low calorie, low carbohydrate diet. Restrict calories to less than 1500 kcal in 24 hours. Low glycemic index foods and encouraged. Meal replacements were recommended. Advised to use [id number] multivitamins and vitamin D. Advised to use calorie counter and adhere to portion control. Monthly goal is to lose 4-6 pounds Pharmacotherapy. he is not on any medications at this point in time and is waiting for approval from insurance Exercise. Patient encouraged to increase frequency, intensity and duration of exercise. Encouraged to burn at least 250-500 kcal in one session. Also encouraged to do weight training Assess. Different risk factors discussed with the patient and addressed Advise. Patient was given clear And specific advise that she will comply with Low-calorie diet and try not to exceed more than 1300 kcal in 24 hours. Agree. Mutually agreed to work together to achieve appropriate goals Assist. Motivational interviewing done. Arrange. Follow-up appointment arranged. Counseling. 20 minutes spent Face to face with the patient more than 50% of time was spent counseling 08/15/2024 Dietary counseling and surveillance (ICD-10 - Z71.3) Phani is 74 years old gentleman with hypertension, hyperlipidemia, history of prostate cancer, venous insufficiency, congestive heart failure, degenerative disc disease, chronic DVT, status post pacemaker is here for medical weight management. He has lost roughly 12 pounds since his last visit. Dietary recommendations. Food recall was done today and patient advised to be on low calorie, low carbohydrate diet. Restrict calories to less than 1500 kcal in 24 hours. Low glycemic index foods and encouraged. Meal replacements were recommended. Advised to use [id number] multivitamins and vitamin D. Advised to use calorie counter and adhere to portion control. Monthly goal is to lose 4-6 pounds Pharmacotherapy. he is not on any medications at this point in time and is waiting for approval from insurance Exercise. Patient encouraged to increase frequency, intensity and duration of exercise. Encouraged to burn at least 250-500 kcal in one session. Also encouraged to do weight training Assess. Different risk factors discussed with the patient and addressed Advise. Patient was given clear And specific advise that she will comply with Low-calorie diet and try not to exceed more than 1300 kcal in 24 hours. Agree. Mutually agreed to work together to achieve appropriate goals Assist. Motivational interviewing done. Arrange. Follow-up appointment arranged. Counseling. 20 minutes spent Face to face with the patient more than 50% of time was spent counseling Plan Of Treatment Next Appt Details Follow Up: 4 Weeks, Reason: Provider Name:ANDREY SCHULTZ , 09/21/2024 08:30:00 AM, [address] [facility] [address], [place], [address], Progress Notes * BURTONSULTANAN FDOB: [birth year] (74 yo M)Acc No.[id number]:08/15/2024 Progress Notes Patient:?PHANI MANRIQUE Provider:?ANDREY SCHULTZ MD :1950???Age:74 Y???Sex:Male Gilberto e:08/15/2024 Address:[address] [place], [place] [phone] Subjective: * Chief Complaints: * ???6 month f/u * HPI: ???Obesity:?74 year old male presents with c/o Is here for weight management.?Patient has tried weight management in the past? denies.?weight as teenager?185 LBS.?Maximum weight?240 LBS.?Weight gain with ? .?Food recall?BF. Eggs, beacon and bread, oatmeal, beeries, coffee, Lunch- Soup and salad Dinner- Pasta, fish pie.?Diet?inconsistent compliance with low calorie diet.?Exercise?occasionally.?Caffeine?coffee.?Night eating?rarely.?Sleep Pattern? Normal sleep pattern.?emotional eating? denies.?Impulsive eating?Denies.?depression? denies.?anxiety? denies.? currently he is not on any medications and he lost roughly 12 pounds.? He has been doing dietary modifications.? He is exercising regularly physical therapy. * ROS:?General/Constitutional:?Overall health?Good,?.?Change in appetite?denies,?.?Chills?denies,?.?Fever?denies,?.?Night sweats?denies,?.?Sleep disturbance?denies,?.?Weight gain?denies,?.?Weight loss?denies,?.?Neurologic:?Difficulty speaking?denies,.?Dizziness?denies,?.?Gait abnormality?denies,?.?Headache?denies,?.?Loss of strength?denies,?.?Memory loss?denies,?.?Seizures?denies,.?Tingling/Numbness?,?denies.?Ophthalmologic:?Blurred vision?denies,?.?Discharge?denies,?.?Dry eye?denies,?.?Red eye?denies,?.?ENT:?Change in Voice?Denies,?.?Cold Symptoms?Denies,?.?Cough?Denies,?.?Dizziness?Denies,.?Nasal Congestion?Denies,?.?Otalgia?Denies,?.?Nosebleed?denies,?.?Snoring?denies,?.?Cardiovascular:?Diaphoresis?Denies,?.?Pedal Edema?Denies,?.?PND (Paroxsymal nocturnal dyspnea)?Denies,?.?Chest pain?denies,?.?Difficulty laying flat?denies,?.?Dyspnea on exertion?denies,?.?Heart murmur?denies,?.?Orthopnea?denies,?.?Respiratory:?Snoring?denies,.?Asthma?denies,.?Cough?denies,?.?Shortness of breath with exertion?denies,?.?Sputum production?denies.?Wheezing?denies,?.?Gastrointestinal:?Change in bowel habits?denies,.?Constipation?denies,?.?Decreased appetite?denies,?.?Diarrhea?denies,?.?Heartburn?denies,?.?Nausea?denies,?.?Vomit ing?denies,?.?Musculoskeletal:?tingling/numbness?Denies,?.?myalgias?Denies,?.?Joint Swelling?Denies,?.?extremeties??normal, ?.?Arthritis?denies,?.?Back problems?denies,?.?Carpal tunnel?denies.?Joint stiffness?denies,?.?Muscle aches?denies,?.?Endocrine:?Bowel Changes?Denies,?.?Breast Discharge?Denies,?.?poor libido?Denies,?.?Cold intolerance?denies,?.?Excessive sweating?denies,.?Excessive thirst?denies,?.?Frequent urination?denies,?.?Thyroid problems?denies,.?Skin:?Bruising?Denies,?.?Eczema?denies,?.?Hair changes?denies,?.?Rash?denies,?.?Skin lesion(s)?denies,?.?Psychiatric:?Anxiety?denies,?.?Depressed mood?denies,.?Difficulty sleeping?denies,?.?Nervous breakdown?denies,?.?Urology:?abnormal menstrual bleeding?denies,?.?blood in urine?denies.?burning on urination?denies,?.?difficulty urinating?denies,?.?discharge?denies,?.?dysuria?denies,?.? * Medical History:? * Surgical History:?left total knee replacement 1998right total knee replacement 2011pacemaker 07/2019umbilical hernia 2appendectomy * Hospitalization/Major Diagno stic Procedure:? * Family History:?Father: dece ased, diagnosed with Hypertension, Heart Disease.?Siblings: , diagnosed with Diabetes, Heart Disease, Cancer.? brother cirrhosis of the liver brother lung cancer, smoker. * Social History:?Tobacco Use:?Tobacco Use/Smoking?Are you a?former smoker ?How long has it been since you last smoked??> 10 years ???Drugs/Alcohol:?Alcohol Screen (Audit-C)?Did you have a drink containing alcohol in the past year??Yes ?How often did you have a drink containing alcohol in the past year??2 to 3 times a week (3 points) ?How many drinks did you have on a typical day when you were drinking in the past year??3 or 4 drinks (1 point) ?Points?4 ?Interpretation?Positive ???Miscellaneous:?Children: yes, 1, . ?Marital status: . ?Occupation: Retired, works voluntarily at the [employer]. * Medications:?TakingIpratropi um Morley 0.03 % Solution 2 sprays in each nostril Nasally Twice a day Latanoprost-Timolol Maleate 0.005-0.5 % Solution 1 drop into affected eye Ophthalmic Once a day Lasix 20 MG Tablet 1 tablet Orally Once a day Albuterol Sulfate HFA 108 (90 Base) MCG/ACT Aerosol Solution 2 puff as needed Inhalation every 4 hrs Anoro Ellipta 62.5-25 MCG/INH Aerosol Powder Breath Activated 1 puff Inhalation Once a day Eliquis 5 MG Tablet 1 tablet Orally twice a day Tadalafil 5 MG Tablet TAKE 1 TABLET ONCE DAILY FOR BLADDER CANCER Carvedilol 12.5 MG Tablet TAKE 1 TABLET 2 TIMES DAILYWITH FOOD Ezetimibe 10 MG Tablet TAKE 1 TABLET ONCE DAILY Rosuvastatin Calcium 40 MG Tablet TAKE 1 TABLET ONCE DAILY Valsartan 160 MG Tablet TAKE 1 TABLET ONCE DAILY Tamsulosin HCl 0.4 MG Capsule 1 capsule Orally Once a day Omeprazole 20 MG Capsule Delayed Release 1 tablet 30 minutes before morning meal Orally Once a day Farxiga 10 MG Tablet 1 tablet Orally Once a day , Notes to Pharmacist: CARDIOZepbound 2.5 MG/0.5ML Solution 0.5 mL Subcutaneous weekly Taking Ipratropium Morley 0.03 % Solution 2 sprays in each nostril Nasally Twice a day Taking Latanoprost-Timolol Maleate 0.005-0.5 % Solution 1 drop into affected eye Ophthalmic Once a day Taking Lasix 20 MG Tablet 1 tablet Orally Once a day Taking Albuterol Sulfate HFA 108 (90 Base) MCG/ACT Aerosol Solution 2 puff as needed Inhalation every 4 hrs Taking Anoro Ellipta 62.5-25 MCG/INH Aerosol Powder Breath Activated 1 puff Inhalation Once a day Taking Eliquis 5 MG Tablet 1 tablet Orally twice a day Taking Tadalafil 5 MG Tablet TAKE 1 TABLET ONCE DAILY FOR BLADDER CANCER Taking Carvedilol 12.5 MG Tablet TAKE 1 TABLET 2 TIMES DAILYWITH FOOD Taking Ezetimibe 10 MG Tablet TAKE 1 TABLET ONCE DAILY Taking Rosuvastatin Calcium 40 MG Tablet TAKE 1 TABLET ONCE DAILY Taking Valsartan 160 MG Tablet TAKE 1 TABLET ONCE DAILY Taking Tamsulosin HCl 0.4 MG Capsule 1 capsule Orally Once a day Taking Omeprazole 20 MG Capsule Delayed Release 1 tablet 30 minutes before morning meal Orally Once a day Taking Farxiga 10 MG Tablet 1 tablet Orally Once a day , Notes to Pharmacist: CARDIOTaking Zepbound 2.5 MG/0.5ML Solution 0.5 mL Subcutaneous weekly Not-TakingFluconazole 10 MG/ML Suspension Reconstituted as directed Orally Penciclovir 1 % Cream APPLY 1 APPLICATION EXTERNALLY EVERY 2 HOURS FOR 4 DAYS Medication List reviewed and reconciled with the patientNot-Taking Fluconazole 10 MG/ML Suspension Reconstituted as directed Orally Not-Taking Penciclovir 1 % Cream APPLY 1 APPLICATION EXTERNALLY EVERY 2 HOURS FOR 4 DAYS Medication List reviewed and reconciled with the patient * Allergies:?Hydrochlorothiazi deAspirinMotrinNSAIDsno[Allergies Verified] Objective: * Vitals:?Temp:96.4F, Oxygen s at %:98%, HR:82/min, BP:110/70mm Hg, Wt:227.4lbs, BMI:34.57Index, Ht: 5'8''. * Examination: ???General Examination: ?Psychiatry?Normal.?GENERAL APPEARANCE:?well developed, well nourished, in no acute distress.?HEAD:?normocephalic, atraumatic.?EYES:?pupils equal, round, reactive to light and accommodation, sclera non-icteric.?EARS:?normal.?ORAL CAVITY:?mucosa moist.?THROAT:?clear.?OROPHARYNX?Normal.?SINUSES?Normal.?NECK/THYROID:?neck supple, full range of motion, no cervical lymphadenopathy.?SKIN:?warm and dry, no suspicious lesions.?HEART:?regular rate and rhythm, S1, S2 normal, 2/6 systolic NIRANJAN.?LUNGS:?clear to auscultation bilaterally.?ABDOMEN:?soft, nontender, nondistended, bowel sounds present, normal.?EXTREMITIES:?normal.?PERIPHERAL PULSES:?normal.?NEUROLOGIC:?nonfocal,? appropriate?motor strength normal upper and lower extremities, sensory exam intact.?PODIATRIC:?NORMAL?,?BILATERALLY.? Assessment: * Assessment: 1.?Other obesity due to exce ss calories - E66.09 (Primary)???2.?Dietary counseling and surveillance - Z71.3??? Phani is 74 years old gentlem an with hypertension, hyperlipidemia, history of prostate cancer, venous insufficiency, congestive heart failure, degenerative disc disease, chronic DVT, status post pacemaker is here for medical weight management.? He has lost roughly 12 pounds since his last visit. Dietary recommendations. Food recall was done today and patient advised to be on low calorie, low carbohydrate diet. Restrict calories to less than 1500 kcal in 24 hours. Low glycemic index foods and encouraged. Meal replacements were recommended. Advised to use [id number] multivitamins and vitamin D. Advised to use calorie counter and adhere to portion control. Monthly goal is to lose 4-6 pounds Pharmacotherapy. he is not on any medications at this point in time and is waiting for approval from insurance Exercise. Patient encouraged to increase frequency, intensity and duration of exercise. Encouraged to burn at least 250-500 kcal in one session. Also encouraged to do weight training Assess. Different risk factors discussed with the patient and addressed Advise. Patient was given clear And specific advise that she will comply with Low-calorie diet and try not to exceed more than 1300 kcal in 24 hours. Agree. Mutually agreed to work together to achieve appropriate goals Assist. Motivational interviewing done. Arrange. Follow-up appointment arranged. Counseling. 20 minutes spent Face to face with the patient more than 50% of time was spent counseling Plan: * Treatment: * Procedure Codes:? * Follow Up:?4 Weeks * Images: * Sign off status: Completed true * Provider:?ANDREY SCHULTZ MD Date:?08/15 Generated for Mandi saavedra/Vic/Maryannsmitting on:?09/15/2024 09:20 AM EDT History and Physical Notes * HPI (History of Present Illness) Category Sub-Category Detail Notes Category Not es Obesity Diet inconsistent compliance with low calorie diet currently he is not on any medications and he lost roughly 12 pounds. He has been doing dietary modifications. He is exercising regularly physical therapy. Exercise occasionally Caffeine coffee weight as teenager 185 LBS Maximum weight 240 LBS Weight gain with Is here for weight management Patient has tried weight man agement in the past denies Food recall BF. Eggs, beacon and bread, oatmeal, beeries, coffee, Lunch- Soup and salad Dinner- Pasta, fish pie Night eating rarely Sleep Pattern Normal sleep pattern emotional eating denies Impulsive eating Denies depression denies anxiety denies Examination Category Sub-Category Detail Notes Category Not es General Examination GENERAL APPEARANCE: well dev eloped, well nourished, in no acute distress HEAD: normocephalic, atrau matic EYES: pupils equal, round, reactive to light and accommodation, sclera non-icteric EARS: normal THROAT: clear NECK/THYROID: neck supple, full ra nge of motion, no cervical lymphadenopathy HEART: regular rate and rhy thm, S1, S2 normal, 2/6 systolic NIRANJAN LUNGS: clear to auscultatio n bilaterally ABDOMEN: soft, nontender, non distended, bowel sounds present, normal NEUROLOGIC: nonfocal, appropriat e motor strength normal upper and lower extremities, sensory exam intact SKIN: warm and dry, no catalino picious lesions EXTREMITIES: normal PERIPHERAL PULSES: normal ORAL CAVITY: mucosa moist PODIATRIC: NORMAL , BILATERALLY Psychiatry Normal OROPHARYNX Normal SINUSES Normal
--- OUTSIDE RECORDS SUMMARY | 2024-09-15 09:20 | XMS_ITS ---
Author Organization [facility] Address [address] [address] Care Team Providers Care Industrial Illuminating Engineer Name Role Phone ANDREY SCHULTZ Primary Care Provider REASON FOR VISIT Appointment Encounters Encounter Location Date Provider Diagnosis [facility] [address] [address] 08/22/2024 ANDREY SCHULTZ Plan Of Treatment Next Appt Details Provider Name:ANDREY SCHULTZ , 09/21/2024 08:30:00 AM, [address] [place] [address] [address], [place], [address], Progress Notes * XIN MANRIQUE FDOB: [birth year] (74 yo M)Acc No.[id number]:08/22/2024 Patient:?XIN MANRIQUE :1950???Age:74 Y???Sex:Male Address:[address] [place] [phone] * true * Date:? Generated for Printi keri/Fajessicag/eTransmitting on:?09/15/2024 09:20 AM EDT
--- OUTSIDE RECORDS SUMMARY | 2024-09-15 09:20 | XMS_ITS | Clinical Summary ---
Author Organization [facility] Address [address] [place] [address] Care Team Providers Care Manager Inventory Control Name Role Phone Eveline Boyd MD Primary Care Provider [phone] Allergies Active Allergy Reactions Criticality Noted Date [...] day with meals. 0 Active Abiraterone Acetate ([facility] [id number] abiraterone 250MG tablet) 250 MG TABS Take [...] left subclavian vein 12/25/2022 Overview: Angioplasty 05/2020-[facility] Knee joint stiffness, bilateral 05/01/2017 Family History Medical History Relation Name Comments [...] age to complete this topic Care Teams Manager Inventory Control Relationship Specialty Start Date End Date Eveline Boyd MD [address] [place] [address] PCP - General Internal Medicine 03/20/22
--- OUTSIDE RECORDS SUMMARY | 2024-09-15 09:21 | XMS_ITS ---
Author Organization [facility] Address [address] [address] Care Team Providers Care Radar Mechanic Name Role Phone ANDREY SCHULTZ Primary Care Provider REASON FOR VISIT Zepbound 2.5 mg PA Encounters Encounter Location Date Provider Diagnosis [facility] [address] [facility] [address] [place] [address] 09/08/2024 ANDREY SCHULTZ Plan Of Treatment Next Appt Details Provider Name:ANDREY SCHULTZ , 09/21/2024 08:30:00 AM, [address] [facility] [address], [place], [address], Progress Notes * XIN MANRIQUE FDOB: [birth year] (74 yo M)Acc No.[id number]:09/08/2024 Patient:?XIN MANRIQUE :1950???Age:74 Y???Sex:Male Address:[address] [place] [phone] * * Date:?
--- OUTSIDE RECORDS SUMMARY | 2024-09-15 09:21 | XMS_ITS | Encounter Summary ---
Author Organization [employer] Address [address] [place] [address] Care Team Providers Care Milk Tester Name Role Phone Eveline Boyd MD Primary Care Provider [phone] Encounter Details Date Type Department Care Team (Late st Contact Info) Description 03/15/2024 8:20 AM EDT Hospital Encounter TH HISTORIC ENCOUNTERS EASTERN CONVERSION ONLY Peña Barragan MD [address] [place] [phone] Social History Tobacco Use Types Packs/Day Years [...] Orientation Straight 05/30/2024 11 :41 AM EST documented as of this encounter Procedure Notes [...] Care Team (Late st Contact Info) Description 09/28/2024 9:00 AM EDT Office Visit [facility] Hematology Oncology [address] [place] [phone] Peña Barragan MD [address] [place] [phone] 11/09/2024 9:30 AM EDT Ancillary Procedure [facility] Cardiology [facility] [address] [place] [address] 01/10/2025 8:00 AM EDT Ancillary Procedure [facility] Cardiology [facility] [address] [place] [address] 02/01/2025 8:40 AM EDT Office Visit [facility] [address] [place] [address] Mariia Pérez NP [address] [place] [address] 07/26/2025 9:45 AM EDT Office Visit Pulmonolgy - [place] [address] [facility] [address] [place] [phone] Brian Rivera MD [address] [facility] [address] [place] [address] documented as of this encounter Goals Goal Patient Goal Type Associated Problems Recent Progress Patient-Stated? Author PT LTGs General No Leonidas Keys PT Note: Pt will report no pain with lumbar AROM testing - met Pt will transfer quadruped to/from standing independent with no back pain reported to return to gardening - met Pt will be independent with HEP - met documented as of this encounter Visit Diagnoses Not on filedocumented in this encounter Care Teams Milk Tester Relationship Specialty Start Date End Date Eveline Boyd MD [address] [place] [phone] PCP - General 03/20/22 documented as of this encounter
--- OUTSIDE RECORDS SUMMARY | 2024-09-15 09:21 | XMS_ITS | Clinical Summary ---
Author Organization [facility] Address [address] [place] [address] Phone Care Team Providers Care Seafood Process Worker Name Role Phone Eveline Boyd MD Primary Care Provider [phone] Allergies Active Allergy Reactions Criticality Noted Date Comments Hydrochlorothiazide 07/16/2023 Nsaids (Non-Steroidal Anti-I nflammatory Drug) 05/01/2017 Medications albuterol HFA (PROAIR HFA ; PROVENTIL HFA ; VENTOLIN HFA) 90 mcg/actuation inhaler Inhale 2 puffs by mouth every 6 hours as needed for wheezing or shortness of breath. 02/11/20 22 Active carvediloL (COREG) 3.125 mg tablet Take 1 tablet (3.125 mg total) by mouth 2 (two) times a day with meals. 10/23/19 23 Active ezetimibe (ZETIA) 10 mg tablet Take 1 tablet (10 mg total) by mouth 1 (one) time each day. 07/21/19 20 Active omeprazole (PriLOSEC) [address] capsule Take 1 capsule (20 mg total) by mouth 1 (one) time each day. Active valsartan (DIOVAN) 160 mg tablet Take 1 tablet (160 mg total) by mouth 1 (one) time each day. Active latanoprost (XALATAN) 0.005 % ophthalmic solution Administer 1 drop into the right eye at bedtime. 04/06/20 24 Active rosuvastatin (CRESTOR) 40 mg tablet Take 1 tablet (40 mg total) by mouth 1 (one) time each day. Active apixaban (ELIQUIS) 5 mg tablet Take 1 tablet (5 mg total) by mouth 2 (two) times a day. 180 tablet 3 06/24/19 25 Active tadalafiL (CIALIS) 5 mg tablet Take 1 tablet (5 mg total) by mouth 1 (one) time each day. Active tamsulosin (FLOMAX) 0.4 mg 24 hr capsule Take 1 capsule (0.4 mg total) by mouth 1 (one) time each day with breakfast. Capsules should be taken 30 minutes following the same meal each day. Active latanoprost (XALATAN) 0.005 % ophthalmic solution 1 drop at bedtime. Active ipratropium (ATROVENT) 21 mcg (0.03 %) nasal sprayIndication s:Mild intermittent asthma, uncomplicated,C ough, unspecified SPRAY 2 SPRAYS BY NASAL ROUTE 3 TIMES DAILY NEEDED FOR RHINITIS FOR UP TO 30 DAYS. 16 mL 1 08/20/19 25 026 Active dapagliflozin propanediol (Farxiga) 10 mg tablet Take 1 tablet (10 mg total) by mouth 1 (one) time each day. 90 tablet 3 08/31/19 25 Active furosemide (LASIX) 20 mg tablet Take 1 tablet (20 mg total) by mouth 1 (one) time each day. 90 tablet 3 08/31/19 25 Active furosemide (LASIX) 20 mg tablet Take 1 tablet (20 mg total) by mouth 1 (one) time each day. 90 tablet 1 05/31/19 25 025 Discontinued(R eorder) ipratropium (ATROVENT) 21 mcg (0.03 %) nasal sprayIndication s:Mild intermittent asthma, uncomplicated,C ough, unspecified SPRAY 2 SPRAYS BY NASAL ROUTE 3 TIMES DAILY NEEDED FOR RHINITIS FOR UP TO 30 DAYS. 16 mL 2 06/13/19 25 025 Discontinued Farxiga 10 mg tablet TAKE 1 TABLET BY MOUTH EVERY DAY 30 tablet 6 06/27/19 25 025 Discontinued(R eorder) Active Problems Problem Noted Date Diagnosed Date Paroxysmal atrial fibrillation ([facility] V24, CMS /HCC V28) 03/24/2024 Overview (03/24/2024): Paroxysmal atrial fibrillation detected [...] the alcohol intake. Chronic heart failure with p reserved ejection fraction ([facility] V24, [facility] V28) 03/24/2024 Overview (03/24/2024): HFpEF with lower extremity [...] weight loss. Continue current medications Prostate cancer ([facility] V24, CMS/HCC V28) 06/16 DVT of deep femoral vein, right (CMS/[facility] V24, CM S/HCC V28) 12/25/2022 Stenosis of left subclavian vein 12/25/2022 Overview (07/16/2023): Angioplasty 05/2020-Dr. Sarmiento[facility] Knee joint stiffness, bilateral 05/01/2017 Encounters Date Type Department Care Team Description 09/13/2024 9:30 AM EDT Treatment [address] [address] Leonidas Keys, PT Chronic low back pain without sciatica, unspecified back pain laterality (Primary Dx) 09/06/2024 9:00 AM EDT Treatment [address] [phone] Leonidas Keys, PT Chronic low back pain without sciatica, unspecified back pain laterality (Primary Dx) 09/01/2024 9:00 AM EDT Treatment [address] [phone] Leonidas Keys, PT Chronic low back pain without sciatica, unspecified back pain laterality (Primary Dx) 08/30/2024 Telephone [facility] Cardiology [facility] [address] [phone] Mariia Pérez, IMPACT HAMMER OPERATOR Walk-in (Refill of Farxiga and furosemide) 08/25/2024 9:00 AM EDT Treatment [address] [phone] Leonidas Keys, PT Chronic low back pain without sciatica, unspecified back pain laterality (Primary Dx) 08/23/2024 9:00 AM EDT Treatment [address] [phone] Leonidas Keys, PT Chronic low back pain without sciatica, unspecified back pain laterality (Primary Dx) 08/19/2024 11:15 PM EDT Ancillary Procedure [facility] [address] [place] [address] 08/19/2024 6:45 PM EDT Ancillary Procedure [facility] [address] [place] [address] 08/19/2024 5:35 PM EDT Ancillary Procedure [facility] - [facility] [address] [place] [address] 08/18/2024 9:00 AM EDT Treatment [facility] [address] [phone] Leonidas Keys, PT Chronic low back pain without sciatica, unspecified back pain laterality (Primary Dx) 08/16/2024 11:30 AM EDT Treatment [facility] [address] [phone] Leonidas Keys, PT Chronic low back pain without sciatica, unspecified back pain laterality (Primary Dx) 08/16/2024 10:10 AM EDT Ancillary Procedure [facility] - [address] [place] [address] 08/16/2024 Telephone [facility] - [address] [place] [address] Alida Uribe NP 07/29/2024 9:15 AM EDT Evaluation [facility] [address] [address] Leonidas Keys, PT Bilateral low back pain without sciatica, unspecified chronicity (Primary Dx); Low back pain, unspecified 07/29/2024 Plan of Care Documentation [facility] [address] [address] 07/26/2024 9:45 AM EDT [facility] [address] [place] [phone] Brian Rivera MD Chronic heart failure with preserved ejection fraction ([facility] V24, [facility] V28) (Primary Dx); Mild persistent asthma, unspecified whether complicated 07/26/2024 7:40 AM EDT Office Visit [facility] Cardiology [facility] - [address] [place] [address] Mariia Pérez NP Paroxysmal atrial fibrillation ([facility] V24, [facility] V28) (Primary Dx); SOB (shortness of breath) 06/30/2024 Telephone [facility] - [address] [place] [address] Hank Garg MD 06/30/2024 Telephone [facility] - [address] [place] [address] Hank Garg MD Atrial Fibrillation; Sleep Apnea 06/21/2024 11:00 AM EST Ancillary Procedure [facility] - [address] [place] [address] 06/21/2024 Telephone [facility] - [address] [place] [address] Heather Leon PA from Last 3 Months Surgical History Surgery Date Site/Laterality Comments JOINT REPLACEMENT PROCEDURE:JOINT REPLACEMENT CARDIAC PACEMAKER PLACEMENT PROCEDURE:CARDIAC PACEMAKER PLACEMENT HERNIA REPAIR PROCEDURE:HERNIA REPAIR COLONOSCOPY PROCEDURE:COLONOSCOPY VARICOSE VEIN SURGERY PROCEDURE:VARICOSE VEIN SURGERY Medical History Medical History Date Comments High cholesterol DX:High cholest gerry Hypertension DX:Hypertension Prostate cancer ([facility] V24 , [facility] V28) DX:Prostate cancer (HCC) DVT (deep venous thrombosis) ([facility] V24, [facility] V28) DX:DVT (deep venous thrombos is) ([facility]);COMMENT:R LEG 12/2018 Family History Medical History Relation [...] Orientation Straight 05/30/2024 11 :41 AM EST Obstetrics History Last Filed Vital Signs Vital Sign Reading Time Taken Comments Blood Pressure 123/77 07/26/2024 9:54 AM EDT Pulse 55 07/26/2024 8:01 AM EDT Temperature 36.1 ??C (97 ??F) 07/26/2024 9:54 AM EDT Respiratory Rate 20 05/30/2024 10:36 AM EST Oxygen Saturation 100% 07/26/2024 9:54 AM EDT Inhaled Oxygen Concentration - - Weight 105 kg (232 lb 6.4 oz) 07/26/2024 9:54 AM EDT Height 172.7 cm (5' 8 ) 07/26/2024 8:01 AM EDT Body Mass Index 35.34 07/26/2024 8:01 AM EDT Plan of Treatment Upcoming Encounters Date Type Department Care Team (Late st Contact Info) Description 09/28/2024 9:00 AM EDT Office Visit [facility] Hematology Oncology [address] [place] [address] Peña Barragan MD [address] [place] [address] 11/09/2024 9:30 AM EDT Ancillary Procedure [facility] Cardiology [facility] [address] [place] [address] 01/10/2025 8:00 AM EDT Ancillary Procedure [facility] Cardiology [facility] - [address] [place] [address] 02/01/2025 8:40 AM EDT Office Visit [facility] Cardiology [facility] [address] [place] [address] Lattanzi, Mariia Y, IMPACT HAMMER OPERATOR [address] [place] [phone] 07/26/2025 9:45 AM EDT Office Visit Pul[facility]olgy - [place] [address] [facility] [address] [place] [phone] Brian Rivera MD 175 [facility] 200 [place] [address] Health Maintenance Due Date Last Done Comments RSV Immunization Adult Patients (1 - Risk 60-74 years 1-dose series) 2010 Abdominal Aortic Aneurysm (AAA) Screen 04/26/2022 Cholesterol Screening (Lipid Panel) 04/26/2022 Colorectal Cancer Screening: Colonoscopy 04/26/2022 Depression Screening 04/26/2022 Falls Risk Assessment 04/26/2022 Hepatitis C Screening 04/26/2022 Social Influencers of Health Screening 04/26/2022 Medicare Annual Wellness Visit 09/27/2023 09/26/2022 COVID-19 Vaccine ( season) 2024 02/09/2024, 02/15/2023, 02/05/2022, Additional history exists Hypertension/CHF/CAD Annual BMP Blood Test 08/16/2025 08/16/2024, 06/08/2024, 06/02/2024, Additional history exists DTaP,Tdap,and Td Vaccines (2 - Td or Tdap) 09/02/2034 09/02/2024 Pneumococcal Vaccine: 50+ Years Completed 03/27/2019, 12/01/2017, 12/01/2016 Zoster Vaccines Completed 04/01/2019, 1110/2018, 06/01/2018 Hepatitis A Vaccines Aged Out 02/23/2023 No long er eligible based on patient's age to complete this topic Influenza Vaccine Completed 01/10/2024, , 03/03/2022, Additional history exists HIB Vaccines Aged Out [...] patient's age to complete this topic Meningococcal B Vaccine Aged Out No l onger eligible based on patient's age to complete this topic RSV Immunization Patients Under 20 months Aged Out No longer eligible based on patient's age to complete this topic Varicella Vaccines Aged Out No longer eligible based on patient's age to complete this topic Goals Goal Patient Goal Type Associated Problems Recent Progress Patient-Stated? Author PT LTGs General No Leonidas Keys, PT Note: Pt will report no pain with lumbar AROM testing - met Pt will transfer quadruped to/from standing independent with no back pain reported to return to gardening - met Pt will be independent with HEP - met Medical Devices Implanted Type Area Employee Relations Representative Device Identifier Shelf Expiration Date Model / Serial / Lot Nichole-Easy Pairings Edora 8 Anahy [id number] Implanted:07/17 (Quantity not on file) Cardiac Pacemaker [employer] EDORA 8 ANAHY / [id number] / Procedures Procedure Name Priority Date/Time Associated Diagnosis Comments CARDIAC DEVICE CHECK- REMOTE- MURJ Routine 08/19/2024 11:11 PM EDT CARDIAC DEVICE CHECK- REMOTE- MURJ Routine 08/19/2024 6:41 PM EDT CARDIAC DEVICE CHECK- REMOTE- MURJ Routine 08/19/2024 5:30 PM EDT CBC WITH AUTO DIFFERENTIAL Routine 08/16/2024 2:03 PM EDT Prostate cancer (CMS/HCC V24, CMS/HCC V28) COMPREHENSIVE METABOLIC PANEL Routine 08/16/2024 2:03 PM EDT Prostate cancer (CMS/HCC V24, CMS/HCC V28) TESTOSTERONE, TOTAL Routine 08/16/2024 2 :03 PM EDT Prostate cancer (CMS/HCC V24, CMS/HCC V28) PROSTATE SPECIFIC ANTIGEN DIAGNOSTIC Routine 08/16/2024 2:03 PM EDT Prostate cancer (CMS/HCC V24, CMS/HCC V28) CBC AND DIFFERENTIAL Routine 08/16/2024 2:03 PM EDT Prostate cancer (CMS/HCC V24, CMS/HCC V28) PROSTATE SPECIFIC ANTIGEN SCREEN Routine 08/16/2024 2:02 PM EDT Malignant neoplasm of prostate (CMS/HCC V24, CMS/HCC V28) Encounter for screening for malignant neoplasm of prostate MAGNESIUM Routine 08/16/2024 2:02 PM EDT Paroxysmal atrial fibrillation (CMS/HCC V24, CMS/HCC V28) SOB (shortness of breath) Chronic heart failure with preserved ejection fraction (CMS/HCC V24, CMS/HCC V28) CARDIAC DEVICE CHECK- REMOTE- MURJ Routine 08/16/2024 10:08 AM EDT ECG 12-LEAD Routine 07/26/2024 8:35 AM EDT Paroxysmal atrial fibrillation (CMS/HCC V24, CMS/HCC V28) CARDIAC DEVICE CHECK- REMOTE- MURJ Routine 06/21/2024 10:58 AM EST from Last 3 Months Results * Cardiac device check - Remote- MURJ (08/19/2024 11:11 PM EDT) Only the most recent of5 resultswithin the time period is included. Date Time Interrogation Session [id number] CV DEVICE CHECK Type Interrogation Session RemoteScheduled CV DEVICE CHECK Implantable Pulse Generator Employee Relations Representative BIO CV DEVICE CHECK Implantable Pulse Generator Type IPG CV DEVICE CHECK Implantable Pulse Generator Model Edora 8 DR-T CV DEVICE CHECK Implantable Pulse Generator Serial Number [id number] CV DEVICE CHECK Implantable Pulse Generator Implant Date [id number] CV DEVICE CHECK Battery Remaining Percentage 55.00 CV DEVICE CHECK Battery Status Middle of Service CV DEVICE CHECK Victoriano Statistic RA Percent Paced 1.00 CV DEVICE CHECK Victoriano Statistic RV Percent Paced 100.00 CV DEVICE CHECK Atrial Tachy Statistic AT/AF [place] Percent 0.00 CV DEVICE CHECK Lead Channel Sensing Intrinsic Amplitude 1.900 CV DEVICE CHECK Lead Channel Impedance Value 527 CV DEVICE CHECK Lead Channel Pacing Threshold Amplitude 1.500 CV DEVICE CHECK Lead Channel Pacing Threshold Pulse Width 0.4 CV DEVICE CHECK Lead Channel RA Pacing Threshold Date 2024-01-06 CV DEVICE CHECK Lead Channel Setting Pacing Amplitude 2.500 CV DEVICE CHECK Lead Channel Setting Pacing Pulse Width 0.4 CV DEVICE CHECK Lead Channel Sensing Intrinsic Amplitude 13.900 CV DEVICE CHECK Lead Channel Impedance Value 468 CV DEVICE CHECK Lead Channel Pacing Threshold Amplitude 1.800 CV DEVICE CHECK Lead Channel Pacing Threshold Pulse Width 0.4 CV DEVICE CHECK Lead Channel RV Pacing Threshold Date 2024-01-06 CV DEVICE CHECK Lead Channel Setting Pacing Amplitude 2.300 CV DEVICE CHECK Lead Channel Setting Pacing [...] 110 CV DEVICE CHECK Date of Service 2024-01-16 CV DEVICE CHECK Anatomical Region Laterality Modality Device Interroga tion 01/06/2024 1:52 AM EDT Impressions 01/11/2024 8:27 AM EDT Normal Remote: No Events * Normal Device Function * Alerts or events: None * Battery: Battery is at 55%, * Sensing, impedance and thresholds reviewed * Programmed parameters reviewed * Presenting rhythm reviewed * Heart Rate Histograms reviewed * No significant changes noted Narrative Procedure Note Hank Garg MD - 08/19/2024 IMPRESSION: Normal Remote: No Events * Normal Device Function * Alerts or events: None * Battery: Battery is at 55%, * Sensing, impedance and thresholds reviewed * Programmed parameters reviewed * Presenting rhythm reviewed * Heart Rate Histograms reviewed * No significant changes noted Hank Garg MD CV IMPLANTABLE CARDIAC DEVICE PROCEDURES Final Result * Prostate specific antigen diagnostic (08/16/2024 2:03 PM EDT) PSA <0.06 0.00 - 4.00 ng/mL LAB CHEMISTRY METHOD 08/16/2024 8:45 PM EDT [facility] Blood Venous blood specimen / Unknown Venipuncture / Unknown 08/16/2024 2:03 PM EDT 08/16/2024 3:09 PM EDT Narrative [facility] - 08/16/2024 8:45 PM EDT The Siemens Advia Centaur Chemiluminescent Immunoassay is used. Results obtained with different assay methods or kits cannot be used interchangeably. Results cannot be interpreted as absolute evidence of the presence or absence of malignant disease. us Peña Barragan MD LAB BLOOD ORDERABLES Final Res ult [facility] [address] [place] [address], * (ABNORMAL) CBC auto differential (08/16/2024 2:03 PM EDT) [facility] WBC 4.5(L) 4.8 - 10.8 K/mcL LAB HEMETOLOGY METHOD 08/16/2024 3:20 PM EDT [facility] RBC 3.80(L) 4.50 - 5.50 M/mcL LAB HEMETOLOGY METHOD 08/16/2024 3:20 PM EDT [facility] Hemoglobin 13.2(L) 13.5 - 17.5 g/dL LAB HEMETOLOGY METHOD 08/16/2024 3:20 PM EDT [facility] Hematocrit 38.7(L) 42.0 - 54.0 % LAB HEMETOLOGY METHOD 08/16/2024 3:20 PM EDT [facility] MCV 100.8(H) 79.0 - 98.0 FL LAB HEMETOLOGY METHOD 08/16/2024 3:20 PM EDT [facility] MCH 34.4(H) 27.0 - 32.0 pcg LAB HEMETOLOGY METHOD 08/16/2024 3:20 PM EDT [facility] MCHC 34.1 32.0 - 37.0 g/dL LAB HEMETOLOGY METHOD 08/16/2024 3:20 PM [facility] RDW 13.0 11.0 - 15.0 % LAB HEMETOLOGY METHOD 08/16/2024 3:20 PM [facility] Platelets 124(L) 130 - 400 K/mcL LAB HEMETOLOGY METHOD 08/16/2024 3:20 PM [facility] MPV 10.5 7.0 - 11.0 FL LAB HEMETOLOGY METHOD 08/16/2024 3:20 PM [facility] NRBC 0.0 <1.0 % LAB HEMETOLOGY METHOD 08/16/2024 3:20 PM [facility] NRBC Absolute 0.00 <0.10 K/mcL LAB HEMETOLOGY METHOD 08/16/2024 3:20 PM [facility] Neutrophils Relative 67.3 % LAB HEMETOLOGY METHOD 08/16/2024 3:20 PM [facility] Lymphocytes Relative 17.0 % LAB HEMETOLOGY METHOD 08/16/2024 3:20 PM [facility] Monocytes Relative 11.3 % LAB HEMETOLOGY METHOD 08/16/2024 3:20 PM [facility] Eosinophils Relative 3.5 % LAB HEMETOLOGY METHOD 08/16/2024 3:20 PM [facility] Basophils Relative 0.7 % LAB HEMETOLOGY METHOD 08/16/2024 3:20 PM [facility] Immature Granulocytes Relative 0.2 % LAB HEMETOLOGY METHOD 08/16/2024 3:20 PM [facility] Neutrophils Absolute 3.05 1.50 - 7.00 K/mcL LAB HEMETOLOGY METHOD 08/16/2024 3:20 PM EDT [facility] Lymphocytes Absolute 0.77(L) 1.00 - 5.00 [facility] LAB HEMETOLOGY METHOD 08/16/2024 3:20 PM EDT [facility] Monocytes Absolute 0.51 0.20 - 1.00 K/[facility] HEMETOLOGY METHOD 08/16/2024 3:20 PM EDT [facility] Eosinophils Absolute 0.16 0.00 - 0.50 K/[facility] HEMETOLOGY METHOD 08/16/2024 3:20 PM EDT [facility] Basophils Absolute 0.03 0.00 - 0.20 K/[facility] HEMETOLOGY METHOD 08/16/2024 3:20 PM EDT [facility] Immature Granulocytes Absolute 0.01 0.00 - 0.03 K/[facility] HEMETOLOGY METHOD 08/16/2024 3:20 PM EDT [facility] Blood Venous blood specimen / Unknown Venipuncture / Unknown 08/16/2024 2:03 PM EDT 08/16/2024 3:11 PM EDT us Peña Barragan MD LAB BLOOD ORDERABLES Final Res ult [facility] [address] [place] [address], * (ABNORMAL) Testosterone, total (08/16/2024 2:03 PM EDT) Testosterone <7(L) 229 - 902 ng/dL LAB CHEMISTRY METHOD 08/16/2024 6:45 PM EDT [facility] Blood Venous blood specimen / Unknown Venipuncture / Unknown 08/16/2024 2:03 PM EDT 08/16/2024 3:09 PM EDT us Peña Barragan MD LAB BLOOD ORDERABLES Final Res ult [facility] [address] [place] [address], * Comprehensive metabolic panel (08/16/2024 2:03 PM EDT) Sodium 133 133 - 145 mmol/L LAB CHEMISTRY METHOD 08/16/2024 6:13 PM [facility] Potassium 4.0 3.5 - 5.5 mmol/L LAB CHEMISTRY METHOD 08/16/2024 6:13 PM [facility] Chloride 100 96 - 110 mmol/L LAB CHEMISTRY METHOD 08/16/2024 6:13 PM [facility] CO2 24 21 - 32 mmol/L LAB CHEMISTRY METHOD 08/16/2024 6:13 PM [facility] Anion Gap 9 3 - 11 LAB CHEMISTRY METHOD 08/16/2024 6:13 PM [facility] Glucose 89 70 - 100 mg/dL LAB CHEMISTRY METHOD 08/16/2024 6:13 PM [facility] BUN 17 5 - 25 mg/dL LAB CHEMISTRY METHOD 08/16/2024 6:13 PM [facility] Creatinine 0.89 0.70 - 1.30 mg/dL LAB CHEMISTRY METHOD 08/16/2024 6:13 PM [facility] eGFR 90 >=60 mL/min/1. 73m2 LAB CHEMISTRY METHOD 08/16/2024 6:13 PM [facility] Comment:Calculation based on the??Chronic Kidney Disease Epidemiology Collaboration (CKD-EPI) equation refit??without adjustment for race. BUN/Creatinine Ratio 19.1 LAB CHEMISTRY METHOD 08/16/2024 6:13 PM [facility] Calcium 9.0 8.5 - 10.5 mg/dL LAB CHEMISTRY METHOD 08/16/2024 6:13 PM EDT [facility] AST (SGOT) 38 10 - 42 unit/L LAB CHEMISTRY METHOD 08/16/2024 6:13 PM EDT [facility] ALT (SGPT) 42 10 - 60 unit/L LAB CHEMISTRY METHOD 08/16/2024 6:13 PM EDT [facility] Alkaline Phosphatase 69 42 - 121 unit/L LAB CHEMISTRY METHOD 08/16/2024 6:13 PM EDT [facility] Total Protein 6.8 6.0 - 8.0 g/dL LAB CHEMISTRY METHOD 08/16/2024 6:13 PM EDT [facility] Albumin 3.8 3.2 - 5.0 g/dL LAB CHEMISTRY METHOD 08/16/2024 6:13 PM EDT [facility] Total Bilirubin 0.6 0.0 - 1.4 mg/dL LAB CHEMISTRY METHOD 08/16/2024 6:13 PM EDT [facility] Blood Venous blood specimen / Unknown Venipuncture / Unknown 08/16/2024 2:03 PM EDT 08/16/2024 3:09 PM EDT Peña Barragan MD LAB BLOOD ORDERABLES Final Res ult [facility] [address] [place] [address], * Prostate specific antigen screen (08/16/2024 2:02 PM EDT) PSA <0.06 0.00 - 4.00 ng/mL LAB CHEMISTRY METHOD 08/16/2024 6:45 PM EDT [facility] Blood Venous blood specimen / Unknown Venipuncture / Unknown 08/16/2024 2:02 PM EDT 08/16/2024 3:10 PM EDT Narrative [facility] - 08/16/2024 6:45 PM EDT The Siemens Advia Centaur Chemiluminescent Immunoassay is used. Results obtained with different assay methods or kits cannot be used interchangeably. Results cannot be interpreted as absolute evidence of the presence or absence of malignant disease. Mariia Pérez LAB BLOOD ORDERABLES Final R esult Performing Organization Address [facility] Co de Phone Number [facility] [address] [place] [address], [place] [phone] * Magnesium (08/16/2024 2:02 PM EDT) [facility] Magnesium 2.4 1.9 - 2.6 mg/dL LAB CHEMISTRY METHOD 08/16/2024 6:04 PM EDT [facility] Blood Venous blood specimen / Unknown Venipuncture / Unknown 08/16/2024 2:02 PM EDT 08/16/2024 3:10 PM EDT Mariia Pérez LAB BLOOD ORDERABLES Final R esult Performing Organization Address [facility] de Phone Number [facility] [address] [place] [address], [place] [phone] * ECG 12 lead (07/26/2024 8:35 AM EDT) [facility] Ventricular Rate ECG 55 BPM GEMUSE Atrial Rate 55 BPM GEMUSE P-R Interval 198 ms GEMUSE QRS Duration 118 ms GEMUSE Q-T Interval 514 ms GEMUSE QTc 491 ms GEMUSE P Wave Thomas 12 degrees GEMUSE R Thomas 13 degrees GEMUSE T Thomas 162 degrees GEMUSE ECG Interpretation Atrial-sense d ventricular- paced rhythm When compared with ECG of 24-MAY-2024 09:35, Vent. rate has decreased BY ??20 BPM Confirmed by SOCORRO DUPREE ([id number]) on 08/03/2024 5:30:01 PM GEMUSE 07/26/2024 7:58 AM EDT 08/03/2024 5:30 PM EDT us Mariia Pérez IMPACT HAMMER OPERATOR ECG ORDERABLES Edited Resul t - Final GEMUSE from Last 3 Months Insurance MEDICARE [facility] Care Teams Seafood Process Worker Relationship Specialty Start Date End Date Eveline Boyd MD [address] [place] [id number] PCP - General 03/20/22
--- OUTSIDE RECORDS SUMMARY | 2024-09-15 09:21 | XMS_ITS | Patient Health Record ---
Author Organization [employer] [facility] Address [address] [place] [address] Care Team Providers Care Stand Up Comedian Name Role Phone ANDREY SCHULTZ Primary Care Provider Allergies Allergen (clinical drug ingredient) Drug/Non Drug Allergy documented on EMR Reaction Allergy Type Onset Date Status aspirin Aspirin Unknown Drug Allergy Active Motrin Unknown Drug Allergy Active hydrochlorothiazide Hydrochlorothiazide Unknown Drug Aller gy Active Non-steroidal anti-inflammatory agent (FN) NSAIDs Unknown Drug Allergy Active Results Component Value Reference Range Notes Comp. Metabolic Panel (14)-3 Reviewed date:02/13/2024 04:03:48 PM Interpretation: Performing Lab:[facility], [address] [place] [address], [place], Phone - [phone], Director - Radha Notes/Report: Glucose 94 70-99 mg/dL BUN 12 8-27 mg/dL Creatinine 0.82 0.76-1.27 mg/dL eGFR 93 >59 mL/min/1.73 BUN/Creatinine Ratio 15 10-24 Sodium 136 134-144 mmol/L Potassium 4.5 3.5-5.2 mmol/L Chloride 101 96-106 mmol/L Carbon Dioxide, Total 22 20-29 mmol/L Calcium 9.1 8.6-10.2 mg/dL Protein, Total 6.4 6.0-8.5 g/dL Albumin 4.1 3.8-4.8 g/dL Globulin, Total 2.3 1.5-4.5 g/dL Bilirubin, Total 0.5 0.0-1.2 mg/dL Alkaline Phosphatase 65 44-121 IU/L AST (SGOT) 25 0-40 IU/L ALT (SGPT) 18 0-44 IU/L Lipid Panel-[id number] Reviewed date:02/13/2024 04:03:46 PM Interpretation: Performing Lab:[facility] [place], [address], Phone - [phone], Director - [facility] Notes/Report: Cholesterol, Total 134 100-199 mg/dL Triglycerides 81 0-149 mg/dL HDL Cholesterol 85 >39 mg/dL VLDL Cholesterol Smooth 16 5-40 mg/dL LDL Chol Calc (NIH) 33 0-99 mg/dL Albumin/Creatinine Ratio,Uri ne-[id number] Reviewed date:02/13/2024 04:03:43 PM Interpretation: Performing Lab:[facility] [place], [address] [facility], [place], Phone - [phone], Director - MDJoy Notes/Report: Creatinine, Urine 110.2 Not Estab. mg/dL Albumin, Urine 57.6 Not Estab. ug/mL Alb/Creat Ratio 52 0-29 mg/g creat Normal: 0 - 29 Moderately increased: 30 - 300 Severely increased: >300 Comp. Metabolic Panel (14)-3 Reviewed date:02/13/2024 04:05:28 PM Interpretation: Performing Lab:[facility] [place], [address] [facility] [address], Phone - [phone], Director - MDy Notes/Report: Glucose 91 70-99 mg/dL BUN 12 8-27 mg/dL Creatinine 0.83 0.76-1.27 mg/dL eGFR 92 >59 mL/min/1.73 BUN/Creatinine Ratio 14 10-24 Sodium 135 134-144 mmol/L Potassium 4.5 3.5-5.2 mmol/L Chloride 100 96-106 mmol/L Carbon Dioxide, Total 22 20-29 mmol/L Calcium 8.9 8.6-10.2 mg/dL Protein, Total 6.2 6.0-8.5 g/dL Albumin 4.0 3.8-4.8 g/dL Globulin, Total 2.2 1.5-4.5 g/dL Bilirubin, Total 0.5 0.0-1.2 mg/dL Alkaline Phosphatase 61 44-121 IU/L AST (SGOT) 28 0-40 IU/L ALT (SGPT) 20 0-44 IU/L t-Transglutaminase (tTG) IgG -[id number] Reviewed date:02/13/2024 04:03:54 PM Interpretation: Performing Lab:[facility] [place], [address] [facility] [facility], Phone - [phone], Director - [facility] Notes/Report: t-Transglutaminase (tTG) IgG <2 0-5 U/mL Negative 0 - 5 Weak Positive 6 - 9 Positive >9 CBC With Differential/Platel et-[id number] Reviewed date:02/13/2024 04:05:19 PM Interpretation: Performing Lab:[facility] [place], [address] [facility] [address] [facility], Phone - [phone], [facility]/Report: WBC 3.5 3.4-10.8 x10E3/uL RBC 3.87 4.14-5.80 x10E6/uL Hemoglobin 13.8 13.0-17.7 g/dL Hematocrit 41.1 37.5-51.0 % MCV 106 79-97 fL MCH 35.7 26.6-33.0 pg MCHC 33.6 31.5-35.7 g/dL RDW 12.9 11.6-15.4 % Platelets 127 150-450 x10E3/uL Neutrophils 68 Not Estab. % Lymphs 16 Not Estab. % Monocytes 12 Not Estab. % Eos 3 Not Estab. % Basos 1 Not Estab. % Neutrophils (Absolute) 2.3 1.4-7.0 x10E3/uL Lymphs (Absolute) 0.6 0.7-3.1 x10E3/uL Monocytes(Absolute) 0.4 0.1-0.9 x10E3/uL Eos (Absolute) 0.1 0.0-0.4 x10E3/uL Baso (Absolute) 0.0 0.0-0.2 x10E3/uL Immature Granulocytes 0 Not Estab. % Immature Grans (Abs) 0.0 0.0-0.1 x10E3/uL PROSTATE SPECIFIC ANTIGEN DI AGNOSTIC Reviewed date:06/08/2024 01:28:11 PM Interpretation: Performing Lab: Notes/Report: The Siemens Advia Callaway Digital Artsaur Chemiluminescent Immunoassay is used. Results obtained with different assay methods or kits cannot be used interchangeably. Results cannot be interpreted as absolute evidence of the presence or absence of malignant disease. PSA <0.06 0.00-4.00 ng/mL TESTOSTERONE, TOTAL Reviewed date:06/08/2024 01:25:35 PM Interpretation: Performing Lab: Notes/Report: Testosterone <7 229-902 ng/dL COMPREHENSIVE METABOLIC PANE L Reviewed date:06/08/2024 01:25:48 PM Interpretation: Performing Lab: Notes/Report: Sodium 137 133-145 mmol/L Potassium 4.0 3.5-5.5 mmol/L Chloride 103 96-110 mmol/L CO2 29 21-32 mmol/L Anion Gap 5 3-11 Glucose 100 70-100 mg/dL BUN 12 5-25 mg/dL Creatinine 0.84 0.70-1.30 mg/dL eGFR 92 >=60 mL/min/1.73m2 Calculation based on the Chronic Kidney Disease Epidemiology Collaboration (CKD-EPI) equation refit without adjustment for race. BUN/Creatinine Ratio 14.3 Calcium 9.4 8.5-10.5 mg/dL AST (SGOT) 35 10-42 unit/L ALT (SGPT) 38 10-60 unit/L Alkaline Phosphatase 86 42-121 unit/L Total Protein 7.1 6.0-8.0 g/dL Albumin 4.0 3.2-5.0 g/dL Total Bilirubin 0.6 0.0-1.4 mg/dL CBC WITH AUTO DIFFERENTIAL Reviewed date:06/08/2024 01:25:55 PM Interpretation: Performing Lab: Notes/Report: WBC 4.6 4.8-10.8 K/mcL RBC 3.80 4.50-5.50 M/mcL Hemoglobin 13.2 13.5-17.5 g/dL Hematocrit 39.5 42.0-54.0 % MCV 102.9 79.0-98.0 FL MCH 34.4 27.0-32.0 pcg MCHC 33.4 32.0-37.0 g/dL RDW 13.0 11.0-15.0 % Platelets 182 130-400 K/mcL MPV 9.8 7.0-11.0 FL NRBC 0.0 <1.0 % NRBC Absolute 0.00 <0.10 K/mcL Neutrophils Relative 66.0 Lymphocytes Relative 15.8 Monocytes Relative 11.7 Eosinophils Relative 4.8 Basophils Relative 1.5 Immature Granulocytes Relative 0.2 Neutrophils Absolute 3.05 1.50-7.00 K/mcL Lymphocytes Absolute 0.73 1.00-5.00 K/mcL Monocytes Absolute 0.54 0.20-1.00 K/mcL Eosinophils Absolute 0.22 0.00-0.50 K/mcL Basophils Absolute 0.07 0.00-0.20 K/mcL Immature Granulocytes Absolute 0.01 0.00-0.03 K/mcL B-TYPE NATRIURETIC PEPTIDE Reviewed date:06/03/2024 07:55:51 AM Interpretation: Performing Lab: Notes/Report: BNP 225 <=100 pcg/mL BASIC METABOLIC PANEL Reviewed date:06/03/2024 12:04:23 PM Interpretation: Performing Lab: Notes/Report: Sodium 133 133-145 mmol/L Potassium 3.8 3.5-5.5 mmol/L Chloride 99 96-110 mmol/L CO2 27 21-32 mmol/L Anion Gap 7 3-11 Glucose 80 70-100 mg/dL BUN 11 5-25 mg/dL Creatinine 0.82 0.70-1.30 mg/dL eGFR 93 >=60 mL/min/1.73m2 Calculation based on the?Chronic Kidney Disease Epidemiology Collaboration (CKD-EPI) equation refit?without adjustment for race. BUN/Creatinine Ratio 13.4 Calcium 8.5 8.5-10.5 mg/dL B-TYPE NATRIURETIC PEPTIDE Reviewed date:05/30/2024 04:21:23 PM Interpretation: Performing Lab: Notes/Report: BNP 402 <=100 pcg/mL CBC WITH AUTO DIFFERENTIAL Reviewed date:05/30/2024 04:21:30 PM Interpretation: Performing Lab: Notes/Report: WBC 5.2 4.8-10.8 K/mcL RBC 3.70 4.50-5.50 M/mcL Hemoglobin 13.0 13.5-17.5 g/dL Hematocrit 38.7 42.0-54.0 % MCV 104.3 79.0-98.0 FL MCH 35.0 27.0-32.0 pcg MCHC 33.6 32.0-37.0 g/dL RDW 12.9 11.0-15.0 % Platelets 174 130-400 K/mcL MPV 10.2 7.0-11.0 FL NRBC 0.0 <1.0 % NRBC Absolute 0.00 <0.10 K/mcL Neutrophils Relative 72.5 Lymphocytes Relative 11.6 Monocytes Relative 11.3 Eosinophils Relative 3.2 Basophils Relative 1.0 Immature Granulocytes Relative 0.4 Neutrophils Absolute 3.80 1.50-7.00 K/mcL Lymphocytes Absolute 0.61 1.00-5.00 K/mcL Monocytes Absolute 0.59 0.20-1.00 K/mcL Eosinophils Absolute 0.17 0.00-0.50 K/mcL Basophils Absolute 0.05 0.00-0.20 K/mcL Immature Granulocytes Absolute 0.02 0.00-0.03 K/mcL XR CHEST 2 VIEWS Reviewed date:06/01/2024 12:34:34 PM Interpretation: Performing Lab: Notes/Report: Note See Note [facility], a member of [employer] Patient Name: XIN MANRIQUE Date of : 1950 Reason for Exam: Dyspnea on exertion (RINCON) Exam Date: 05/30/2024 [id number] EST Report Status: Final Ordering Provider: MAYCO KYLE PCP: ANDREY SCHULTZ EXAMINATION: CHEST CLINICAL INFORMATION: COPD. Clinical monica rn for pneumonia. Dyspnea on exertion COMPARISON: Frontal view 08/04/2023 TECHNIQUE: 2 views of the chest FINDINGS: Power generator in t he left chest with leads projecting in the [...] Exaggerated thoracic kyphosis. IMPRESSION: Low lung volumes wit h moderate interstitial opacities in the mid and lower lung zones. This represents interval worsening. I doubt significant drainable pleural fluid. -------- FINAL REPOR T -------- Dictated By: Mitchell Crook Dictated Date: 06/01/2024 09:15 ET Assigned Physician: Mitchell Gonzalez Reviewed and Electronically Signed By: Mitchell Gonzalez Signed Date: 06/01/2024 09:17 ET Workstation ID: [id number] Transcribed By: Self Edit Transcribed Date: 06/01/2024 09:15 ET MAGNESIUM Reviewed date:08/17/2024 07:47:28 AM Interpretation: Performing Lab: Notes/Report: Magnesium 2.4 1.9-2.6 mg/dL PROSTATE SPECIFIC ANTIGEN DEBRA COULTER Reviewed date:08/17/2024 07:47:22 AM Interpretation: Performing Lab: Notes/Report: The Siemens Advia Centaur Chemiluminescent Immunoassay is used. Results obtained with different assay methods or kits cannot be used interchangeably. Results cannot be interpreted as absolute evidence of the presence or absence of malignant disease. PSA <0.06 0.00-4.00 ng/mL PROSTATE SPECIFIC ANTIGEN DI AGNOSTIC Reviewed date:08/17/2024 07:46:52 AM Interpretation: Performing Lab: Notes/Report: The Siemens Advia Centaur Chemiluminescent Immunoassay is used. Results obtained with different assay methods or kits cannot be used interchangeably. Results cannot be interpreted as absolute evidence of the presence or absence of malignant disease. PSA <0.06 0.00-4.00 ng/mL TESTOSTERONE, TOTAL Reviewed date:08/17/2024 07:47:08 AM Interpretation: Performing Lab: Notes/Report: Testosterone <7 229-902 ng/dL COMPREHENSIVE METABOLIC PANE L Reviewed date:08/17/2024 07:47:19 AM Interpretation: Performing Lab: Notes/Report: Sodium 133 133-145 mmol/L Potassium 4.0 3.5-5.5 mmol/L Chloride 100 96-110 mmol/L CO2 24 21-32 mmol/L Anion Gap 9 3-11 Glucose 89 70-100 mg/dL BUN 17 5-25 mg/dL Creatinine 0.89 0.70-1.30 mg/dL eGFR 90 >=60 mL/min/1.73m2 Calculation based on the Chronic Kidney Disease Epidemiology Collaboration (CKD-EPI) equation refit without adjustment for race. BUN/Creatinine Ratio 19.1 Calcium 9.0 8.5-10.5 mg/dL AST (SGOT) 38 10-42 unit/L ALT (SGPT) 42 10-60 unit/L Alkaline Phosphatase 69 42-121 unit/L Total Protein 6.8 6.0-8.0 g/dL Albumin 3.8 3.2-5.0 g/dL Total Bilirubin 0.6 0.0-1.4 mg/dL CBC WITH AUTO DIFFERENTIAL Reviewed date:08/16/2024 05:17:48 PM Interpretation: Performing Lab: Notes/Report: WBC 4.5 4.8-10.8 K/mcL RBC 3.80 4.50-5.50 M/mcL Hemoglobin 13.2 13.5-17.5 g/dL Hematocrit 38.7 42.0-54.0 % MCV 100.8 79.0-98.0 FL MCH 34.4 27.0-32.0 pcg MCHC 34.1 32.0-37.0 g/dL RDW 13.0 11.0-15.0 % Platelets 124 130-400 K/mcL MPV 10.5 7.0-11.0 FL NRBC 0.0 <1.0 % NRBC Absolute 0.00 <0.10 K/mcL Neutrophils Relative 67.3 Lymphocytes Relative 17.0 Monocytes Relative 11.3 Eosinophils Relative 3.5 Basophils Relative 0.7 Immature Granulocytes Relative 0.2 Neutrophils Absolute 3.05 1.50-7.00 K/mcL Lymphocytes Absolute 0.77 1.00-5.00 K/mcL Monocytes Absolute 0.51 0.20-1.00 K/mcL Eosinophils Absolute 0.16 0.00-0.50 K/mcL Basophils Absolute 0.03 0.00-0.20 K/mcL Immature Granulocytes Absolute 0.01 0.00-0.03 K/mcL Hemoglobin [id number] Reviewed date:02/13/2024 04:03:40 PM Interpretation: Performing Lab:[facility], [address] [place] [address], [place], Phone - [phone], Director - Radha Notes/Report: Hemoglobin A1c 5.4 4.8-5.6 % . Prediabetes: 5.7 - 6.4 Diabetes: >6.4 Glycemic control for adults with diabetes: <7.0 PROSTATIC SPECIFIC ANTIGEN Reviewed date:10/06/2023 12:06:15 PM Interpretation: Performing Lab: Notes/Report: Original Ordering Provider: DINESH BARRAGAN MD [employer], [place] [address] Supervisor [employer] - Rahel Edwards MD PROSTATIC SPECIFIC ANTIGEN 0.2 0.0-4.0 ng/mL The Siemens Advia Centaur Chemiluminescent Immunoassay is used. Results obtained with different assay methods or kits cannot be used interchangeably. Results cannot be interpreted as absolute evidence of the presence or absence of malignant disease BASIC METABOLIC PANEL (BMP) Reviewed date:10/06/2023 12:06:24 PM Interpretation: Performing Lab: Notes/Report: Original Ordering Provider: FIOR [facility] [employer], [place] [address] Supervisor [employer] - Rahel Edwards MD GLUCOSE 128 70-100 mg/dL Reference range applicable to fasting specimens only BUN 12 5-25 mg/dL CREAT 0.78 0.7-1.3 mg/dL GLOMERULAR FILTRATION RATE 94 >60 This eGFR result was calculated using the CKD-EPI 2020 Creatinine Equation SODIUM 138 135-145 mEq/L POTASSIUM 3.7 3.5-5.5 mmol/L CHLORIDE 106 96-110 mmol/L CO2 26 21-32 mmol/L ANION GAP 6 3-11 CALCIUM 8.7 8.5-10.5 mg/dL VITAMIN D, 25-HYDROXY Reviewed date:11/10/2023 01:38:25 PM Interpretation: Performing Lab: Notes/Report: VITAMIN D, 25-HYDROXY 33 30-80 ng/mL PROSTATIC SPECIFIC ANTIGEN Reviewed date:11/10/2023 01:37:14 PM Interpretation: Performing Lab: Notes/Report: [employer], a member of [address] [address] Supervisor [employer] - Rahel Edwards MD PROSTATIC SPECIFIC ANTIGEN 0.1 0.0-4.0 ng/mL The Siemens Advia Callaway Digital Artsaur Chemiluminescent Immunoassay is used. Results obtained with different assay methods or kits cannot be used interchangeably. Results cannot be interpreted as absolute evidence of the presence or absence of malignant disease COMPREHENSIVE METABOLIC PANE L Reviewed date:11/10/2023 01:37:41 PM Interpretation: Performing Lab: Notes/Report: Original Ordering Provider: DINESH BARRAGAN MD GLUCOSE 94 70-100 mg/dL Reference range applicable to fasting specimens only BUN 13 5-25 mg/dL CREAT 0.72 0.7-1.3 mg/dL GLOMERULAR FILTRATION RATE 96 >60 This eGFR result was calculated using the CKD-EPI 2020 Creatinine Equation SODIUM 136 135-145 mEq/L POTASSIUM 4.2 3.5-5.5 mmol/L CHLORIDE 104 96-110 mmol/L CO2 26 21-32 mmol/L ANION GAP 6 3-11 CALCIUM 9.1 8.5-10.5 mg/dL TOTAL PROTEIN 6.3 6.0-8.0 G/dL ALBUMIN 3.5 3.2-5.0 G/dL BILI,TOTAL 0.7 0.0-1.4 mg/dL SGOT 24 10-42 U/L SGPT 33 10-60 U/L ALK PHOS 55 42-121 U/L CBC Reviewed date:11/10/2023 01:37:35 PM Interpretation: Performing Lab: Notes/Report: Original Ordering Provider: DINESH BARRAGAN MD [employer], [place] [address] Supervisor [employer] - Rahel Edwards MD WBC 3.3 4.8-10.8 x10-3/uL RBC 3.5 4.5-5.5 x10-6/uL HEMOGLOBIN 12.4 13.5-17.5 g/dL HEMATOCRIT 36.0 42-54 % MCV 102.0 79-98 fL MCH 35.1 27-32 pg MCHC 34.4 32-37 g/dL RDW 13.7 11-15 % PLT COUNT 116 130-400 x10-3/uL MEAN PLATELET VOLUME 10.3 7-11 fL NRBC % AUTO 0.0 <1 % NRBC # AUTO 0.00 <0.1 x10-3/uL BASIC METABOLIC PANEL (BMP) Reviewed date:11/10/2023 01:37:51 PM Interpretation: Performing Lab: Notes/Report: REQ# [id number] Original Ordering Provider: FIOR BRITO [employer], a member of [address] [address] Supervisor [employer] - Rahel Edwards MD GLUCOSE 96 70-100 mg/dL Reference range applicable to fasting specimens only BUN 13 5-25 mg/dL CREAT 0.76 0.7-1.3 mg/dL GLOMERULAR FILTRATION RATE 95 >60 This eGFR result was calculated using the CKD-EPI 2020 Creatinine Equation SODIUM 136 135-145 mEq/L POTASSIUM 4.2 3.5-5.5 mmol/L CHLORIDE 104 96-110 mmol/L CO2 25 21-32 mmol/L ANION GAP 7 3-11 CALCIUM 9.2 8.5-10.5 mg/dL Reason For Referral Reason low back pain and st rength Diagnosis 1 Low back pain, unspe cified (M54.50) Referral Organization [facility] Referring Provider First Name ANDREY Referring Provider Last Name MARION Referring Provider Speciality Internal M edicine Referred Provider Specialty Physical The rapist General Notes Referral printed and hand given to patient.Lavern Crystal 07/11/2024 11:58:35 AM > Referral Priority Routine Medications Medication SIG (Take, Route, Frequency, Duration) Notes Start Date End Date Status Albuterol Sulfate HFA 108 (90 Base) MCG/ACT 2 puff as needed Inhalation every 4 hrs for 90 days Active Zepbound 2.5 MG/0.5ML 0.5 mL Subcutaneou s weekly for 30 days 07/22/2024 Active Anoro Ellipta 62.5-25 MCG/INH 1 puff Inhalation Once a day for 90 days Active Fluconazole 10 MG/ML as directed Orally Not-Taking Eliquis 5 MG 1 tablet Orally twic e a day for 90 days Active Penciclovir 1 % APPLY 1 APPLICATION EXTERNALLY EVERY 2 HOURS FOR 4 DAYS for 30 Not-Taki ng Tadalafil 5 MG TAKE 1 TABLET ONCE DAILY FOR BLADDER CANCER for 90 Active Carvedilol 12.5 MG TAKE 1 TABLET 2 TIME S DAILYWITH FOOD for 90 days Active Ezetimibe 10 MG TAKE 1 TABLET ONCE DAILY for 90 Active Rosuvastatin Calcium 40 MG TAKE 1 TABLET ONCE DAILY for 90 Active Valsartan 160 MG TAKE 1 TABLET ONCE DAILY for 90 Active Ipratropium [place] 0.03 % 2 sprays in each nostril Nasally Twice a day Active Tamsulosin HCl 0.4 MG 1 capsule Orally O nce a day for 90 days Active Latanoprost-Timolol Maleate 0.005-0.5 % 1 drop into affected eye Ophthalmic Once a day Active Omeprazole 20 MG 1 tablet 30 minutes before morning meal Orally Once a day for 90 days Active Lasix 20 MG 1 tablet Orally Once a day Active Farxiga 10 MG 1 tablet Orally Once a day CARDIO Active Immunizations Vaccine Route Administration Date Status Comme nts COVID Unknown 04/03/2021 Administered COVID Rory Unknown 08/10/2020 Administered COVID Rory Unknown 03/12/2021 Administered COVID-19 Pfizer Unknown 02/05/2022 Administered Flu Unknown 03/03/2022 Administered Flu Unknown 01/10/2024 Administered Hep A, adult Unknown 02/23/2023 Administered Influenza Unknown 01/19/2020 Administered Influenza Unknown 01/30/2021 Administered Influenza High Dose Unknown 03/01/2018 Administered Pneumococcal conjugate PCV 13 Unknown 12/01/2016 Admini stered Pneumococcal conjugate PCV 13 Unknown 03/27/2019 Admini stered Pneumococcal polysaccharide PPV23 Unknown 12/01/2017 Ad ministered Shingrix Unknown 06/01/2018 Administered Shingrix Unknown 03/23/2019 Administered Zoster Unknown 06/01/2018 Administered Zoster Unknown 04/01/2019 Administered Social History Tobacco Use: Social History Observation [...] drinks (1 point) Points 4 Interpretation Positive Problems Problem Type SNOMED Code ICD Code Onset Dates Problem Status W/U Status Risk Notes 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 Problem Morbid obesity (disorder) (699368569) Morbid (severe) obesity due to excess calories (E66.01) Active confirmed Problem Obesity due to excess calories (834905766) Other obesity due to excess calories (E66.09) Active confirmed Problem Mixed hyperlipidemia (625655867) Mixed hyperlipidemia (E78.2) Active confirmed Problem Embolism from thrombosis of vein of lower extremity (802612116) 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) Active confirmed Problem Peripheral venous insufficiency (95274830) Venous insufficiency (chronic) (peripheral) (I87.2) Active confirmed Problem 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, 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) Active confirmed Problem Paresthesia (finding) (22615509) Paresthesia of skin (R20.2) Active confirmed Problem Functional urinary incontinence (699397125) Functional urinary incontinence (R39.81) Active confirmed Problem History of malignant neoplasm of prostate (458368517) Personal history of malignant neoplasm of prostate (Z85.46) Active confirmed Problem Cardiac pacemaker in situ (171247553) Presence of cardiac pacemaker (Z95.0) Active confirmed Problem Essential hypertension (88731344) Essential (primary) hypertension (I10) Active confirmed Problem Congestive heart failure (84384360) Congestive heart failure (I50.9) Active confirmed Problem Bilateral carpal tunnel syndrome (1037435181103625 1) Bilateral carpal tunnel syndrome (G56.03) Active confirmed Vital Signs Heart Rate 82 /min 08/15/2024 Temperature 96.4 degrees Fahrenheit 08/15/2024 Blood pressure diastolic 70 mm Hg 08/15/2024 Oximetry 98 % 08/15/2024 Height 5'8'' in 08/15/2024 Blood pressure systolic 110 mm Hg 08/15/2024 Weight 227.4 lbs 08/15/2024 BMI 34.57 kg/m2 08/15/2024 Encounters Encounter Location Date Provider Diagnosis [address] [address] 02/09/2024 ANDREY SCHULTZ Encounter for genera l adult medical examination without abnormal findings Z00.00 ; Essential (primary) hypertension I10 ; Chronic embolism and thrombosis of unspecified deep veins of unspecified lower extremity I82.509 ; Personal history of malignant neoplasm of prostate Z85.46 and Diarrhea, unspecified R19.[address] [address] 07/11/2024 ANDREY SCHULTZ Essential (primary) hypertension I10 ; Other intervertebral disc degeneration, thoracolumbar region M51.35 ; Chronic embolism and thrombosis of unspecified deep veins of unspecified lower extremity I82.509 ; Personal history of malignant neoplasm of prostate Z85.46 ; Congestive heart failure I50.9 ; Other obesity due to excess calories E66.09 and Dietary counseling and surveillance Z71.[address] [address] 07/22/2024 ANDREY SCHULTZ Morbid (severe) obes ity due to excess calories E66.01 and Dietary counseling and surveillance Z71.[address] [address] 08/15/2024 BALDERAS GUL Other obesity due to excess calories E66.09 and Dietary counseling and surveillance Z71.[address] [place] [address] 09/08/[address] [place] [address] 09/17/[address] [place] [address] 02/09/[address] [place] [address] 02/16/[address] [place] [address] 02/19/[address] [place] [address] 08/22/[address] [place] [address] 06/13/2024 BALDERAS GU Assessments Encounter Date Diagnosis (ICD Code) Assessment Notes Treatment Notes Treatment Clinical Notes Section Notes 07/22/2024 Morbid (severe) obesity due to excess calories (ICD-10 - E66.01) Xin is 74 years old gentleman with hypertension, hyperlipidemia, status post prostate cancer, venous insufficiency is here today for medical weight management Diet recommendation. Different dietary modalities discussed with the patient. She was advised to restrict her calories to less than 1500 kcal in 24 hours. Portion control recommended. Low glycemic index foods explained and education material given. Information on Optifast discussed. Mediterranean diet, keto diet, low carbohydrate diet explained and discussed with the patient. Patient advised to download applications for calorie counting. Patient was also advised to use [id number] vitamin D3 supplements and multivitamins. Pharmacotherapy. different medications discussed and he is interested in Zepbound 2.5 mg every weekly. Side effects of the medications explained Exercise. Patient encouraged to To do regular exercise. Encouraged to do aerobic and anaerobic exercises at least 3-4 days a week. Goal is to burn at least 250-500 in One session Behavioral therapy. Importance of behavioral health and weight management discussed with the patient. CBT and motivational interviewing will benefit the patient. If needed will do a referral to a psychologist/psych iatrist. Bariatric surgery. Different procedures discussed with the patient but patient is not interested at this point Screening blood work ordered. Assessed. The patient was assessed and patient does not have any behavioral risk or factors affecting goals of therapy Advised. Patient was given a personalized plan regarding the goals and pros and cons of the treatment Agreed. Collaboratively picked up a treatment plan and patient agreed with the plan Assisted. Patient is assisted in achieving goals. Arrange. Schedule follow-up with the patient to provide ongoing assistance and support and to review the management and treatment plan. Counseling. A total of 30 minutes spent with the patient and more than 50% of time was spent with the patient counseling and educating on different diets, side effects of different medications, pros and cons of medical and surgical weight management, importance of exercise and weight loss and psych intervention for weight loss. 07/22/2024 Dietary counseling and surveillance (ICD-10 - Z71.3) Xin is 74 years old gentleman with hypertension, hyperlipidemia, status post prostate cancer, venous insufficiency is here today for medical weight management Diet recommendation. Different dietary modalities discussed with the patient. She was advised to restrict her calories to less than 1500 kcal in 24 hours. Portion control recommended. Low glycemic index foods explained and education material given. Information on Optifast discussed. Mediterranean diet, keto diet, low carbohydrate diet explained and discussed with the patient. Patient advised to download applications for calorie counting. Patient was also advised to use [id number] vitamin D3 supplements and multivitamins. Pharmacotherapy. different medications discussed and he is interested in Zepbound 2.5 mg every weekly. Side effects of the medications explained Exercise. Patient encouraged to To do regular exercise. Encouraged to do aerobic and anaerobic exercises at least 3-4 days a week. Goal is to burn at least 250-500 in One session Behavioral therapy. Importance of behavioral health and weight management discussed with the patient. CBT and motivational interviewing will benefit the patient. If needed will do a referral to a psychologist/psych iatrist. Bariatric surgery. Different procedures discussed with the patient but patient is not interested at this point Screening blood work ordered. Assessed. The patient was assessed and patient does not have any behavioral risk or factors affecting goals of therapy Advised. Patient was given a personalized plan regarding the goals and pros and cons of the treatment Agreed. Collaboratively picked up a treatment plan and patient agreed with the plan Assisted. Patient is assisted in achieving goals. Arrange. Schedule follow-up with the patient to provide ongoing assistance and support and to review the management and treatment plan. Counseling. A total of 30 minutes spent with the patient and more than 50% of time was spent with the patient counseling and educating on different diets, side effects of different medications, pros and cons of medical and surgical weight management, importance of exercise and weight loss and psych intervention for weight loss. 08/15/2024 Other obesity due to excess calories (ICD-10 - E66.09) Xin is 74 years old gentleman with hypertension, [...] Meal replacements were recommended. Advised to use [id number] multivitamins and vitamin D. Advised to use [...] Dietary counseling and surveillance (ICD-10 - Z71.3) Xin is 74 years old gentleman with hypertension, [...] Meal replacements were recommended. Advised to use [id number] multivitamins and vitamin D. Advised to use [...] than 50% of time was spent counseling 07/11/2024 Other intervertebral disc degeneration, thoracolumbar region (ICD-10 - M51.35) Xin is 73 years old pleasant gentleman with CHF with preserved EF, hypertension, hyperlipidemia, status post pacemaker and he sees Dr. Garg, metastatic prostate cancer and he follows with Dr. Neno Bravo and Dr. Jaiden Colin and is going to [facility], venous insufficiency, DVT lower extremity, obesity is here for follow-up. He complains of arthritic pain in the back and multiple joints, weight gain. He also have selective deficiency of immunoglobulins G subclass. He is here for follow-up Plan is as follows Degenerative disc disease. Advised weight loss, stretching exercises, take Tylenol as needed and referred to physical therapy. Hypertension/hyper lipidemia. Blood pressure well controlled and his last lipid panel was within reasonable limits. We will continue current regimen. Low-sodium diet recommended CHF with preserved EF/status post-pacemaker. He has grade 3 diastolic dysfunction. Cardiology note mentioned ruling out infiltrative disease. He is on beta-blockers and is also on GLP-1 and he is asymptomatic. Venous insufficiency. He has +1 pedal edema. Advised to keep legs elevated, low-sodium and he can benefit from compression stockings. He is on Lasix 20 mg daily he is physically active Metastatic prostate cancer. Follows up with Dr. Neno Bravo and Dr. Jaiden Colin. Last PSA was less than 0.01 and he is off chemotherapy and he is cancer free Acid reflux. He is currently on omeprazole 20 mg daily and was advised to add Gas-X for flatulence Seasonal allergies/asthma. He recently saw Dr. Baeza who prescribed an inhaler and nasal spray. He will follow up with [facility] next week. Chronic DVT. Currently on Eliquis 5 mg 1 tablet twice a day. Obesity. Complications of obesity discussed. Briefly pharmacotherapy, diet restrictions discussed with the patient. He will make a follow-up appointment to have exclusive weight management consult and will go from there. blood work reviewed 07/11/2024 Essential (primary) hypertension (ICD-10 - I10) Xin is 73 years old pleasant gentleman with CHF with preserved EF, hypertension, hyperlipidemia, status post pacemaker and he sees Dr. Garg, metastatic prostate cancer and he follows with Dr. Neno Bravo and Dr. Jaiden Colin and is going to [facility], venous insufficiency, DVT lower extremity, obesity is here for follow-up. He complains of arthritic pain in the back and multiple joints, weight gain. He also have selective deficiency of immunoglobulins G subclass. He is here for follow-up Plan is as follows Degenerative disc disease. Advised weight loss, stretching exercises, take Tylenol as needed and referred to physical therapy. Hypertension/hyper lipidemia. Blood pressure well controlled and his last lipid panel was within reasonable limits. We will continue current regimen. Low-sodium diet recommended CHF with preserved EF/status post-pacemaker. He has grade 3 diastolic dysfunction. Cardiology note mentioned ruling out infiltrative disease. He is on beta-blockers and is also on GLP-1 and he is asymptomatic. Venous insufficiency. He has +1 pedal edema. Advised to keep legs elevated, low-sodium and he can benefit from compression stockings. He is on Lasix 20 mg daily he is physically active Metastatic prostate cancer. Follows up with Dr. Neno Bravo and Dr. Jaiden Colin. Last PSA was less than 0.01 and he is off chemotherapy and he is cancer free Acid reflux. He is currently on omeprazole 20 mg daily and was advised to add Gas-X for flatulence Seasonal allergies/asthma. He recently saw Dr. Baeza who prescribed an inhaler and nasal spray. He will follow up with [facility] next week. Chronic DVT. Currently on Eliquis 5 mg 1 tablet twice a day. Obesity. Complications of obesity discussed. Briefly pharmacotherapy, diet restrictions discussed with the patient. He will make a follow-up appointment to have exclusive weight management consult and will go from there. blood work reviewed 02/09/2024 Essential (primary) hypertension (ICD-10 - I10) Xin is 73 years old pleasant gentleman with CHF with preserved EF, hypertension, hyperlipidemia, status post pacemaker and he sees Dr. Garg, metastatic prostate cancer and he follows with Dr. Neno Bravo and Dr. Jaiden Colin and is going to [facility], venous insufficiency, DVT lower extremity, obesity is here for her annual physical. He also have selective deficiency of immunoglobulins G subclass. He is here for annual physical. Plan is as follows Hypertension/hyper lipidemia. Blood pressure well controlled and his last lipid panel was within reasonable limits. We will continue current regimen. Low-sodium diet recommended CHF with preserved EF. He is on beta-blockers and is also on GLP-1 and he is asymptomatic. Venous insufficiency. He has +1 pedal edema. Advised to keep legs elevated, low-sodium and he can benefit from compression stockings. No need for diuretics at this point he is physically active. He is also on steroids for prostate cancer and once he stops steroids most likely edema will also improve Metastatic prostate cancer. Follows up with Dr. Neno Bravo and Dr. Jaiden Colin. Last PSA was less than 0.01 and he is going to follow-up with [facility] to be of the current regimen. We will do CBC, comprehensive panel. Acid reflux. He is currently on omeprazole 20 mg daily. Seasonal allergies/asthma. He recently saw Dr. Baeza who prescribed an inhaler and nasal spray. He will follow up with [facility] next week Diarrhea. Likely gluten sensitivity. Check TTG. He is full code and his is his healthcare proxy Screening blood work before next appointment. He is up-to-date on rest of his screening 02/09/2024 Encounter for general adult medical examination without abnormal findings (ICD-10 - Z00.00) iXn is 73 years old pleasant gentleman with CHF with preserved EF, hypertension, hyperlipidemia, status post pacemaker and he sees Dr. Garg, metastatic prostate cancer and he follows with Dr. Neno Bravo and Dr. Jaiden Colin and is going to [facility], venous insufficiency, DVT lower extremity, obesity is here for her annual physical. He also have selective deficiency of immunoglobulins G subclass. He is here for annual physical. Plan is as follows Hypertension/hyper lipidemia. Blood pressure well controlled and his last lipid panel was within reasonable limits. We will continue current regimen. Low-sodium diet recommended CHF with preserved EF. He is on beta-blockers and is also on GLP-1 and he is asymptomatic. Venous insufficiency. He has +1 pedal edema. Advised to keep legs elevated, low-sodium and he can benefit from compression stockings. No need for diuretics at this point he is physically active. He is also on steroids for prostate cancer and once he stops steroids most likely edema will also improve Metastatic prostate cancer. Follows up with Dr. Neno Bravo and Dr. Jaiden Colin. Last PSA was less than 0.01 and he is going to follow-up with [facility] to be of the current regimen. We will do CBC, comprehensive panel. Acid reflux. He is currently on omeprazole 20 mg daily. Seasonal allergies/asthma. He recently saw Dr. Baeza who prescribed an inhaler and nasal spray. He will follow up with [facility] next week Diarrhea. Likely gluten sensitivity. Check TTG. He is full code and his is his healthcare proxy Screening blood work before next appointment. He is up-to-date on rest of his screening 02/09/2024 Chronic embolism and thrombosis of unspecified deep veins of unspecified lower extremity (ICD-10 - I82.509) Xin is 73 years old pleasant gentleman with CHF with preserved EF, hypertension, hyperlipidemia, status post pacemaker and he sees Dr. Garg, metastatic prostate cancer and he follows with Dr. Neno Bravo and Dr. Jaiden Colin and is going to [facility], venous insufficiency, DVT lower extremity, obesity is here for her annual physical. He also have selective deficiency of immunoglobulins G subclass. He is here for annual physical. Plan is as follows Hypertension/hyper lipidemia. Blood pressure well controlled and his last lipid panel was within reasonable limits. We will continue current regimen. Low-sodium diet recommended CHF with preserved EF. He is on beta-blockers and is also on GLP-1 and he is asymptomatic. Venous insufficiency. He has +1 pedal edema. Advised to keep legs elevated, low-sodium and he can benefit from compression stockings. No need for diuretics at this point he is physically active. He is also on steroids for prostate cancer and once he stops steroids most likely edema will also improve Metastatic prostate cancer. Follows up with Dr. Neno Bravo and Dr. Jaiden Colin. Last PSA was less than 0.01 and he is going to follow-up with [facility] to be of the current regimen. We will do CBC, comprehensive panel. Acid reflux. He is currently on omeprazole 20 mg daily. Seasonal allergies/asthma. He recently saw Dr. Baeza who prescribed an inhaler and nasal spray. He will follow up with [facility] next week Diarrhea. Likely gluten sensitivity. Check TTG. He is full code and his is his healthcare proxy Screening blood work before next appointment. He is up-to-date on rest of his screening 07/11/2024 Chronic embolism and thrombosis of unspecified deep veins of unspecified lower extremity (ICD-10 - I82.509) Xin is 73 years old pleasant gentleman with CHF with preserved EF, hypertension, hyperlipidemia, status post pacemaker and he sees Dr. Garg, metastatic prostate cancer and he follows with Dr. Neno Bravo and Dr. Jaiden Colin and is going to [facility], venous insufficiency, DVT lower extremity, obesity is here for follow-up. He complains of arthritic pain in the back and multiple joints, weight gain. He also have selective deficiency of immunoglobulins G subclass. He is here for follow-up Plan is as follows Degenerative disc disease. Advised weight loss, stretching exercises, take Tylenol as needed and referred to physical therapy. Hypertension/hyper lipidemia. Blood pressure well controlled and his last lipid panel was within reasonable limits. We will continue current regimen. Low-sodium diet recommended CHF with preserved EF/status post-pacemaker. He has grade 3 diastolic dysfunction. Cardiology note mentioned ruling out infiltrative disease. He is on beta-blockers and is also on GLP-1 and he is asymptomatic. Venous insufficiency. He has +1 pedal edema. Advised to keep legs elevated, low-sodium and he can benefit from compression stockings. He is on Lasix 20 mg daily he is physically active Metastatic prostate cancer. Follows up with Dr. Neno Bravo and Dr. Jaiden Colin. Last PSA was less than 0.01 and he is off chemotherapy and he is cancer free Acid reflux. He is currently on omeprazole 20 mg daily and was advised to add Gas-X for flatulence Seasonal allergies/asthma. He recently saw Dr. Baeza who prescribed an inhaler and nasal spray. He will follow up with [facility] next week. Chronic DVT. Currently on Eliquis 5 mg 1 tablet twice a day. Obesity. Complications of obesity discussed. Briefly pharmacotherapy, diet restrictions discussed with the patient. He will make a follow-up appointment to have exclusive weight management consult and will go from there. blood work reviewed 07/11/2024 Personal history of malignant neoplasm of prostate (ICD-10 - Z85.46) Xin is 73 years old pleasant gentleman with CHF with preserved EF, hypertension, hyperlipidemia, status post pacemaker and he sees Dr. Garg, metastatic prostate cancer and he follows with Dr. Neno Bravo and Dr. Jaiden Colin and is going to [facility], venous insufficiency, DVT lower extremity, obesity is here for follow-up. He complains of arthritic pain in the back and multiple joints, weight gain. He also have selective deficiency of immunoglobulins G subclass. He is here for follow-up Plan is as follows Degenerative disc disease. Advised weight loss, stretching exercises, take Tylenol as needed and referred to physical therapy. Hypertension/hyper lipidemia. Blood pressure well controlled and his last lipid panel was within reasonable limits. We will continue current regimen. Low-sodium diet recommended CHF with preserved EF/status post-pacemaker. He has grade 3 diastolic dysfunction. Cardiology note mentioned ruling out infiltrative disease. He is on beta-blockers and is also on GLP-1 and he is asymptomatic. Venous insufficiency. He has +1 pedal edema. Advised to keep legs elevated, low-sodium and he can benefit from compression stockings. He is on Lasix 20 mg daily he is physically active Metastatic prostate cancer. Follows up with Dr. Neno Bravo and Dr. Jaiden Colin. Last PSA was less than 0.01 and he is off chemotherapy and he is cancer free Acid reflux. He is currently on omeprazole 20 mg daily and was advised to add Gas-X for flatulence Seasonal allergies/asthma. He recently saw Dr. Baeza who prescribed an inhaler and nasal spray. He will follow up with [facility] next week. Chronic DVT. Currently on Eliquis 5 mg 1 tablet twice a day. Obesity. Complications of obesity discussed. Briefly pharmacotherapy, diet restrictions discussed with the patient. He will make a follow-up appointment to have exclusive weight management consult and will go from there. blood work reviewed 02/09/2024 Personal history of malignant neoplasm of prostate (ICD-10 - Z85.46) Xin is 73 years old pleasant gentleman with CHF with preserved EF, hypertension, hyperlipidemia, status post pacemaker and he sees Dr. Garg, metastatic prostate cancer and he follows with Dr. Neno Bravo and Dr. Jaiden Colin and is going to [facility], venous insufficiency, DVT lower extremity, obesity is here for her annual physical. He also have selective deficiency of immunoglobulins G subclass. He is here for annual physical. Plan is as follows Hypertension/hyper lipidemia. Blood pressure well controlled and his last lipid panel was within reasonable limits. We will continue current regimen. Low-sodium diet recommended CHF with preserved EF. He is on beta-blockers and is also on GLP-1 and he is asymptomatic. Venous insufficiency. He has +1 pedal edema. Advised to keep legs elevated, low-sodium and he can benefit from compression stockings. No need for diuretics at this point he is physically active. He is also on steroids for prostate cancer and once he stops steroids most likely edema will also improve Metastatic prostate cancer. Follows up with Dr. Neno Bravo and Dr. Jaiden Colin. Last PSA was less than 0.01 and he is going to follow-up with [facility] to be of the current regimen. We will do CBC, comprehensive panel. Acid reflux. He is currently on omeprazole 20 mg daily. Seasonal allergies/asthma. He recently saw Dr. Baeza who prescribed an inhaler and nasal spray. He will follow up with [facility] next week Diarrhea. Likely gluten sensitivity. Check TTG. He is full code and his is his healthcare proxy Screening blood work before next appointment. He is up-to-date on rest of his screening 07/11/2024 Congestive heart failure (ICD-10 - I50.9) Xin is 73 years old pleasant gentleman with CHF with preserved EF, hypertension, hyperlipidemia, status post pacemaker and he sees Dr. Garg, metastatic prostate cancer and he follows with Dr. Neno Bravo and Dr. Jaiden Colin and is going to [facility], venous insufficiency, DVT lower extremity, obesity is here for follow-up. He complains of arthritic pain in the back and multiple joints, weight gain. He also have selective deficiency of immunoglobulins G subclass. He is here for follow-up Plan is as follows Degenerative disc disease. Advised weight loss, stretching exercises, take Tylenol as needed and referred to physical therapy. Hypertension/hyper lipidemia. Blood pressure well controlled and his last lipid panel was within reasonable limits. We will continue current regimen. Low-sodium diet recommended CHF with preserved EF/status post-pacemaker. He has grade 3 diastolic dysfunction. Cardiology note mentioned ruling out infiltrative disease. He is on beta-blockers and is also on GLP-1 and he is asymptomatic. Venous insufficiency. He has +1 pedal edema. Advised to keep legs elevated, low-sodium and he can benefit from compression stockings. He is on Lasix 20 mg daily he is physically active Metastatic prostate cancer. Follows up with Dr. Neno Bravo and Dr. Jaiden Colin. Last PSA was less than 0.01 and he is off chemotherapy and he is cancer free Acid reflux. He is currently on omeprazole 20 mg daily and was advised to add Gas-X for flatulence Seasonal allergies/asthma. He recently saw Dr. Baeza who prescribed an inhaler and nasal spray. He will follow up with [facility] next week. Chronic DVT. Currently on Eliquis 5 mg 1 tablet twice a day. Obesity. Complications of obesity discussed. Briefly pharmacotherapy, diet restrictions discussed with the patient. He will make a follow-up appointment to have exclusive weight management consult and will go from there. blood work reviewed 07/11/2024 Other obesity due to excess calories (ICD-10 - E66.09) Xin is 73 years old pleasant gentleman with CHF with preserved EF, hypertension, hyperlipidemia, status post pacemaker and he sees Dr. Garg, metastatic prostate cancer and he follows with Dr. Neno Bravo and Dr. Jaiden Colin and is going to [facility], venous insufficiency, DVT lower extremity, obesity is here for follow-up. He complains of arthritic pain in the back and multiple joints, weight gain. He also have selective deficiency of immunoglobulins G subclass. He is here for follow-up Plan is as follows Degenerative disc disease. Advised weight loss, stretching exercises, take Tylenol as needed and referred to physical therapy. Hypertension/hyper lipidemia. Blood pressure well controlled and his last lipid panel was within reasonable limits. We will continue current regimen. Low-sodium diet recommended CHF with preserved EF/status post-pacemaker. He has grade 3 diastolic dysfunction. Cardiology note mentioned ruling out infiltrative disease. He is on beta-blockers and is also on GLP-1 and he is asymptomatic. Venous insufficiency. He has +1 pedal edema. Advised to keep legs elevated, low-sodium and he can benefit from compression stockings. He is on Lasix 20 mg daily he is physically active Metastatic prostate cancer. Follows up with Dr. Neno Bravo and Dr. Jaiden Colin. Last PSA was less than 0.01 and he is off chemotherapy and he is cancer free Acid reflux. He is currently on omeprazole 20 mg daily and was advised to add Gas-X for flatulence Seasonal allergies/asthma. He recently saw Dr. Baeza who prescribed an inhaler and nasal spray. He will follow up with [facility] next week. Chronic DVT. Currently on Eliquis 5 mg 1 tablet twice a day. Obesity. Complications of obesity discussed. Briefly pharmacotherapy, diet restrictions discussed with the patient. He will make a follow-up appointment to have exclusive weight management consult and will go from there. blood work reviewed 02/09/2024 Diarrhea, unspecified (ICD-10 - R19.7) Xin is 73 years old pleasant gentleman with CHF with preserved EF, hypertension, hyperlipidemia, status post pacemaker and he sees Dr. Garg, metastatic prostate cancer and he follows with Dr. Neno Bravo and Dr. Jaiden Colin and is going to [facility], venous insufficiency, DVT lower extremity, obesity is here for her annual physical. He also have selective deficiency of immunoglobulins G subclass. He is here for annual physical. Plan is as follows Hypertension/hyper lipidemia. Blood pressure well controlled and his last lipid panel was within reasonable limits. We will continue current regimen. Low-sodium diet recommended CHF with preserved EF. He is on beta-blockers and is also on GLP-1 and he is asymptomatic. Venous insufficiency. He has +1 pedal edema. Advised to keep legs elevated, low-sodium and he can benefit from compression stockings. No need for diuretics at this point he is physically active. He is also on steroids for prostate cancer and once he stops steroids most likely edema will also improve Metastatic prostate cancer. Follows up with Dr. Neno Bravo and Dr. Jaiden Colin. Last PSA was less than 0.01 and he is going to follow-up with [facility] to be of the current regimen. We will do CBC, comprehensive panel. Acid reflux. He is currently on omeprazole 20 mg daily. Seasonal allergies/asthma. He recently saw Dr. Baeza who prescribed an inhaler and nasal spray. He will follow up with [facility] next week Diarrhea. Likely gluten sensitivity. Check TTG. He is full code and his is his healthcare proxy Screening blood work before next appointment. He is up-to-date on rest of his screening 07/11/2024 Dietary counseling and surveillance (ICD-10 - Z71.3) Xin is 73 years old pleasant gentleman with CHF with preserved EF, hypertension, hyperlipidemia, status post pacemaker and he sees Dr. Garg, metastatic prostate cancer and he follows with Dr. Neno Bravo and Dr. Jaiden Colin and is going to [facility], venous insufficiency, DVT lower extremity, obesity is here for follow-up. He complains of arthritic pain in the back and multiple joints, weight gain. He also have selective deficiency of immunoglobulins G subclass. He is here for follow-up Plan is as follows Degenerative disc disease. Advised weight loss, stretching exercises, take Tylenol as needed and referred to physical therapy. Hypertension/hyper lipidemia. Blood pressure well controlled and his last lipid panel was within reasonable limits. We will continue current regimen. Low-sodium diet recommended CHF with preserved EF/status post-pacemaker. He has grade 3 diastolic dysfunction. Cardiology note mentioned ruling out infiltrative disease. He is on beta-blockers and is also on GLP-1 and he is asymptomatic. Venous insufficiency. He has +1 pedal edema. Advised to keep legs elevated, low-sodium and he can benefit from compression stockings. He is on Lasix 20 mg daily he is physically active Metastatic prostate cancer. Follows up with Dr. Neno Bravo and Dr. Jaiden Colin. Last PSA was less than 0.01 and he is off chemotherapy and he is cancer free Acid reflux. He is currently on omeprazole 20 mg daily and was advised to add Gas-X for flatulence Seasonal allergies/asthma. He recently saw Dr. Baeza who prescribed an inhaler and nasal spray. He will follow up with main entree cook and cashier next week. Chronic DVT. Currently on Eliquis 5 mg 1 tablet twice a day. Obesity. Complications of obesity discussed. Briefly pharmacotherapy, diet restrictions discussed with the patient. He will make a follow-up appointment to have exclusive weight management consult and will go from there. blood work reviewed Plan Of Treatment Pending Test Test Name Order Date HEMOGLOBIN A1C 03/21/2022 HEMOGLOBIN A1C WITH EST GLUCOSE 07/24/19 24 Next Appt Details Provider Name:ANDREY SCHULTZ , 09/21/2024 08:30:00 AM, [address] [place] [address], [phone], Insurance Providers Payer Name Payer Address Payer Phone Subscriber Number Group Number Insured Name Patient Relationship to Insured Coverage Start Date Coverage End Date Medicare [address] [place] [address] [phone] [id number] XIN PATEL Self - patient is the insured [employer] ([employer]) [address] [place] [address] [id number] XIN PATEL Self - patient is the insured Medical (General) History Medical History History ICD Code Hypertension Hyperlipidemia GERD DVT in right leg, 2019 Personal history of malignant neoplasm o f prostate, Dr. Barragan, Dr. Colin Low IgG Venous insufficiency s/p pacemaker for Heart Block, Dr. Archibald co Dr. 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
--- OUTSIDE RECORDS SUMMARY | 2024-09-15 09:21 | XMS_ITS | Encounter Summary ---
Author Organization [employer] Address [address] [place] [address] Care Team Providers Care Powder Cutting Operator Name Role Phone Eveline Boyd MD Primary Care Provider [phone] Encounter Details Date Type Department Care Team (Late st Contact Info) Description 02/23/2024 9:15 AM EDT Hospital Encounter TH HISTORIC ENCOUNTERS EASTERN CONVERSION ONLY Peña Barragan MD [address] [place] [phone] Social History Tobacco Use Types Packs/Day Years [...] pacing thresholds. IMPRESSION: Normal device function. YUMI ROSAP-Lily Feb 23, 2024 10:28 documented in this encounter Plan of Treatment Upcoming Encounters Date Type Department Care Team (Late st Contact Info) Description 09/28/2024 9:00 AM EDT Office Visit [facility] Hematology Oncology [address] [place] [phone] Peña Barragan MD [address] [place] [phone] 11/09/2024 9:30 AM EDT Ancillary Procedure [facility] Cardiology [facility] - [address] [place] [address] 01/10/2025 8:00 AM EDT Ancillary Procedure [facility] - [address] [place] [address] 02/01/2025 8:40 AM EDT Office Visit [facility] - [address] [place] [address] Mariia Pérez NP [address] [place] [address] 07/26/2025 9:45 AM EDT Office Visit Pulmonolgy - [place] 175 [facility] [address] [place] [phone] Brian Rivera MD 175 [facility] 200 [place] [address] documented as of this encounter Goals Goal [...] on filedocumented in this encounter Care Teams Powder Cutting Operator Relationship Specialty Start Date End Date Eveline Boyd MD [address] [place] [phone] PCP - General 03/20/22 documented as of this encounter
--- OUTSIDE RECORDS SUMMARY | 2024-09-15 09:21 | XMS_ITS | Encounter Summary ---
Author Organization [facility] Address [address] [place] [address] Care Team Providers Care Employee Relations Director Name Role Phone Eveline Boyd MD Primary Care Provider [phone] Encounter Details Date Type Department Care Team (Late Contact Info) Description 02/16/2024 10:38 AM EDT Hospital Encounter TH HISTORIC ENCOUNTERS EASTERN CONVERSION ONLY Peña Barragan MD [address] [place] [address] Social History Tobacco Use Types Packs/Day Years [...] AM EST documented as of this encounter Plan of Treatment Upcoming Encounters Date Type Department Care Team (Late st Contact Info) Description 09/28/2024 9:00 AM EDT Office Visit [facility] Hematology Oncology [address] [place] [phone] Peña Barragan MD [address] [place] [address] 11/09/2024 9:30 AM EDT Ancillary Procedure [facility] Cardiology [facility] - [address] [place] [address] 01/10/2025 8:00 AM EDT Ancillary Procedure [facility] - [address] [place] [address] 02/01/2025 8:40 AM EDT Office Visit [facility] - [address] [place] [address] Mariia Pérez NP [address] [place] [address] 07/26/2025 9:45 AM EDT Office Visit Pulmonolgy - [place] [address] [place] [address] Brian Rivera MD [address] [place] [address] documented as of this encounter Goals Goal [...] on filedocumented in this encounter Care Teams Employee Relations Director Relationship Specialty Start Date End Date Eveline Boyd MD [address] [place] [address] PCP - General 03/20/22 documented as of this encounter
--- OUTSIDE RECORDS SUMMARY | 2024-09-15 09:21 | XMS_ITS | Encounter Summary ---
Author Organization [facility] Address [address] [place] [address] Care Team Providers Care Nut Picker Name Role Phone Eveline Boyd MD Primary Care Provider [phone] Reason for Visit * Consultation (Routine) - Authorized Specialty Diagnoses / Procedures Referred By Deirdre laguerre Referred To Contact Physical Therapy Diagnoses Low back pain, unspecified Eveline Boyd MD [address] [place] [address] Phone: tel: fax: [facility] [address] [address] Phone: tel: fax: Referral ID Status Reason Start Date Expiration Date Visits Requested Visits Authorized [id number] Authorized Specialty Services Required 07/26/2024 07/26/2025 12 12 Encounter Details Date Type Department Care Team (Late st Contact Info) Description 09/13/2024 9:30 AM EDT Treatment [facility] [address] [address] Leonidas Keys, MALIK Chronic low back pain without sciatica, unspecified back pain laterality (Primary Dx) Social History Tobacco Use Types [...] AM EST documented as of this encounter Progress Notes * Leonidas Keys, PT - 09/13/2024 9:30 AM EDT [facility] - Outpatient PHYSICAL THERAPY PROGNESS NOTE - OP Date: 09/13/2024 Visit Number: [id number] Patient Name: Phani Navas : 1950 Age: 74 y.o. Gender: male Diagnosis: ICD-10-CM ICD-9-CM 1. Chronic low back pain without sciatica, unspecified back pain laterality M54.50 724.2 G89.29 338.29 Date of Onset/Surgery: 07/29/2024 Referring Provider: Eveline Boyd MD Insurance: Payor: MEDICARE / Plan: MEDICARE PART A & B / Product Type: Medicare / Patient Identified by: Leonidas Keys, PT Language: Hungarian Medications: Current Outpatient Medications on File Prior to Visit Medication Sig Dispense Refill albuterol HFA (PROAIR HFA ; PROVENTIL HFA ; VENTOLIN HFA) 90 mcg/actuation inhaler Inhale 2 puffs by mouth every 6 hours as needed for wheezing or shortness of breath. apixaban (ELIQUIS) 5 mg tablet Take 1 tablet (5 mg total) by mouth 2 (two) times a day. 180 tablet 3 carvediloL (COREG) 3.125 mg tablet Take 1 tablet (3.125 mg total) by mouth 2 (two) times a day withmeals. dapagliflozin propanediol (Farxiga) 10 mg tablet Take 1 tablet (10 mg total) by mouth 1 (one) time each day. 90 tablet 3 ezetimibe (ZETIA) 10 mg tablet Take 1 tablet (10 mg total) by mouth 1 (one) time each day. furosemide (LASIX) 20 mg tablet Take 1 tablet (20 mg total) by mouth 1 (one) time each day. 90 tablet 3 ipratropium (ATROVENT) 21 mcg (0.03 %) nasal spray SPRAY 2 SPRAYS BY NASAL ROUTE 3 TIMES DAILY NEEDED FOR RHINITIS FOR UP TO 30 DAYS. 16 mL 1 latanoprost (XALATAN) 0.005 % ophthalmic solution Administer 1 drop into the right eye at bedtime. latanoprost (XALATAN) 0.005 % ophthalmic solution 1 drop at bedtime. omeprazole (PriLOSEC) [address] capsule Take 1 capsule (20 mg total) by mouth 1 (one) time each day. rosuvastatin (CRESTOR) 40 mg tablet Take 1 tablet (40 mg total) by mouth 1 (one) time each day. tadalafiL (CIALIS) 5 mg tablet Take 1 tablet (5 mg total) by mouth 1 (one) time each day. tamsulosin (FLOMAX) 0.4 mg 24 hr capsule Take 1 capsule (0.4 mg total) by mouth 1 (one) time each day with breakfast. Capsules should be taken 30 minutes following the same meal each day. valsartan (DIOVAN) 160 mg tablet Take 1 tablet (160 mg total) by mouth 1 (one) time each day. No current facility-administered medications on file prior to visit. Allergies: is allergic to hydrochlorothiazide and nsaids (non-steroidal anti- inflammatory drug). Precautions: Fall risk: No Patient/Caregiver Goals: SUBJECTIVE Subjective Report: Pt reports intermittent mid-back pain. Pt states he is able to garden without pain or difficulty Chart Reviewed: Yes Pain Mid-back pain 5/10 intermittent OBJECTIVE TREATMENT INTERVENTION: Modalities: None performed Procedures: Nustep at level 4 x3 min Supine piriformis and glute stretch each with 30 sec hold x3 B Upper trunk rotations x10 B Sit to stand x10 with pain ASSESSMENT/Response to Treatment Good Pt independent with HEP and will use the gym for additional exercise. Pt has progressed well with skilled PT to improved movement with decreased pain. Pt verbalized understanding of discharge from skilled PT on this date GOALS Goals Addressed This Visit's Progress PT LTGs Pt will report no pain with lumbar AROM testing - met Pt will transfer quadruped to/from standing independent with no back pain reported to return to gardening - met Pt will be independent with HEP - met Patient Education: Education provided: Yes Education Provided To: Patient utilizing Explanation mode(s) of education Response to Education: Verbal Understanding PLAN POC Development/Review: No Change in the Plan of Care; Participants: Patient Total Treatment Time: 15 Modalities: Therapeutic procedures: Documentation completed by Leonidas Keys PT documented in this encounter Plan of Treatment Upcoming Encounters Date Type Department Care Team (Late st Contact Info) Description 09/28/2024 9:00 AM EDT Office Visit [facility] Hematology Oncology [address] [place] [phone] Peña Barragan MD [address] [place] [phone] 11/09/2024 9:30 AM EDT Ancillary Procedure [facility] Cardiology [facility] [address] [facility] 154 [place] [address] 01/10/2025 8:00 AM EDT Ancillary Procedure [facility] [address] [facility] [address] [place] [address] 02/01/2025 8:40 AM EDT Office Visit [facility] Cardiology [facility] [address] [facility] [address] [place] [address] Mariia Pérez NP [address] [facility] [address] [place] [address] 07/26/2025 9:45 AM EDT Office Visit Pulmonolgy - [place] 175 [facility] 200 [place] [phone] Brian Rivera MD 175 [facility] 200 [place] [address] documented as of this encounter Goals Goal [...] documented as of this encounter Visit Diagnoses Diagnosis Chronic low back pain without sciatica, unspecified back pain laterality- Primary Encounter for adjustment or management of cardiac device documented in this encounter Care Teams Nut Picker Relationship Specialty Start Date End Date Eveline Boyd MD [address] [place] [address] PCP - General 03/20/22 documented as of this encounter
[2024-09-15 11:15] LABS: Prostate Specific Antigen < 0.10 ng/mL (<0.05-4.0)
[2024-09-22 15:08] LABS: Testosterone, Total <1 ng/dL (250-1100)
== END 2024-09-15 08:54 | disposition home or self-care (01) ==
LOC: HO.LAB 08:53
PROVIDERS: Absent Provider Internal Medicine Medical Oncology; PCP Hospitalist; Visit Provider Urology
DX: C61 Malignant neoplasm of prostate (principal); C79.51 Secondary malignant neoplasm of bone; Z12.5 Encounter for screening for malignant neoplasm of prostate
CPT/HCPCS: 36415; 84153; 84403

== ENCOUNTER 2024-10-25 08:48 | Outpatient (AMB) | payer OTHER, SELFPAY ==
--- NOTE | 2024-10-25 08:51 | MHC.OFFVIS ---
Intake Visit Reasons: 6m/labs Intake Note: Patient is present for 6M/LABS Urology Medication:TADALAFIL,FUROSEMIDE Antibiotic Allergy:NONE Blood Thinner:APIXABAN Tile Fitter Required: No Allergies hydrochlorothiazide Allergy (Unknown, Verified 10/25/24 08:53) Unknown NSAIDS Allergy (Unknown, Uncoded 10/25/24 08:53) Unknown HPI Comments Details: Phani MANRIQUE is a very pleasant male. He is a patient of Dr Boyd. He is seen for the following urologic conditions. - prostate cancer high-grade - lower urinary tract symptoms - erectile dysfunction Continued biochemically controlled prostate cancer [facility] has recommended no more GnRH injections Came off abiraterone and prednisone with Dr. Barragan - 04/10 Oncologist - Dr Barragan Discussed results Continue to follow Has some return of energy levels Is interested in testosterone recovery 10/09 <0.1, T <1 05/10 PSA <0.1, T<1 02/08 <0.1, T<1 11/08 0.16 T<1 GnRH - PMSA f/u with oncology 08/08 PSA 0.2 T <1 - combination therapy abiraterone - found small lesion spine on PMSA scan - spot radiation performed in [place] 04/09 PSA 0.5 T2 GnRH PSA 08/07 2.98 T <1, 11/07 0.6 Prostate cancer Grade Group 5 - EXBRT completed 05/08 - Last GnRH 11/08 11/07 Off abiraterone secondary to fluid related side effects Initial therapy GnRH with external beam radiation and maximum androgen blockade with GnRH and anti androgen - Radiation complete 05/08 Accelerating PSA - 11/06 8.1 F 22%, 02/[address] De Jesus for accelerating PSA 01/06 Histologic type: Adenocarcinoma, acinar type ? Edna score: 4+5=9 (right base lateral 70%, right base medial 100% and right mid lateral 90%) 4+4=8 (left base media 5% l, right mid medial 5% ) Tumor quantitation: ? Number cores positive: 5/12 ? % of tissue involved: Approximately 20% of all tissue examined 300/1200 Periprostatic fat inv.: Present Seminal vesicle inv.: Not identified Perineural inv.: Present LVI: Indeterminate GnRH injection 02/06, 08/07, 04/09 Imaging - 02/06 bone scan negative, CT scan no evidence of charo disease - large complex cyst on Left kidney Erectile dysfunction: Taking medication daily Tadalafil 5 mg, will add Flomax for urination urgency He presents today for for continued evaluation and management of erectile dysfunction. Symptoms have been present for/since Ongoing. Current treatment includes tadalafil 5 mg daily Prior therapies include oral medications 10 mg daily tadalafil with headache At this time he experiences erections are partial and adequate for vaginal penetration, that undergo rapid detumesence after penetration, RZAA 8-11 Moderate ED. Nocturnal erections do occur. Currently they are in a stable relationship. Overall he is satisfied with the current management. Therapeutic plan includes - continue surveillance in [facility] for 24 month total [facility] Medical History Asthma Nocturia BPH (benign prostatic hyperplasia) HTN (hypertension) Hydrocele Erectile dysfunction due to arterial insufficiency Bladder outlet obstruction Incomplete emptying of bladder Weak urinary stream Surgical History History of total right knee replacement History of left knee replacement Family History Father No problems noted. Mother No problems noted. Review of Systems Const Denies chills and Denies fever(s) Card Reports no additional complaints and Denies syncope Resp Denies cough GI Denies abdominal pain and Denies heartburn Reports as per HPI and Denies change in libido Neuro Denies syncope Psych Denies change in libido Endo Denies change in libido Physical Exam Const General: cooperative, healthy appearing, comfortable and no acute distress Orientation/consciousness: patient oriented x3 HEENT Face and sinus: Yes normal facial exam Mouth: moist mucous membranes Neck Neck: Yes normal visual inspection, Yes full ROM and Yes trachea midline Chest Chest palpation & inspection: normal inspection of the chest Resp Effort & Inspection: normal respiratory effort, able to speak in complete sentences and no respiratory distress GI Inspection: Yes normal to inspection Back/Spine/Pelvis Cervical Spine: normal cervical lordosis Thoracic/Lumbar Spine: thoracic and lumbar spine normal to inspection Skin General skin exam: no rashes or lesions noted Neuro General: patient oriented x3, gait normal, tone normal and moves all extremities Extrem General: Yes normal to inspection and Yes capillary refill normal Results AMB Urinalysis, Automated UA Leukoctes 0 Jing/uL Last Edit by SAMEER Fu on 10/25/24 09:06 UA Nitrite Negative Last Edit by Darius Wesley [facility] on 10/25/24 09:06 UA Urobilinogen 0.2 mg/dL Last Edit by Darius Wesley [facility] on 10/25/24 09:06 UA Protein 0 mg/dL Last Edit by Darius Wesley [facility] on 10/25/24 09:06 UA pH 6.0 Last Edit by Darius Wesley [facility] on 10/25/24 09:06 UA Blood 0 Pierce/uL Last Edit by Darius Wesley [facility] on 10/25/24 09:06 UA Specific [place] 1.015 Last Edit by [facility] on 10/25/24 09:06 UA Ketone Positive Last Edit by Darius Wesley [facility] on 10/25/24 09:06 UA Bilirubin 0 mg/dL Last Edit by Darius Wesley [facility] on 10/25/24 09:06 UA Glucose 1000 mg/dL Last Edit by Darius Wesley [facility] on 10/25/24 09:06 Assessment & Plan Assessment & Plan (1) Erectile dysfunction due to arterial insufficiency: Code(s): N52.01 - Erectile dysfunction due to arterial insufficiency Category: Medical (2) Prostate cancer: Comment: 01/06 high-grade clinically localized Code(s): C61 - Malignant neoplasm of prostate Category: Medical Plan Six-month follow-up lab work office Orders: Orders AMB Urinalysis Automated Today Z13.9 - Encounter for screening, unspecified Testosterone, Total 6 Months C61 - Malignant neoplasm of prostate, C79.51 - Secondary malignant neoplasm of bone Prostate Specific Antigen 6 Months C61 - Malignant neoplasm of prostate, C79.51 - Secondary malignant neoplasm of bone Patient Instructions: This note is constructed using voice recognition software. While every effort has been made to ensure accuracy foreman or supervisor and operator errors may have been included. Imaging studies, laboratory and physical exam results were discussed and reviewed in detail. No major barriers to patient understanding were identified. An opportunity to ask questions regarding the treatment plan was provided. All questions were answered. The patient expressed understanding and agreement with the above treatment plan. The patient is aware they should contact our office by phone for worsening of their current condition or the appearance of new urologic symptoms. Compliance is encouraged with any medications and followup testing that is ordered. It is a privilege to participate in the urologic care of your patient. If you have any questions or concerns regarding treatment for the above conditions, or other urologic issues, please do not hesitate to contact me. The office telephone contact is [phone]. Sincerely, Dr Jaiden De Jesus MD, [facility] - Urology Compassionate Specialist Care for the Genitourinary System Coding Level of Care Code Est Pt Level 3 (19013) Complex EM visit Add On G2211 Diagnoses Erectile dysfunction due to arterial insufficiency N52.01 Prostate cancer C61
--- OUTSIDE RECORDS SUMMARY | 2024-10-25 09:15 | XMS_ITS | Clinical Summary ---
Author Organization [facility] Address [address] [place] [address] Care Team Providers Care Director Of Preclinical Research Name Role Phone Eveline Boyd MD Primary Care Provider [phone] Allergies Active Allergy Reactions Criticality Noted Date [...] day with meals. 0 Active Abiraterone Acetate ([facility] [id number] abiraterone 250MG tablet) 250 MG TABS Take [...] left subclavian vein 12/25/2022 Overview: Angioplasty 05/2020-Dr. Sarmiento[facility] Knee joint stiffness, bilateral 05/01/2017 Family History [...] 2 - PCV) 12/01/2018 12/01/2017 Influenza Vaccine (Season Ended) 2025 03/01/20 18 RSV Adult > 60+ Yrs or Pregn ant (1 - 1-dose 75+ series) 2025 Hepatitis B Vaccines Aged Out No long er eligible based on patient's age to complete this topic RSV Ped < 20 months Aged Out No longe r eligible based on patient's age to complete this topic Care Teams Director Of Preclinical Research Relationship Specialty Start Date End Date Eveline Boyd MD [address] [place] [address] PCP - General Internal Medicine 03/20/22
== END 2024-10-25 09:23 | disposition home or self-care (01) ==
LOC: HO.HUSH 08:49
PROVIDERS: PCP Hospitalist; Visit Provider Urology
DX: N52.01 Erectile dysfunction due to arterial insufficiency (principal); C61 Malignant neoplasm of prostate; Z13.9 Encounter for screening, unspecified
CPT/HCPCS: 99213

== ENCOUNTER → 2024-10-25 08:48 | Outpatient (BNVA) | payer OTHER, SELFPAY | PROVIDERS: PCP Hospitalist; Visit Provider Urology | DX: C61 Malignant neoplasm of prostate (principal); N52.01 Erectile dysfunction due to arterial insufficiency | CPT/HCPCS: 81003 ==

== ENCOUNTER 2025-04-04 09:51 | Outpatient (REF) | payer MEDICARE, OTHER, SELFPAY ==
[2025-04-04 11:20] LABS: Prostate Specific Antigen < 0.10 ng/mL (<0.05-4.0)
== END 2025-04-04 09:52 | disposition home or self-care (01) ==
LOC: HO.LAB 09:51
PROVIDERS: PCP Hospitalist; Visit Provider Urology
DX: Z12.5 Encounter for screening for malignant neoplasm of prostate (principal); C61 Malignant neoplasm of prostate; C79.51 Secondary malignant neoplasm of bone
CPT/HCPCS: 36415; 84153; 84403

== ENCOUNTER 2025-04-10 08:16 | Outpatient (REF) | payer MEDICARE, OTHER, SELFPAY ==
--- OUTSIDE RECORDS SUMMARY | 2024-02-16 09:38 | XMS_ITS | Encounter Summary ---
Author Organization [facility] [place] [address] Care Team Providers Care Mold Yard Crane Operator Name Role Phone Eveline Boyd MD Primary Care Provider [phone] Encounter Details Date Type Department Care Team (Late st Contact Info) Description 02/16/2024 10:38 AM EDT Hospital Encounter [facility]OR[facility] ENCOUNTERS [facility] CONVERSION ONLY Peña Barragan MD [address] [place] [phone] Social History Tobacco Use Types Packs/Day Years Used Date Smoking Tobacco: Former Smokeless Tobacco: Never Alcohol Use Standard Drinks/Week Comments Yes 0 (1 standard drink = 0.6 oz pur e alcohol) Sex and Gender Information Value Date Recorded Sex Assigned at Male 05/30/2024 11:41 AM EST Legal Sex Male 12:38 PM EST Gender Identity Male 05/30/2024 11:41 AM EST Sexual Orientation Straight 05/30/2024 11 :41 AM EST Travel History Travel Start Travel End Jeanne 02/25/2025 03/28/2025 documented as of this encounter Functional Status * Calculated C-SSRS Risk Score (Lifetime/Recent) Answer Date of Assessment Author No Risk Indicated 03/28/2025 11:11 AM EST uJan Wakefield RN * [place] Suicide Severity Rating Scale (Screener/Recent Self-Report) Question Answer Date of Assessment Author 1. Wish to be (Past 1 Month) No 03/28/2025 11:11 AM Deepali Leigh RN 2. Non-Specific Active Suicidal Thoughts (Past 1 Month) No 03/28/2025 11:11 AM Deepali Leigh RN 6. Suicidal Behavior (Lifetime) No 03/28/2025 11:11 AM Deepali Leigh RN documented as of this encounter Plan of Treatment Upcoming Encounters Date Type Department Care Team (Late st Contact Info) Description 04/12/2025 10:30 AM EST Hospital Encounter [facility] Endoscopy [address] [place] [phone] New Nesbitt MD 299 [facility] [address] [place] [address] 04/19/2025 8:00 AM EST Clinical Support [facility] 154 300 [facility] 154 [place] [phone] 04/19/2025 8:40 AM EST Office Visit [facility] 154 300 [facility] 154 [place] [phone] Mariia Pérez NP [address] [facility] [place] [address] 04/26/2025 9:15 AM EST Office Visit [facility] Hematology Oncology [address] [place] [phone] Destin Mendosa MD [address] [place] [phone] 07/26/2025 9:45 AM EDT Office Visit Pulmonology [facility] 175 [facility] 200 [place] [phone] Brian Rivera MD [address] [place] [phone] 11/09/2025 9:30 AM EDT Ancillary Procedure [facility] Cardiology [facility] - [facility] 154 300 [facility] 154 [place] [phone] documented as of this encounter Goals Goal Patient Goal Type Associated Problems Recent Progress Patient-Stated? Author PT LTGs General No Leonidas Keys, PT Note: Pt will report no pain with lumbar AROM testing - met Pt will transfer quadruped to/from standing independent with no back pain reported to return to gardening - met Pt will be independent with HEP - met documented as of this encounter Visit Diagnoses Not on filedocumented in this encounter Care Teams Mold Yard Crane Operator Relationship Specialty Start Date End Date Eveline Byod MD [address] [place] [phone] PCP - General 03/20/22 documented as of this encounter
--- OUTSIDE RECORDS SUMMARY | 2024-02-23 08:15 | XMS_ITS | Encounter Summary ---
Author Organization [facility] [place] [address] Care Team Providers Care Peg Driver Name Role Phone Eveline Boyd MD Primary Care Provider [phone] Encounter Details Date Type Department Care Team (Late st Contact Info) Description 02/23/2024 9:15 AM EDT Hospital Encounter [facility] H[facility]ORIC ENCOUNTERS [facility] CONVERSION ONLY Peña Barragan MD [address] [place] [phone] Social History Tobacco Use Types Packs/Day Years [...] No Risk Indicated 03/28/2025 11:11 AM EST Juan Wakefield RN * [place] Suicide Severity Rating Scale (Screener/Recent Self-Report) Question Answer Date of Assessment Author 1. Wish to be (Past 1 Month) No 03/28/2025 11:11 AM Deepali Leigh RN 2. Non-Specific Active Suicidal Thoughts (Past 1 Month) No 03/28/2025 11:11 AM Deepali Leigh RN 6. Suicidal Behavior (Lifetime) No 03/28/2025 11:11 AM Deepali Leigh RN documented as of this encounter Procedure Notes * Yumi Rosa NP - 02/23/2024 10:28 AM EDT Procedure Note Encounter Date & Time 02/23/24 10:27 Procedure Note PROCEDURE: Pacemaker pulse generator programming pre and post-MRI, testing pre and post-MRI and monitoring for the duration of MRI. The patient has a Biotronik dual chamber pacemaker. The device was programmed to a DOO mode for the duration of MRI. There were no EKG issues during the MRI. Testing of the device post-MRI did not show any significant change in sensing lead impedances or pacing thresholds. IMPRESSION: Normal device function. YUMI ROSA Feb 23, 2024 10:28 documented in this encounter Plan of Treatment Upcoming Encounters Date Type Department Care Team (Late st Contact Info) Description 04/12/2025 10:30 AM EST Hospital Encounter [facility] Endoscopy [address] [place] [phone] New Nesbitt MD 299 [facility] 419 [place] [address] 04/19/2025 8:00 AM EST Clinical Support [facility] [address] [facility] [address] [place] [phone] 04/19/2025 8:40 AM EST Office Visit [facility] [address] [place] [address] Mariia Pérez NP [address] [place] [address] [place] [address] 04/26/2025 9:15 AM EST Office Visit [facility] Hematology Oncology [address] [place] [address] Hollis-Destin Bloom MD [address] [place] [address] 07/26/2025 9:45 AM EDT Office Visit Pulmonology - [place] 175 [facility] 200 [place] [phone] Brian Rivera MD 230 [place] [phone] 11/09/2025 9:30 AM EDT Ancillary Procedure [facility] - [facility] 154 300 [facility] [address] [place] [address] documented as of this encounter Goals Goal [...] on filedocumented in this encounter Care Teams Peg Driver Relationship Specialty Start Date End Date Eveline Boyd MD [address] [place] [address] PCP - General 03/20/22 documented as of this encounter
--- OUTSIDE RECORDS SUMMARY | 2024-03-15 07:20 | XMS_ITS | Encounter Summary ---
Author Organization [facility] [place] [address] Care Team Providers Care Exhibit Cleaner Name Role Phone Eveline Boyd MD Primary Care Provider [phone] Encounter Details Date Type Department Care Team (Late st Contact Info) Description 03/15/2024 8:20 AM EDT Hospital Encounter TH H[facility]ORIC ENCOUNTERS [facility] CONVERSION ONLY Peña Barragan MD [address] [place] [phone] Social History Tobacco Use Types Packs/Day Years [...] 11:11 AM EST Juan Wakefield RN * [facility] Suicide Severity Rating Scale (Screener/Recent Self-Report) Question [...] Procedure Notes * Yumi Rosa NP - 03/15/2024 9:26 AM EDT Procedure Note Encounter Date & Time 03/15/24 09:25 Procedure Note Pacemaker pulse generator programming pre and post-MRI, [...] thresholds. IMPRESSION: Normal device function. YUMI ROSA Mar 15, 2024 09:26 documented in this encounter Plan of Treatment Upcoming Encounters Date Type Department Care Team (Late st Contact Info) Description 04/12/2025 10:30 AM EST Hospital Encounter [facility] Endoscopy [address] [place] [phone] New Nesbitt MD 299 [facility] 419 [place] [address] 04/19/2025 8:00 AM EST Clinical Support [facility] Cardiology [facility] - [facility] [address] [facility] [address] [place] [phone] 04/19/2025 8:40 AM EST Office Visit [facility] [address] [facility] [address] [place] [address] Mariia Pérez NP [address] [place] [address] [place] [address] 04/26/2025 9:15 AM EST Office Visit [facility] Hematology Oncology [address] [place] [address] Hollis-Destin Bloom MD [address] [place] [address] 07/26/2025 9:45 AM EDT Office Visit Pulmonology - [place] 175 [facility] 200 [place] [phone] Brian Rivera MD 230 [place] [phone] 11/09/2025 9:30 AM EDT Ancillary Procedure [facility] - [facility] 154 300 [facility] 154 [place] [phone] documented as of this encounter Goals Goal [...] on filedocumented in this encounter Care Teams Exhibit Cleaner Relationship Specialty Start Date End Date Eveline Boyd MD [address] [place] [address] PCP - General 03/20/22 documented as of this encounter
--- OUTSIDE RECORDS SUMMARY | 2024-07-08 03:45 | XMS_ITS ---
Author Organization [facility] Address [address] [address] Care Team Providers Care Financial Institution Branch Manager Name Role Phone ANDREY SCHULTZ Primary Care Provider REASON FOR VISIT fatigue Encounters Encounter Location Date Provider Diagnosis [facility] [address] [phone] 07/08/2024 ANDREY SCHULTZ Plan Of Treatment Next Appt Details Provider Name:ANDREY SCHULTZ , 05/02/2025 11:00:00 AM, [address] [place] [address], [place], [phone], Progress Notes * Phani MANRIQUE FDOB: [birth year] (74 yo M)Acc No.[id number]:07/08/2024 Patient: Romero SALVADORn Beth Provider: Janeen SCHULTZ MD :1950 A ge:74 Y S ex:Male Date:07/08/2024 Address:[address] [place], [place] [phone] Subjective: * Chief Complaints: * 1 . Fatigue. * Medical History: Objective: * Vitals: Assessment: Plan: * Treatment: * Images: * Electronic signature of MALENA SCHULTZ MD on 04/10/2025 at 08:23 AM EST Sign off status: Pending * Provider: Janeen SCHULTZ MD Date: 0 07/08/2024 Generated for Jaredi keri/Vic/eTransmitting on: 06/10/2024 08:23 AM EST
--- NOTE | ~2025-04-10 | XR_ITS ---
EXAMINATION: X-ray bilateral knees CLINICAL INFORMATION: Pain COMPARISON: X-ray 08/13/2017 TECHNIQUE: AP bilateral knees one view. 2 views right knee. 2 views left knee. FINDINGS: Right knee: Status post total knee arthroplasty. Expected position and alignment. No acute periprosthetic fracture. No suspicious perihardware lucency. No significant effusion. No abnormal soft tissue calcification. Left knee: Status post total knee arthroplasty. No acute periprosthetic fracture. No suspicious perihardware lucency. Expected position and alignment of the arthroplasty components. No significant effusion. No abnormal soft tissue calcification. XR/XR knee RT 3V IMPRESSION: Right knee: Total knee arthroplasty. No radiographic findings to suggest hardware failure. Left knee: Total knee arthroplasty. No radiographic findings to suggest hardware failure. Electronically signed by: Michael Munoz MD 04/10/2025 12:14 PM [facility]
--- NOTE | ~2025-04-10 | XR_ITS ---
EXAMINATION: X-ray bilateral knees CLINICAL INFORMATION: Pain COMPARISON: X-ray 08/13/2017 TECHNIQUE: AP bilateral knees one view. 2 views right knee. 2 views left knee. FINDINGS: Right knee: Status post total knee arthroplasty. Expected position and alignment. No acute periprosthetic fracture. No suspicious perihardware lucency. No significant effusion. No abnormal soft tissue calcification. Left knee: Status post total knee arthroplasty. No acute periprosthetic fracture. No suspicious perihardware lucency. Expected position and alignment of the arthroplasty components. No significant effusion. No abnormal soft tissue calcification. XR/XR knee LT 3V IMPRESSION: Right knee: Total knee arthroplasty. No radiographic findings to suggest hardware failure. Left knee: Total knee arthroplasty. No radiographic findings to suggest hardware failure. Electronically signed by: Michael Munoz MD 04/10/2025 12:14 PM [facility]
--- OUTSIDE RECORDS SUMMARY | 2025-04-10 08:23 | XMS_ITS | Clinical Summary ---
Author Organization [facility] Address [address] [facility] [address] [place] [id number] Phone Care Team Providers Care Line Servicer Name Role Phone Tim Cullen MD Primary Care Provider Peña Barragan MD Unavailable [phone] Carolyn Dunlap MD, PhD Unavailable [phone] Allergies No known active allergies Medications amLODIPine (NORVASC) 10 MG tablet Take 10 mg by mouth daily. Active apixaban (ELIQUIS) 2.5 mg Take 2.5 mg by mouth 2 (two) times a day. Active carvedilol (COREG) 3.125 MG tablet Take 3.125 mg by mouth 2 (two) times a day with meals. Active ezetimibe (ZETIA) 10 mg tablet Take 10 mg by mouth daily. Active finasteride (PROSCAR) 5 mg tablet Take 5 mg by mouth daily. Active furosemide (LASIX) 20 MG tablet Take 20 mg by mouth. Active montelukast (SINGULAIR) 10 mg tablet Take 10 mg by mouth nightly at bedtime. Active rosuvastatin (CRESTOR) 10 MG tablet Take 10 mg by mouth daily. Active valsartan (DIOVAN) 160 MG tablet Take 160 mg by mouth daily. Active omeprazole (PRILOSEC) 20 MG tablet Take 20 mg by mouth daily. Active Active Problems No known active problems Social History Tobacco Use Types Packs/Day Years Used Date Smoking Tobacco: Never Assessed Child or Family Care Answer Date Record ed Do you have problems with on e of the following making it difficult for you to work, study, or receive health care? No 07/07/2023 Education Answer Date Recorded Are you interested in more education? Not on [place] e 06/02/2023 Are you concerned about learning? Not on file 06/02/2023 No 06/02/2023 No 06/02/2023 Food Answer Date Recorded Within the past 6 months we worried whether our food would run out before we got money to buy more. Never True 07/07/2023 Within the past 6 months the food we bought just didn't last and we didn't have enough money to get more. Never True Residential Stability Answer Date Recor ded What is your housing situation today? I have [place] 07/07/2023 How many times have you move d in the past 12 months? Zero (I did not move) 07/07/2023 Paying for Meds Answer Date Recorded Do you have trouble paying for medicines? No 07/07/2023 Paying Utility Bills Answer Date Record ed Do you have trouble paying your heating or elect ricity bill? No 07/07/2023 Transportation Answer Date Recorded Has the lack of transportati on kept you from medical appointments or from getting medications? No 07/07/2023 Digital Access Answer Date Recorded No 06/02/2023 No 06/02/2023 Reliable internet access at home? Not on file 06/02/2023 Device with a working camera? Not on file Intimate Partner Violence Answer Date R ecorded Are you denied basic needs s uch as food, clothing, or medical care? Deferred 07/27/2023 In the past 12 months have y ou been in a relationship with a person who hurts, threatens, or tries to control you? Deferred 07/27/2023 Are you denied basic needs s uch as food, clothing, or medical care? Deferred 07/27/2023 In the past 12 months have y ou been in a relationship with a person who hurts, threatens, or tries to control you? Deferred 07/27/2023 Sex and Gender Information Value Date Recorded Sex Assigned at Male 05/29/2023 1:36 PM EST Legal Sex Male 4:19 PM EDT Gender Identity Male 05/29/2023 1:36 PM EST Sexual Orientation Not on file Last Filed Vital Signs Vital Sign Reading Time Taken Comments Blood Pressure 120/64 07/07/2023 11:52 AM EST Pulse 71 07/07/2023 11:52 AM EST Temperature 36.1 C (97 F) 07/07/2023 11:49 AM EST Respiratory Rate 18 07/07/2023 11:49 AM EST Oxygen Saturation 94% 07/07/2023 11:52 AM EST Inhaled Oxygen Concentration - - Weight 103 kg (227 lb 1.2 oz) 07/07/2023 11:49 A M EST Height 170 cm (5' 6.93 ) 06/25/2023 1:06 PM EST Body Mass Index 35.64 06/25/2023 1:06 PM EST Plan of Treatment Health Maintenance Due Date Last Done Comments Adult Td,Tdap Booster 1950 CREATININE LEVEL 1950 POTASSIUM LEVEL 1950 SMOKING Hx and SMOKELESS TOBACCO SCREENING 1963 COLOGUARD 1995 COLONOSCOPY 1995 COLORECTAL CANCER SCREENING 1995 FIT TEST 1995 FOBT 1995 SIGMOIDOSCOPY 1995 VIRTUAL COLONOSCOPY 1995 LIPID PANEL 06/09/2024 06/09/2019 DEPRESSION SCREENING 07/26/2024 07/27/2023 INFLUENZA VACCINE (#1) 2024 , 01/26/2023, 03/03/2022, Additional history exists COVID-19 VACCINE ( season) 2025 02/09/2024, 02/15/2023, 02/05/2022, Additional history exists RSV VACCINE (1 - 1-dose 75+ series) 2025 HEPATITIS C SCREENING Completed 01/29/2018 ZOSTER VACCINES Completed 03/23/2019, 06/01/2018 PNEUMOCOCCAL VACCINES (50+ years) Completed 03/27/2019, 12/01/2017 HEPATITIS A VACCINES Aged Out 02/23/2023 No long er eligible based on patient's age to complete this topic HIB VACCINES Aged Out No longer eligi ble based on patient's age to complete this topic MENINGOCOCCAL VACCINES (ACWY) Aged Out No longer eligible based on patient's age to complete this topic MENINGOCOCCAL VACCINES (B) Aged Out N o longer eligible based on patient's age to complete this topic Medical Devices Implanted Type Area Terminal Make Up Operator Device Identifier Shelf Expiration Date Model / Serial / Lot Pacemaker-2019 Implanted:08/04 (Quantity not on file) Pacemaker [employer] ENDORA 8 DR-T / [id number] / Insurance MEDICARE PART A & B [facility] MEDICARE SUPPLEMENT MEDICARE PART A & [facility] [employer] MEDICARE SUPPLEMENT MEDICARE PART A & B Member Subscriber Plan / Payer ( fective 2016-Present) Name:Romero Navasn Member ID:[id number] Relation to Subscriber:Self Name:Phani Navas Subscriber ID:[id number] Payer ID:[id number] Group ID:Not on file Type:Medicare Address: [place] [address] [facility] MEDIC[facility] SUPPLEMENT MEDICARE PART A & B [facility] EXTENSION MEDICARE SUPPLEMENT MEDICARE PART A & B [facility] EXTENSION MEDICARE SUPPLEMENT MEDICARE PART A & B [employer] MEDICARE SUPPLEMENT MEDICARE PART A & B [employer] MEDICARE SUPPLEMENT MEDICARE PART A & B MEDICARE SUPPLEMENT MEDICARE PART A & B Member Subscriber Plan / Payer ( fective 2016-Present) Name:Romero Naavsn Member ID:[id number] Relation to Subscriber:Self Name:Romero Navasn Subscriber ID:[id number] Payer ID:[id number] Group ID:Not on file Type:Medicare Address: [place] [address] [place] [phone] [facility] SUPPLEMENT Care Teams Line Servicer Relationship Specialty Start Date End Date Tim Cullen MD [address] [place] [id number] PCP - General Internal Medicine 12/10/18 Peña Barragan MD [address] [place] [id number] [email or web address] 06/25/23 Carolyn Dunlap MD, PhD [address] [place] [id number] [email or web address] 07/09/23 Additional Source Comments The information contained in this document represents components of the legal health record. It is not the complete legal health record.[facility]
--- OUTSIDE RECORDS SUMMARY | 2025-04-10 08:23 | XMS_ITS | Clinical Summary ---
Author Organization [facility] Address [address] [place] [address] Care Team Providers Care Client Relation Specialist Name Role Phone Eveline Boyd MD Primary Care Provider [phone] Allergies Active Allergy Reactions Criticality Noted Date [...] day with meals. 0 Active Abiraterone Acetate ([facility] [id number] abiraterone 250MG tablet) 250 MG TABS Take [...] left subclavian vein 12/25/2022 Overview: Angioplasty 05/2020-[facility] Knee joint stiffness, bilateral 05/01/2017 [...] 98 02/03/2024 10:39 AM EDT Temperature 36.8 C (98.2 F) 02/03/2024 10:39 AM EDT Respiratory Rate - - Oxygen Saturation 100% [...] - PCV) 12/01/2018 12/01/2017 Influenza Vaccine (#1) 2025 03/01/2018 RSV Adult > 60+ Yrs or Pregn ant (1 - 1-dose 75+ series) 2025 Hepatitis B Vaccines Aged Out No long er eligible based on patient's age to complete this topic RSV Ped < 20 months Aged Out No longe r eligible based on patient's age to complete this topic Care Teams Client Relation Specialist Relationship Specialty Start Date End Date Eveline Boyd MD [address] [place] [address] PCP - General Internal Medicine 03/20/22
--- OUTSIDE RECORDS SUMMARY | 2025-04-10 08:23 | XMS_ITS | Clinical Summary ---
Author Organization [facility] Address [address] [place] [address] Phone Care Team Providers Care Dope Weigh Operator Name Role Phone Eveline Boyd MD Primary Care Provider [phone] Allergies Active Allergy Reactions Criticality Noted Date Comments Hydrochlorothiazide 07/16/2023 Nsaids (Non-Steroidal Anti-I nflammatory Drug) 05/01/2017 Medications albuterol HFA (PROAIR HFA ; PROVENTIL HFA ; VENTOLIN HFA) 90 mcg/actuation inhaler Inhale 2 puffs by mouth every 6 hours as needed for wheezing or shortness of breath. 2 Active carvediloL (COREG) 3.125 mg tablet Take 1 tablet (3.125 mg total) by mouth 2 (two) times a day with meals. 3 Active ezetimibe (ZETIA) 10 mg tablet Take 1 tablet (10 mg total) by mouth 1 (one) time each day. 0 Active omeprazole (PriLOSEC) [address] capsule Take 1 capsule (20 mg total) by mouth 1 (one) time each day. Active valsartan (DIOVAN) 160 mg tablet Take 1 tablet (160 mg total) by mouth 1 (one) time each day. Active latanoprost (XALATAN) 0.005 % ophthalmic solution Administer 1 drop into the right eye at bedtime. 4 Active rosuvastatin (CRESTOR) 40 mg tablet Take 1 tablet (40 mg total) by mouth 1 (one) time each day. Active tadalafiL (CIALIS) 5 mg tablet Take 1 tablet (5 mg total) by mouth 1 (one) time each day. Active tamsulosin (FLOMAX) 0.4 mg 24 hr capsule Take 1 capsule (0.4 mg total) by mouth 1 (one) time each day with breakfast. Capsules should be taken 30 minutes following the same meal each day. Active furosemide (LASIX) 20 mg tablet Take 1 tablet (20 mg total) by mouth 1 (one) time each day. 90 tablet 3 5 Active tirzepatide (ZEPBOUND SUBQ) Inject under the skin. Active potassium chloride (KLOR-CON M10) 10 mEq CR tablet Take 1 tablet (10 mEq total) by mouth 1 (one) time each day. Tablet may be swallowed whole (do not crush/chew/suck on) OR broken in half and each half swallowed separately OR dissolved (whole tablet) in ~4 ounces of water (allow ~2 minutes to dissolve, stir well and administer immediately). 90 each 3 5 026 Active apixaban (Eliquis) 5 mg tablet TAKE 1 TABLET BY MOUTH TWICE A DAY 180 tablet 3 5 Active dapagliflozin propanediol (Farxiga) 10 mg tablet TAKE 1 TABLET DAILY 90 tablet 3 5 Active ipratropium (ATROVENT) 21 mcg (0.03 %) nasal sprayIndications :Mild intermittent asthma, uncomplicated,Co ugh, unspecified SPRAY 2 SPRAYS BY NASAL ROUTE 3 TIMES DAILY NEEDED FOR RHINITIS FOR UP TO 30 DAYS. 18 mL 5 Active polyethylene glycol (Golytely) 236-22.74-6.74 -5.86 gram solution Take 4L by mouth once for one dose. May substitue any PEG. Starting at 2PM the day before your procedure drink 1 8oz glasses at your own pace until you complete half of the gallon. Finish 2nd half of the gallon at 8PM. 4000 mL 5 Active bisacodyL (DULCOLAX) 5 mg EC tablet Take 2 tablets by mouth right before beginning bowel prep. See instructions provided by the office 2 tablet 11/19/202 5 Active acoramidis 356 mg tabletIndication s:Wild-type transthyretin-re lated (ATTR) amyloidosis ([facility] V24, CMS/HCC V28) Take 712 mg by mouth 2 (two) times a day. 360 tablet 3 5 026 Active Hospital, Clinic, or Other Facility Administered Medication Ordered Dose Route Frequency Start Date End Date Status TC-99M oxidronate radio-isotope injection 18.8 millicurie 18.8 millicurie IV Once in imaging 04/03/2025 04/03/2025 Ende d Active Problems Problem Noted Date Diagnosed Date Paroxysmal atrial fibrillation ([facility] V24, [facility] V28) 03/24/2024 Overview (03/24/2024): Paroxysmal atrial fibrillation [...] heart failure with p reserved ejection fraction ([facility] V24, CMS/[facility] V28) 03/24/2024 Overview (03/24/2024): HFpEF with lower [...] weight loss. Continue current medications Prostate cancer ([facility] V24, CMS/[facility] V28) 06/16 DVT of deep femoral vein, right ([facility] V24, CM S/[facility] V28) 12/25/2022 Stenosis of left subclavian vein 12/25/2022 Overview (07/16/2023): Angioplasty 05/2020-[facility] Knee joint stiffness, bilateral 05/01/2017 Encounters Date Type Department Care Team Description 04/07/2025 Telephone [facility] Cardiology [facility] [address] [place] [address] Mariia Pérez, CLOTH MENDER 04/07/2025 Telephone [facility] Cardiology [facility] - [address] [place] [address] Mariia Pérez, CLOTH MENDER 04/06/2025 Telephone Gastroenterology - [address] [place] [address] Katiana Loja MA 04/06/2025 Results Follow-Up [facility] Cardiology [facility] - [address] [place] [address] Mariia Pérez, CLOTH MENDER 04/05/2025 Telephone Gastroenterology - [place] [address] [place] [phone] Alex Rebollar DO 04/04/2025 1:30 PM EST Office Visit [facility] Hematology Oncology [address] [place] [address] Myrna Carvalho PA Prostate cancer (CMS/HCC V24, CMS/HCC V28) (Primary Dx); DVT of deep femoral vein, right (CMS/HCC V24, CMS/HCC V28); Stenosis of left subclavian vein; Paroxysmal atrial fibrillation (CMS/HCC V24, CMS/HCC V28); Black stools 04/03/2025 8:30 AM EST Ancillary Procedure [facility] - [address] [place] [phone] Other cardiomyopathy (CMS/HCC V24, CMS/HCC V28) 03/31/[address] [facility] Hematology Oncology [address] [place] [address] Nimoramonia-Iy Destin morgan MD 03/28/2025 11:41 AM EST - 03/28/2025 2:[address] [facility] Emergency [address] [place] [address] Melena (Primary Dx) Discharge Disposition: Home or Self Care 03/16/2025 Telephone [facility] Cardiology [facility] - [address] [place] [address] Hank Garg MD 01/12/2025 3:15 PM EDT Office Visit [facility] Hematology Oncology [address] [place] [phone] Wenonia-Iy Destin morgan MD Prostate cancer (CMS/HCC V24, CMS/HCC V28) (Primary Dx); DVT of deep femoral vein, right (CMS/HCC V24, CMS/HCC V28); Stenosis of left subclavian vein; Paroxysmal atrial fibrillation (CMS/HCC V24, CMS/HCC V28) from Last 3 Months Immunizations Immunization Administration Dates Next Due Hepatitis A Adult (Havrix; V aqta) 19yo and older 02/23/2023 Influenza Quadravalent, 0.5m l (Fluad) 65yo and older 01/26/2023,03/03/2022,01/30/2021,01/18 Influenza trivalent, 0.5mL ( Fluad) 65yo and older 01/10/2024 Influenza trivalent, 0.5mL ( Fluzone High-dose) 65yo and older 01/29/2025,02/22/2019,03/01/2018 Pneumococcal conjugate 13 va lent (Prevnar 13, PCV13) 2mo and older 03/27/2019,12/01/2016 Pneumococcal polysaccharide 23 valent (Pneumovax 23) 2yo and older 12/01/2017 RSV, bivalent, protein subun it RSVpreF, 0.5mL, Preservative Free (Arexvy) 50yo and older 02/11/2025 Tdap Tetanus diptheria acell ular pertussis (Boostrix; Adacel) 7yo and older 09/02/2024 Zoster Live 04/01/2019 Zoster recombinant (Shingrix ) 19yo and older 03/23/2019,06/01/2018 Surgical History Surgery Date Site/Laterality Comments JOINT REPLACEMENT PROCEDURE:JOINT REPLACEMENT CARDIAC PACEMAKER PLACEMENT PROCEDURE:CARDIAC PACEMAKER PLACEMENT HERNIA REPAIR PROCEDURE:HERNIA REPAIR COLONOSCOPY PROCEDURE:COLONOSCOPY VARICOSE VEIN SURGERY PROCEDURE:VARICOSE VEIN SURGERY Medical History Medical History Date Comments High cholesterol DX:High cholest gerry Hypertension DX:Hypertension Prostate cancer ([facility] V24 , [facility] V28) DX:Prostate cancer ([facility]) DVT (deep venous thrombosis) ([facility] V24, [facility] V28) DX:DVT (deep venous thrombos is) ([facility]);COMMENT:R LEG 12/2018 Family History Medical History Relation [...] EST Travel History Travel Start Travel End [place] 02/25/2025 03/28/2025 Obstetrics History Last Filed Vital Signs Vital Sign Reading Time Taken Comments Blood Pressure 123/70 04/04/2025 1:30 PM EST Pulse 69 04/04/2025 1:30 PM EST Temperature 36.8 C (98.3 F) 04/04/2025 1:30 PM EST Respiratory Rate 16 03/28/2025 11:14 AM EST Oxygen Saturation 98% 04/04/2025 1:30 PM EST Inhaled Oxygen Concentration - - Weight 101 kg (222 lb) 04/04/2025 1:30 PM EST Height 172.7 cm (5' 8 ) 04/04/2025 1:30 PM EST Body Mass Index 33.75 04/04/2025 1:30 PM EST Plan of Treatment Upcoming Encounters Date Type Department Care Team (Late st Contact Info) Description 04/12/2025 10:30 AM EST Hospital Encounter [facility] Endoscopy [address] [place] [phone] New Nesbitt MD [address] [facility] [address] [place] [address] 04/19/2025 8:00 AM EST Clinical Support [facility] Cardiology [facility] - [facility] [address] [facility] [address] [place] [phone] 04/19/2025 8:40 AM EST Office Visit [facility] - [facility] [address] [facility] [address] [place] [phone] Mariia Pérez NP [address] [place] [address] [address] [place] [address] 04/26/2025 9:15 AM EST Office Visit [facility] Hematology Oncology [address] [place] [phone] Destin Mendosa MD [address] [place] [phone] 07/26/2025 9:45 AM EDT Office Visit Pulmonology - [place] [address] [facility] [address] [place] [phone] Brian Rivera MD [facility] [place] [address] 11/09/2025 9:30 AM EDT Ancillary Procedure [facility] - [address] [facility] [address] [place] [phone] Health Maintenance Due Date Last Done Comments Colorectal Cancer Screening: Colonoscopy 1950 Abdominal Aortic Aneurysm (AAA) Screen 04/26/2022 Cholesterol Screening (Lipid Panel) 04/26/2022 Falls Risk Assessment 04/26/2022 Hepatitis C Screening 04/26/2022 Social Influencers of Health Screening 04/26/2022 Depression Screening 05/18/2024 Medicare Annual Wellness Visit 02/08/2025 02/09/2024 COVID-19 Vaccine ( season) 2025 02/03/2025, 02/09/2024, 02/15/2023, Additional history exists Hypertension/CHF/CAD Annual BMP Blood Test 03/28/2026 03/28/2025, 11/29/2024, 11/06/2024, Additional history exists DTaP,Tdap,and Td Vaccines (2 - Td or Tdap) 09/02/2034 09/02/2024 Pneumococcal Vaccine: 50+ Years Completed 03/27/2019, 12/01/2017, 12/01/2016 Zoster Vaccines Completed 04/01/2019, 10/2018, 06/01/2018 Hepatitis A Vaccines Aged Out 02/23/2023 No long er eligible based on patient's age to complete this topic Influenza Vaccine Completed 01/29/2025, , 01/26/2023, Additional history exists RSV Immunization Adult Patients Completed 02/11/2025 HIB Vaccines Aged Out No longer eligi [...] will be independent with HEP - met Autogenerated Goal Care Plan Autogenerated Problem No [employer] Implanted Type Area Director Of Intelligence Device Identifier Shelf Expiration Date Model / Serial / Lot [employer] Edora 8 Anahy [id number] Implanted:07/17 (Quantity not on file) Cardiac Pacemaker [employer] EDORA 8 ANAHY / [id number] / Procedures Procedure Name Priority Date/Time Associated Diagnosis Comments NM CARDIAC AMYLOID STUDY W/ CT Routine 04/03/2025 12:10 PM EST Other cardiomyopathy (CMS/HCC V24, CMS/HCC V28) CBC WITH AUTO DIFFERENTIAL STAT 03/28/2025 11:34 AM EST PROTHROMBIN TIME WITH INR STAT 03/28/2025 11:34 AM EST ACTIVATED PARTIAL THROMBOPLASTIN TIME STAT 03/28/2025 11:34 AM EST TYPE AND SCREEN STAT 03/28/2025 11:34 AM EST COMPREHENSIVE METABOLIC PANEL STAT 03/28/2025 11:34 AM EST CBC AND DIFFERENTIAL STAT 03/28/2025 11:34 AM EST from Last 3 Months Results * NM CARDIAC AMYLOID STUDY W/ CT (04/03/2025 12:10 PM EST) Target HR 124 bpm CV PACS STRESS BSA 2.21 m2 CV PACS STRESS Anatomical Region Laterality Modality Nuclear Medicine Narrative 04/03/2025 5:44 PM EST Increased cardiac isotope uptake has a high predictive value for the presence of transthyretin amyloidosis. AL amyloidosis cannot be completely ruled out without lab work. [facility] [address] [facility], [address], [place] [address] TEL: FAX: Name: Xin Navas Date of exam: 04/03/25 : 1950 Gender: male Ordering provider: Mariia Pérez NP TEST TYPE: 99mTechnetium-Pyrophosphate Cardiac Amyloidosis Performed by: Kaelyn Hernández MD INDICATION: LVH, HFpEF, afib, CTS PRIOR CARDIACTESTING: Echo TECHNIQUE: The patient was given an IV injection of 18.8 mCi of 99mTc-PYP. Three hours after injection they under went planar and SPECT/CT imaging. Planar imaging was done in the anterior and lateral position and 750,000 counts were obtained. FINDINGS: The overall image quality was good. Bone uptake was seen. No significant hot spots were seen. The H/CL ratio is 1.97. The visual scan of the images revealed diffuse uptake on SPECT/CT imaging. The semi-quantitative findings revealed Grade 3. CONCLUSIONS: The 99mTc-PYP revealed findings that are strongly suggestive of TTR amyloidosis. There is positive diffuse myocardial uptake on SPECT/CT and the visual score is 3. The H/CL ratio is greater than or equal to 1.3. Evaluation by serum free light chains and serum/urine immunofixation should be done in all patients as any degree of uptake can be seen in AL amyloid No uptake or equivocal results could represent AL amyloid or early ATTR cardiac amyloid Results should be interpreted in the context of prior evaluation and referral to manager market development or amyloid expert is recommended if either: A: the echo and/or CMR is strongly suggestive of cardiac amyloidosis and PYP is not or is equivocal (biopsy may be indicated) B: and/or free light chains are abnormal or equivocal Nuclear Study Quality Risk factors include: age greater than 40 and male. Time of first imaging occurred at 180 min. Overall image quality is good. Imaging technique: planar and SPECT. Amyloidosis Study TC-99m Oxidronate (Tc HDP) given. H/CL ratio is 1.97. A ratio of >1.6 is highly suggestive of TTR amyloidosis. Mariia Pérez NP CV STRESS PROCEDURES Final R esult * (ABNORMAL) CBC auto differential (03/28/2025 11:34 AM EST) WBC 2.5(L) 4.8 - 10.8 K/mcL LAB HEMETOLOGY METHOD 03/28/2025 12:15 PM [facility] RBC 4.00(L) 4.50 - 5.50 M/mcL LAB HEMETOLOGY METHOD 03/28/2025 12:15 PM [facility] Hemoglobin 14.0 13.5 - 17.5 g/dL LAB HEMETOLOGY METHOD 03/28/2025 12:15 PM [facility] Hematocrit 40.4(L) 42.0 - 54.0 % LAB HEMETOLOGY METHOD 03/28/2025 12:15 PM [facility] MCV 100.0(H) 79.0 - 98.0 FL LAB HEMETOLOGY METHOD 03/28/2025 12:15 PM [facility] MCH 34.7(H) 27.0 - 32.0 pcg LAB HEMETOLOGY METHOD 03/28/2025 12:15 PM [facility] MCHC 34.7 32.0 - 37.0 g/dL LAB HEMETOLOGY METHOD 03/28/2025 12:15 PM [facility] RDW 13.1 11.0 - 15.0 % LAB HEMETOLOGY METHOD 03/28/2025 12:15 PM [facility] Platelets 140 130 - 400 K/mcL LAB HEMETOLOGY METHOD 03/28/2025 12:15 PM [facility] MPV 9.5 7.0 - 11.0 FL LAB HEMETOLOGY METHOD 03/28/2025 12:15 PM [facility] NRBC 0.0 <1.0 % LAB HEMETOLOGY METHOD 03/28/2025 12:15 PM [facility] NRBC Absolute 0.00 <0.10 K/mcL LAB HEMETOLOGY METHOD 03/28/2025 12:15 PM [facility] Neutrophils Relative 60.6 % LAB HEMETOLOGY METHOD 03/28/2025 12:15 PM [facility] Lymphocytes Relative 20.5 % LAB HEMETOLOGY METHOD 03/28/2025 12:15 PM [facility] Monocytes Relative 16.5 % LAB HEMETOLOGY METHOD 03/28/2025 12:15 PM [facility] Eosinophils Relative 1.2 % LAB HEMETOLOGY METHOD 03/28/2025 12:15 PM [facility] Basophils Relative 0.8 % LAB HEMETOLOGY METHOD 03/28/2025 12:15 PM [facility] Immature Granulocytes Relative 0.4 % LAB HEMETOLOGY METHOD 03/28/2025 12:15 PM [facility] Neutrophils Absolute 1.51 1.50 - 7.00 K/mcL LAB HEMETOLOGY METHOD 03/28/2025 12:15 PM [facility] Lymphocytes Absolute 0.51(L) 1.00 - 5.00 K/mcL LAB HEMETOLOGY METHOD 03/28/2025 12:15 PM [facility] Monocytes Absolute 0.41 0.20 - 1.00 K/mcL LAB HEMETOLOGY METHOD 03/28/2025 12:15 PM [facility] Eosinophils Absolute 0.03 0.00 - 0.50 K/mcL LAB HEMETOLOGY METHOD 03/28/2025 12:15 PM EST [facility] Basophils Absolute 0.02 0.00 - 0.20 K/[facility] LAB HEMETOLOGY METHOD 03/28/2025 12:15 PM EST [facility] Immature Granulocytes Absolute 0.01 0.00 - 0.03 K/[facility] LAB HEMETOLOGY METHOD 03/28/2025 12:15 PM EST [facility] Blood Venous blood specimen / Unknown Venipuncture / Unknown 03/28/2025 11:34 AM EST 03/28/2025 11:56 AM EST us Riddhi Mares MD LAB BLOOD ORDERABLES Final Res ult Performing Organization Address City/[facility]/ZIP Co de Phone Number [facility] [address] [place] [address], [place] [phone] * APTT (03/28/2025 11:34 AM EST) aPTT 33.8 24.1 - 39.3 sec LAB COAGULATION METHOD 03/28/2025 12:14 PM EST [facility] Blood Venous blood specimen / Unknown Venipuncture / Unknown 03/28/2025 11:34 AM EST 03/28/2025 11:57 AM EST us Riddhi Mares MD LAB BLOOD ORDERABLES Final Res ult [facility] [address] [place] [address], [place] [phone] * (ABNORMAL) Prothrombin time with INR (03/28/2025 11:34 AM EST) Protime 15.7(H) 10.6 - 13.9 sec LAB COAGULATION METHOD 03/28/2025 12:14 PM EST [facility] INR 1.3 LAB COAGULATION METHOD 03/28/2025 12:14 PM EST [facility] Blood Venous blood specimen / Unknown Venipuncture / Unknown 03/28/2025 11:34 AM EST 03/28/2025 11:57 AM EST us Riddhi Mares MD LAB BLOOD ORDERABLES Final Res ult Performing Organization Address [facility]/ZIP Co de Phone Number [facility] [address] [place] [address], [place] [phone] * Type and screen (03/28/2025 11:34 AM EST) Pathologist [facility] ABO Group A 03/28/2025 12:45 PM EST [facility] Rh Type Positive 03/28/2025 12:45 PM EST [facility] Antibody Screen Negative 03/28/2025 12:45 PM EST [facility] Blood Venous blood specimen / Unknown Venipuncture / Unknown 03/28/2025 11:34 AM EST 03/28/2025 11:56 AM EST us Riddhi Mares MD LAB BLOOD BANK TEST ORDERABLES Final Result Performing Organization Address [facility]/ZIP Co de Phone Number [facility] [address] [place] [address], [place] [phone] * Comprehensive metabolic panel (03/28/2025 11:34 AM EST) Sodium 133 133 - 145 mmol/L LAB CHEMISTRY METHOD 03/28/2025 12:52 PM EST [facility] Potassium 3.7 3.5 - 5.5 mmol/L LAB CHEMISTRY METHOD 03/28/2025 12:52 PM EST [facility] Chloride 100 96 - 110 mmol/L LAB CHEMISTRY METHOD 03/28/2025 12:52 PM [facility] CO2 26 21 - 32 mmol/L LAB CHEMISTRY METHOD 03/28/2025 12:52 PM [facility] Anion Gap 7 3 - 11 LAB CHEMISTRY METHOD 03/28/2025 12:52 PM [facility] Glucose 88 70 - 100 mg/dL LAB CHEMISTRY METHOD 03/28/2025 12:52 PM [facility] BUN 9 5 - 25 mg/dL LAB CHEMISTRY METHOD 03/28/2025 12:52 PM [facility] Creatinine 0.75 0.70 - 1.30 mg/dL LAB CHEMISTRY METHOD 03/28/2025 12:52 PM [facility] eGFR 95 >=60 mL/min/1. 73m2 LAB CHEMISTRY METHOD 03/28/2025 12:52 PM [facility] Comment:Calculation based on the Chronic Kidney Disease Epidemiology Collaboration (CKD-EPI) equation refit without adjustment for race. BUN/Creatinine Ratio 12.0 LAB CHEMISTRY METHOD 03/28/2025 12:52 PM [facility] Calcium 8.6 8.5 - 10.5 mg/dL LAB CHEMISTRY METHOD 03/28/2025 12:52 PM [facility] AST (SGOT) 24 10 - 42 unit/L LAB CHEMISTRY METHOD 03/28/2025 12:52 PM [facility] ALT (SGPT) 39 10 - 60 unit/L LAB CHEMISTRY METHOD 03/28/2025 12:52 PM [facility] Alkaline Phosphatase 74 42 - 121 unit/L LAB CHEMISTRY METHOD 03/28/2025 12:52 PM [facility] Total Protein 6.5 6.0 - 8.0 g/dL LAB CHEMISTRY METHOD 03/28/2025 12:52 PM [facility] Albumin 3.6 3.2 - 5.0 g/dL LAB CHEMISTRY METHOD 03/28/2025 12:52 PM [facility] Total Bilirubin 0.9 0.0 - 1.4 mg/dL LAB CHEMISTRY METHOD 03/28/2025 12:52 PM [facility] Blood Venous blood specimen / Unknown Venipuncture / Unknown 03/28/2025 11:34 AM EST 03/28/2025 11:57 AM EST us Riddhi Mares MD LAB BLOOD ORDERABLES Final Res ult [facility] ([facility] [address] [place] [address], from Last 3 Months Additional Health Concerns Active Problems Noted Date Diagnosed Date Autogenerated Problem 04/05/2025 Insurance MEDICARE [facility] Care Teams Dope Weigh Operator Relationship Specialty Start Date End Date Eveline Boyd MD [address] [place] [address] PCP - General 03/20/22
--- OUTSIDE RECORDS SUMMARY | 2025-04-10 08:24 | XMS_ITS | Patient Health Record ---
Author Organization [facility] Address [address] [place] [address] Care Team Providers Care Abrasive Mixer Name Role Phone ANDREY SCHULTZ Primary Care Provider [phone] Allergies Allergen (clinical drug ingredient) Drug/Non Drug Allergy documented on EMR Reaction Allergy Type Onset Date Status aspirin Aspirin Unknown Drug Allergy Active Motrin Unknown Drug Allergy Active hydrochlorothiazide Hydrochlorothiazide Unknown Drug Aller gy Active Non-steroidal anti-inflammatory agent (FN) NSAIDs Unknown Drug Allergy Active Results Component Value Reference Range Notes TESTOSTERONE, TOTAL Reviewed date:11/30/2024 07:48:58 AM Interpretation: Performing Lab: Notes/Report: Testosterone <7 229-902 ng/dL PROSTATE SPECIFIC ANTIGEN DI AGNOSTIC Reviewed date:11/30/2024 07:48:55 AM Interpretation: Performing Lab: Notes/Report: The Siemens Advia Centaur Chemiluminescent Immunoassay is used. Results obtained with different assay methods or kits cannot be used interchangeably. Results cannot be interpreted as absolute evidence of the presence or absence of malignant disease. PSA <0.06 0.00-4.00 ng/mL B-TYPE NATRIURETIC PEPTIDE Reviewed date:06/03/2024 07:55:51 AM [...] BUN/Creatinine Ratio 13.4 Calcium 8.5 8.5-10.5 mg/dL KAPPA-LAMBDA LIGHT CHAINS, F REE WITH RATIO, URINE Reviewed date:12/04/2024 01:20:07 PM Interpretation: Performing Lab: Notes/Report: [place] Light Chain Free Urine 72.67 <=32.90 mg/L Lambda Light Chain Free Urine 25.92 <=3.79 mg/L [place] Lambda Ratio Free Urine 2.80 <=8.69 If free light chain results do not agree with other clinical or laboratory findings, repeat testing on a diluted sample to rule out antigen excess may be requested. Test Performed by [facility], [employer] [facility], [address] [place] [address] Kal Gudino M.D., Ph.D., Director of Laboratories , CLIA [id number] VITAMIN D 1,25 DIHYDROXY Reviewed date:12/04/2024 01:20:15 PM Interpretation: Performing Lab: Notes/Report: Vitamin D, 1, 25-Dihydroxy 54 20-79 pg/mL Vitamin D 1, 25 dihydroxy levels should be primarily used to assess Vitamin D status in patients with renal disease and hypercalcemia. Vitamin D 1,25-dihydroxy levels are generally less than 5 pg/mL in end stage renal disease patients. The preferred initial test for assessing Vitamin D status in the general population is Vitamin D 25-hydroxy (VITD). Test performed at [facility], [facility] [address] Mary Skinner MD, PhD - Blow Torch Operator IMMUNOFIXATION, URINE Reviewed date:12/01/2024 04:53:33 PM Interpretation: Performing Lab: Notes/Report: Immunofixation Electrophoresis, Urine No monoclonal immunoglobulins detected. IMMUNOFIXATION ELECTROPHORES IS Reviewed date:12/01/2024 04:53:25 PM Interpretation: Performing Lab: Notes/Report: Immunofixation Result, Serum No monoclonal immunoglobulins detected. PATHOLOGIST REVIEW IMMUNOFIX ATION Reviewed date:12/01/2024 04:53:30 PM Interpretation: Performing Lab: Notes/Report: Pathologist Interpretation KAPPA-LAMBDA QUANTITATIVE FR EE LIGHT CHAINS Reviewed date:12/02/2024 02:19:37 PM Interpretation: Performing Lab: Notes/Report: [place] Free Light Chain 2.24 0.33-1.94 mg/dL Lambda Free Light Chain 2.11 0.57-2.63 mg/dL [place]/Lambda FLC Ratio 1.06 0.26-1.65 Test performed at [facility], [address], [place] [address] Mary Skinner MD, PhD - Blow Torch Operator CT CHEST/ABDOMEN/PELVIS W CO NTRAST Reviewed date:11/13/2024 10:22:15 AM Interpretation: Performing Lab: Notes/Report: Note See Note [facility], a member of [employer] Patient Name: XIN NAVAS Date of : 1950 Reason for Exam: Prostate cancer, monitor Exam Date: 10/26/2024 [id number] EST Report Status: Final Ordering Provider: DINESH BARRAGAN PCP: ANDREY SCHULTZ PROCEDURE: Chest, abdomen, pelvis CT INDICATION: Prostate cancer TECHNIQUE: Chest, abdomen and pelvis CT following the intravenous administration of 90cc ISOVUE 370. Multiplanar reformats were created and interpreted. The examination was performed utilizing dose reduction techniques. Total DLP 1994 COMPARISON: 4 and 04/29/2023 FINDINGS: CT CHEST: LUNGS/PLEURA: Centra l airways are patent. 3 mm subpleural nodule in the right lower lobe is stable compared to prior. No new or suspicious pulmonary nodules. Bibasilar atelectasis/scarring. No pleural effusion or pneumothorax. MEDIASTINUM: Thyroid gland is normal. No mediastinal or hilar lymphadenopathy. Small hiatal hernia. Biatrial dilation. Pacemaker leads terminate in the right atrium and right ventricle. No pericardial effusion. No significant coronary artery calcifications. No central pulmonary arterial emboli CHEST WALL: No axill cassidy lymphadenopathy or superficial hematoma. Left chest wall pacemaker generator. BONES: T3 sclerotic lesion is unchanged. No new lytic or blastic lesions. No fracture. Degenerative changes seen throughout the spine. CT ABDOMEN AND PELVIS: HEPATOBILIARY: No fo melania liver lesions. Gallbladder and biliary tree are within normal limits. SPLEEN: No splenomegaly. PANCREAS: No focal m ass or ductal dilatation. ADRENALS: No nodules. KIDNEYS/URETERS: No hydronephrosis, stones, or solid mass. Left renal cortical atrophy. Bilateral renal cysts. PELVIC ORGANS/BLADDE R: Fiducial markers within the prostate. No pelvic lymphadenopathy. Bladder is decompressed and within normal limits. PERITONEUM / RETROPERITONEUM: No ascites or free air. No retroperitoneal lymphadenopathy. VESSELS: Portal vein is patent. Abdominal aorta is normal in size. GI TRACT: No bowel obstruction or wall thickening. BONES AND SOFT TISSU ES: Left inguinal hernia repair with Prolene plug in place. No superficial soft tissue mass or inguinal lymphadenopathy. No suspicious lytic or blastic lesions. Lower lumbar facet arthritis. IMPRESSION: Unchanged T3 sclerot ic metastasis. No new metastatic disease in the chest, abdomen, or pelvis. -------- FINAL REPOR T -------- Dictated By: KARL KHAN Dictated Date: 10/26/2024 09:07 ET Assigned Physician: KARL KHAN Reviewed and Electronically Signed By: KARL KHAN Signed Date: 025 09:39 ET Workstation ID: [id number] Transcribed By: Self Edit Transcribed Date: 10/26/2024 09:07 ET PATHOLOGIST REVIEW IMMUNOFIX ATION, URINE RANDOM Reviewed date:12/01/2024 04:53:37 PM Interpretation: Performing Lab: Notes/Report: Pathologist Interpretation TESTOSTERONE, TOTAL Reviewed date:06/08/2024 01:25:35 PM Interpretation: [...] K/mcL Immature Granulocytes Absolute 0.01 0.00-0.03 K/mcL PROSTATE SPECIFIC ANTIGEN DI AGNOSTIC Reviewed date:06/08/2024 01:28:11 PM Interpretation: Performing Lab: Notes/Report: The Siemens Advia All Together Nowaur Chemiluminescent Immunoassay is used. Results obtained with different assay methods or kits cannot be used interchangeably. Results cannot be interpreted as absolute evidence of the presence or absence of malignant disease. PSA <0.06 0.00-4.00 ng/mL IMMUNOGLOBULINS IGG, IGA, IG M Reviewed date:11/30/2024 05:47:17 PM Interpretation: Performing Lab: Notes/Report: Total IgG 719 200-5269 mg/dL IgA 265 61-348 mg/dL IgM 41 23-259 mg/dL COMPREHENSIVE METABOLIC PANE L Reviewed date:11/30/2024 07:49:10 AM Interpretation: Performing Lab: Notes/Report: Sodium 132 133-145 mmol/L Potassium 4.8 3.5-5.5 mmol/L Chloride 100 96-110 mmol/L CO2 27 21-32 mmol/L Anion Gap 5 3-11 Glucose 91 70-100 mg/dL BUN 14 5-25 mg/dL Creatinine 0.84 0.70-1.30 mg/dL eGFR 92 >=60 mL/min/1.73m2 Calculation based on the Chronic Kidney Disease Epidemiology Collaboration (CKD-EPI) equation refit without adjustment for race. BUN/Creatinine Ratio 16.7 Calcium 8.7 8.5-10.5 mg/dL AST (SGOT) 36 10-42 unit/L ALT (SGPT) 44 10-60 unit/L Alkaline Phosphatase 70 42-121 unit/L Total Protein 6.5 6.0-8.0 g/dL Albumin 3.8 3.2-5.0 g/dL Total Bilirubin 0.7 0.0-1.4 mg/dL CBC WITH AUTO DIFFERENTIAL Reviewed date:11/29/2024 02:49:26 PM Interpretation: Performing Lab: Notes/Report: WBC 5.2 4.8-10.8 K/mcL RBC 4.00 4.50-5.50 M/mcL Hemoglobin 14.0 13.5-17.5 g/dL Hematocrit 40.3 42.0-54.0 % MCV 101.5 79.0-98.0 FL MCH 35.3 27.0-32.0 pcg MCHC 34.7 32.0-37.0 g/dL RDW 13.1 11.0-15.0 % Platelets 136 130-400 K/mcL MPV 10.3 7.0-11.0 FL NRBC 0.0 <1.0 % NRBC Absolute 0.00 <0.10 K/mcL Neutrophils Relative 76.1 Lymphocytes Relative 11.3 Monocytes Relative 10.3 Eosinophils Relative 1.3 Basophils Relative 0.6 Immature Granulocytes Relative 0.4 Neutrophils Absolute 3.99 1.50-7.00 K/mcL Lymphocytes Absolute 0.59 1.00-5.00 K/mcL Monocytes Absolute 0.54 0.20-1.00 K/mcL Eosinophils Absolute 0.07 0.00-0.50 K/mcL Basophils Absolute 0.03 0.00-0.20 K/mcL Immature Granulocytes Absolute 0.02 0.00-0.03 K/mcL MAGNESIUM Reviewed date:08/17/2024 07:47:28 AM Interpretation: Performing Lab: Notes/Report: Magnesium 2.4 1.9-2.6 mg/dL PROSTATE SPECIFIC ANTIGEN SC REEN Reviewed date:08/17/2024 07:47:22 AM Interpretation: Performing Lab: [...] K/mcL Immature Granulocytes Absolute 0.01 0.00-0.03 K/mcL CBC WITH AUTO DIFFERENTIAL Reviewed date:05/30/2024 04:21:30 [...] Interpretation: Performing Lab: Notes/Report: Note See Note [facility], a member of [employer] Patient Name: XIN NAVAS Date of : 1950 Reason for Exam: Dyspnea on exertion (RINCON) Exam Date: 05/30/2024 [id number] EST Report Status: Final Ordering Provider: MAYCO [...] Electronically Signed By: Mitchell Gonzalez Signed Date: 025 09:17 ET Workstation ID: [id number] Transcribed By: Self Edit Transcribed Date: 06/01/2024 09:15 ET B-TYPE NATRIURETIC PEPTIDE Reviewed date:05/30/2024 04:21:23 PM Interpretation: Performing Lab: Notes/Report: BNP 402 <=100 pcg/mL Reason For Referral Reason low back pain and st rength Diagnosis 1 Low back pain, unspe cified (M54.50) Referral Organization [facility] Referring Provider First Name BALDERAS Referring Provider Last Name [facility] Referring Provider Speciality Internal edicine Referred Provider Specialty Physical The rapist General Notes Referral printed and hand given to patient. TiffanysumayamorganClaudia 07/11/2024 11:58:35 AM > Referral Priority Routine Reason blood in stool karin se evaluate and treat Diagnosis 1 Other fecal abnormal ities (R19.5) Referral Organization [facility] Referring Provider First Name BALDERAS Referring Provider Last Name [facility] Referring Provider Speciality Internal edicine Referred Provider Specialty Gastroentero logy General Notes Referral was faxed t [facility]. Please contact patient for scheduling .Artie Rashida 03/30/2025 12:26:53 PM > Referral Priority Routine Medications Medication SIG (Take, Route, Frequency, Duration) Notes Start Date End Date Status Latanoprost-Timolol Maleate 0.005-0.5 % 1 drop into affected eye Ophthalmic Once a day Active Valsartan 160 MG TAKE 1 TABLET ONCE DAILY; Duration: 90 Active Ipratropium Preble 0.03 % 2 sprays in each nostril Nasally Twice a day Active Albuterol Sulfate HFA 108 (90 Base) MCG/ACT 2 puff as needed Inhalation every 4 hrs; Duration: 90 days Active Lasix 20 MG 1 tablet Orally Once a day Active Farxiga 10 MG 1 tablet Orally Once a day CARDIO Active Zepbound 2.5 MG/0.5ML 0.5 mL Subcutaneous Weekly; Duration: 30 days Active Anoro Ellipta 62.5-25 MCG/INH 1 puff Inhalation Once a day; Duration: 90 days Active Omeprazole 20 MG TAKE 1 CAPSULE ONCE DAILY 30 MINUTES BEFORE MORNING MEAL; Duration: 90 Active Fluconazole 10 MG/ML as directed Orally Not-Takin g Tadalafil 5 MG TAKE 1 TABLET ONCE DAILY FOR BLADDER CANCER; Duration: 90 Active Ezetimibe 10 MG TAKE 1 TABLET ONCE DAILY; Duration: 90 Active Eliquis 5 MG 1 tablet Orally twice a day; Duration: 90 days Active Penciclovir 1 % APPLY 1 APPLICATION EXTERNALLY EVERY 2 HOURS FOR 4 DAYS; Duration: 30 Not-Taking Tamsulosin HCl 0.4 MG TAKE 1 CAPSULE ONCE DAILY; Duration: 90 Active Carvedilol 3.125 MG 1 tablet with food Orally Twice a day; Duration: 90 days He is taking Carvedilol 3.125 MG only. Please fill, thanks! 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 confirmed Problem Morbid obesity (disorder) (754569866) Morbid (severe) obesity due to excess calories (E66.01) Active confirmed Problem Obesity due to excess calories (674797858) Other obesity due to excess calories (E66.09) Active confirmed Problem Mixed hyperlipidemia (789908966) Mixed hyperlipidemia (E78.2) Active confirmed Problem Embolism from thrombosis of vein of lower extremity (159831289) 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) Active confirmed Problem Peripheral venous insufficiency (91230183) Venous insufficiency (chronic) (peripheral) (I87.2) Active confirmed Problem Degeneration of thoracolumbar intervertebral disc (29852763) Other intervertebral disc degeneration, 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) Active confirmed Problem Paresthesia (finding) (98603119) Paresthesia of skin (R20.2) Active confirmed Problem Functional urinary incontinence (946707397) Functional urinary incontinence (R39.81) Active confirmed Problem History of malignant neoplasm of prostate (538558110) Personal history of malignant neoplasm of prostate (Z85.46) Active confirmed Problem Cardiac pacemaker in situ (971915451) Presence of cardiac pacemaker (Z95.0) Active confirmed Problem Essential hypertension (84935615) Essential (primary) hypertension (I10) Active confirmed Problem Congestive heart failure (83664280) Congestive heart failure (I50.9) Active confirmed Problem Bilateral carpal tunnel syndrome (2839215850113361 1) Bilateral carpal tunnel syndrome (G56.03) Active confirmed Vital Signs Heart Rate 69 /min 11/23/2024 Temperature 97.7 degrees Fahrenheit 11/23/2024 Oximetry 98 % 11/23/2024 Blood pressure diastolic 70 mm Hg 11/23/2024 Height 5'8'' in 11/23/2024 Blood pressure systolic 110 mm Hg 11/23/2024 Weight 221.5 lbs 11/23/2024 BMI 33.68 kg/m2 11/23/2024 Encounters Encounter Location Date Provider Diagnosis [address] [address] 07/11/2024 BALDERAS GUL Essential (primary) hypertension I10 ; Other intervertebral disc degeneration, thoracolumbar region M51.35 ; Chronic embolism and thrombosis of unspecified deep veins of unspecified lower extremity I82.509 ; Personal history of malignant neoplasm of prostate Z85.46 ; Congestive heart failure I50.9 ; Other obesity due to excess calories E66.09 and Dietary counseling and surveillance Z71.3 [facility] [address] [place] [address] 07/22/2024 BALDERAS GUL Morbid (severe) obes ity due to excess calories E66.01 and Dietary counseling and surveillance Z71.3 [facility] [address] [place] [address] 08/15/2024 BALDERAS GUL Other obesity due to excess calories E66.09 and Dietary counseling and surveillance Z71.3 [facility] [address] [place] [address] 10/11/2024 BALDERAS GUL Other obesity due to excess calories E66.09 and Dietary counseling and surveillance Z71.3 [facility] [address] [place] [address] 11/23/2024 BALDERAS GUL Other obesity due to excess calories E66.09 and Morbid (severe) obesity due to excess calories E66.01 [facility] [address] [place] [address] 08/22/2024 BALDERAS Burke [address] [place] [address] 09/08/2024 BALDERAS GUL Morbid (severe) obes ity due to excess calories E66.[address] [place] [address] 12/09/2024 BALDERAS [facility] [address] [place] [address] 03/28/[address] [place] [address] 03/29/2025 BALDERAS [facility] [address] [place] [address] 06/13/2024 BALDERAS GUL Assessments Encounter Date Diagnosis (ICD Code) Assessment [...] counting. Patient was also advised to use yszs-lrx-gydsoka vitamin D3 supplements and multivitamins. Pharmacotherapy. different [...] counting. Patient was also advised to use eoaz-phy-lkeewnb vitamin D3 supplements and multivitamins. Pharmacotherapy. different [...] Meal replacements were recommended. Advised to use rcer-yqr-jocbzgy multivitamins and vitamin D. Advised to use [...] Meal replacements were recommended. Advised to use rkpb-avv-hjfojmi multivitamins and vitamin D. Advised to use [...] than 50% of time was spent counseling 09/08/2024 Morbid (severe) obesity due to excess calories (ICD-10 - E66.01) 10/11/2024 Other obesity due to excess calories (ICD-10 - E66.09) Xin is 74 years old gentleman with hypertension, hyperlipidemia, chronic DVT lower extremity, status post prostate cancer, status post pacemaker, IgG deficiency, congestive heart failure is here today for medical weight management. He has lost total 16 pounds on his home scale. He will start Zep bound 2.5 mg to hopefully in the next few days because of availability issues. Dietary recommendations. Food recall was done today and patient advised to be on low calorie, low carbohydrate diet. Restrict calories to less than 1500 kcal in 24 hours. Low glycemic index foods and encouraged. Meal replacements were recommended. Advised to use thbe-edv-vhojats multivitamins and vitamin D. Advised to use calorie counter and adhere to portion control. Monthly goal is to lose 4-6 pounds Pharmacotherapy. started on Zepound 2.5 mg every weekly Side effects explained to the patient. Goal is to lose 3-5% of body weight in 3 months. Exercise. Patient encouraged to increase frequency, intensity [...] interviewing done. Arrange. Follow-up appointment arranged. Counseling. 15 minutes spent Face to face with the patient more than 50% of time was spent counseling 10/11/2024 Dietary counseling and surveillance (ICD-10 - Z71.3) Xin is 74 years old gentleman with hypertension, hyperlipidemia, chronic DVT lower extremity, status post prostate cancer, status post pacemaker, IgG deficiency, congestive heart failure is here today for medical weight management. He has lost total 16 pounds on his home scale. He will start Zep bound 2.5 mg to hopefully in the next few days because of availability issues. Dietary recommendations. Food recall was done today and patient advised to be on low calorie, low carbohydrate diet. Restrict calories to less than 1500 kcal in 24 hours. Low glycemic index foods and encouraged. Meal replacements were recommended. Advised to use rhls-xol-yvupbcf multivitamins and vitamin D. Advised to use calorie counter and adhere to portion control. Monthly goal is to lose 4-6 pounds Pharmacotherapy. started on Zepound 2.5 mg every weekly Side effects explained to the patient. Goal is to lose 3-5% of body weight in 3 months. Exercise. Patient encouraged to increase frequency, intensity [...] interviewing done. Arrange. Follow-up appointment arranged. Counseling. 15 minutes spent Face to face with the [...] Dr. Jaiden Colin and is going to [facility], venous insufficiency, DVT lower extremity, obesity is [...] nasal spray. He will follow up with high wire artist next week. Chronic DVT. Currently on Eliquis [...] Dr. Jaiden Colin and is going to [facility], venous insufficiency, DVT lower extremity, obesity is [...] nasal spray. He will follow up with high wire artist next week. Chronic DVT. Currently on Eliquis 5 mg 1 tablet twice a day. Obesity. Complications of obesity discussed. Briefly pharmacotherapy, diet restrictions discussed with the patient. He will make a follow-up appointment to have exclusive weight management consult and will go from there. blood work reviewed 11/23/2024 Other obesity due to excess calories (ICD-10 - E66.09) Xin is 74 years old pleasant gentleman with hypertension, hyperlipidemia, status post pacemaker, varicose veins, status post prostate cancer, degenerative disc disease/multiple joint osteoarthritis is here today for medical weight management. He has lost 6 pounds since last visit on current regimen.plan is as follows. Dietary recommendations. Food recall was done today and patient advised to be on low calorie, low carbohydrate diet. Restrict calories to less than 1500 kcal in 24 hours. Low glycemic index foods and encouraged. Meal replacements were recommended. Advised to use unqa-tsd-tnocoka multivitamins and vitamin D. Advised to use calorie counter and adhere to portion control. Monthly goal is to lose 4-6 pounds Pharmacotherapy. Continue on current regimen. Side effects explained to the patient. Goal is to lose 3-5% of body weight in 3 months. Exercise. Patient encouraged to increase frequency, intensity [...] 50% of time was spent counseling 07/11/2024 Chronic embolism and thrombosis of unspecified deep veins of unspecified lower extremity (ICD-10 - I82.509) Xin is 73 years old pleasant gentleman with CHF with preserved EF, hypertension, hyperlipidemia, status post pacemaker and he sees Dr. Garg, metastatic prostate cancer and he follows with Dr. Neno Bravo and Dr. Jaiden Colin and is going to [facility], venous insufficiency, DVT lower extremity, obesity is [...] nasal spray. He will follow up with high wire artist next week. Chronic DVT. Currently on Eliquis 5 mg 1 tablet twice a day. Obesity. Complications of obesity discussed. Briefly pharmacotherapy, diet restrictions discussed with the patient. He will make a follow-up appointment to have exclusive weight management consult and will go from there. blood work reviewed 11/23/2024 Morbid (severe) obesity due to excess calories (ICD-10 - E66.01) Xin is 74 years old pleasant gentleman with hypertension, hyperlipidemia, status post pacemaker, varicose veins, status post prostate cancer, degenerative disc disease/multiple joint osteoarthritis is here today for medical weight management. He has lost 6 pounds since last visit on current regimen.plan is as follows. Dietary recommendations. Food recall was done today and patient advised to be on low calorie, low carbohydrate diet. Restrict calories to less than 1500 kcal in 24 hours. Low glycemic index foods and encouraged. Meal replacements were recommended. Advised to use hjhz-ooq-djjjmkt multivitamins and vitamin D. Advised to use calorie counter and adhere to portion control. Monthly goal is to lose 4-6 pounds Pharmacotherapy. Continue on current regimen. Side effects explained to the patient. Goal is to lose 3-5% of body weight in 3 months. Exercise. Patient encouraged to increase frequency, intensity [...] 50% of time was spent counseling 07/11/2024 Personal history of malignant neoplasm of prostate (ICD-10 - Z85.46) Xin is 73 years old pleasant gentleman with CHF with preserved EF, hypertension, hyperlipidemia, status post pacemaker and he sees Dr. Garg, metastatic prostate cancer and he follows with Dr. Neno Bravo and Dr. Jaiden Colin and is going to [facility], venous insufficiency, DVT lower extremity, obesity is [...] nasal spray. He will follow up with high wire artist next week. Chronic DVT. Currently on Eliquis 5 mg 1 tablet twice a day. Obesity. Complications of obesity discussed. Briefly pharmacotherapy, diet restrictions discussed with the patient. He will make a follow-up appointment to have exclusive weight management consult and will go from there. blood work reviewed 07/11/2024 Congestive heart failure (ICD-10 - I50.9) Xin is 73 years old pleasant gentleman with CHF with preserved EF, hypertension, hyperlipidemia, status post pacemaker and he sees Dr. Garg, metastatic prostate cancer and he follows with Dr. Neno Bravo and Dr. Jaiden Colin and is going to [facility], venous insufficiency, DVT lower extremity, obesity is [...] nasal spray. He will follow up with high wire artist next week. Chronic DVT. Currently on Eliquis [...] Dr. Jaiden Colin and is going to [facility], venous insufficiency, DVT lower extremity, obesity is [...] nasal spray. He will follow up with high wire artist next week. Chronic DVT. Currently on Eliquis 5 mg 1 tablet twice a day. Obesity. Complications of obesity discussed. Briefly pharmacotherapy, diet restrictions discussed with the patient. He will make a follow-up appointment to have exclusive weight management consult and will go from there. blood work reviewed 07/11/2024 Dietary counseling and surveillance (ICD-10 - Z71.3) Xin is 73 years old pleasant gentleman with CHF with preserved EF, hypertension, hyperlipidemia, status post pacemaker and he sees Dr. Garg, metastatic prostate cancer and he follows with Dr. Neno Bravo and Dr. Jaiden Colin and is going to [facility], venous insufficiency, DVT lower extremity, obesity is [...] nasal spray. He will follow up with high wire artist next week. Chronic DVT. Currently on Eliquis [...] Provider Name:ANDREY SCHULTZ , 05/02/2025 11:00:00 AM, [address] [place] [address], [phone], Insurance Providers Payer Name Payer Address Payer Phone Subscriber Number Group Number Insured Name Patient Relationship to Insured Coverage Start Date Coverage End Date Medicare [address] [place] [phone] [id number] Xin Fair Self - patient is the insured 6 [employer] ([employer]) [address] [place] [address] [phone] [id number] Xin Fair Self - patient is the insured Medical [...]
--- OUTSIDE RECORDS SUMMARY | 2025-04-10 08:24 | XMS_ITS | Encounter Summary ---
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, CMS/HCC V28) Mariia Pérez NP [address] [facility] [address] Rod[address]z [address] [place] [phone] Referral ID Status Reason Start Date Expiration Date V isits Requested Visits Authorized [id number] Pending Review 1 1 Encounter Details Date Type Department Care Team (Late st Contact Info) Description 04/06/2025 Results Follow-Up [facility] - [facility] [address] [phone] Mariia Pérez NP [address] [place] [address] Dr Rodrigez [address] [place] [phone] Social History Tobacco Use Types Packs/Day Years [...] as of this encounter Functional Status * Are you deaf or do you have serious difficulty hearing? Answer Date of Assessment Author No 03/28/2025 11:57 AM Guillermo Ca RN * Are you blind or do you have serious difficulty seeing, even when wearing glasses? Answer Date of Assessment Author No 03/28/2025 11:57 AM Guillermo Ca RN * Do you have serious difficulty walking or climbing stairs? Answer Date of Assessment Author No 03/28/2025 11:57 AM Guillermo Ca RN * Do you have serious difficulty dressing or bathing? Answer Date of Assessment Author No 03/28/2025 11:57 AM Guillermo Ca RN * Because of a physical, mental, or emotional condition, do you have serious difficulty doing errandsalone such as visiting the doctor? Answer Date of Assessment Author No 03/28/2025 11:57 AM Guillermo Ca RN documented as of this encounter Mental Status * Because of a physical, mental, or emotional condition, do you have serious difficulty concentrating, remembering, or making decisions? (5 years old or older) Answer Entry Date Author No 03/28/2025 11:57 AM Guillermo Ca RN documented in this encounter Ordered Prescriptions Prescription Sig Dispense Quantity Refills Last Filled Start Date End Date acoramidis 356 mg tabletIndications:W ild-type transthyretin-relat ed (ATTR) amyloidosis (CMS/HCC V24, CMS/HCC V28) Take 712 mg by mouth 2 (two) times a day. 360 tablet 3 04/06/2025 04/06/2026 documented in this encounter Plan of Treatment Upcoming Encounters Date Type Department Care Team (Late st Contact Info) Description 04/12/2025 10:30 AM EST Hospital Encounter [facility] Endoscopy [address] [place] [phone] New Nesbitt MD 299 [facility] [address] [place] [address] 04/19/2025 8:00 AM EST Clinical Support [facility] Cardiology [facility] [place] - [facility] [address] 300 [facility] 154 [place] [phone] 04/19/2025 8:40 AM EST Office Visit [facility] 154 300 [facility] 154 [place] [phone] Mariia Pérez NP [address] [place] [address] [place] [address] 04/26/2025 9:15 AM EST Office Visit [facility] Hematology Oncology [address] [place] [phone] Destin Mendosa MD [address] [place] [address] 07/26/2025 9:45 AM EDT Office Visit Pulmonology [facility] 175 [facility] 200 [place] [phone] Brian Rivera MD 230 [place] [address] 11/09/2025 9:30 AM EDT Ancillary Procedure [facility] 154 300 [facility] 154 [place] [phone] documented as of this encounter Goals Goal [...] Care Plan Autogenerated Problem No Chaparro Daniels documented as of this encounter Visit Diagnoses Diagnosis 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
--- OUTSIDE RECORDS SUMMARY | 2025-04-10 08:24 | XMS_ITS | Encounter Summary ---
Author Organization [employer] [place] [address] Care Team Providers Care Sales Support Specialist Name Role Phone Eveline Boyd MD Primary Care Provider [phone] Reason for Visit * Reason Onset Date Comments Patient Assistance 04/07/2025 Attruby 356mg Encounter Details Date Type Department Care Team (Late st Contact Info) Description 04/07/2025 Telephone [facility] - [facility] [address] [facility] [address] [place] [address] Mariia Pérez NP [address] [place] [address] [place] [address] Social History Tobacco Use Types Packs/Day Years [...] EST Travel History Travel Start Travel End [place] 02/25/2025 03/28/2025 documented as of this encounter Functional Status * Are you deaf or do you have serious difficulty hearing? Answer Date of Assessment Author No 03/28/2025 11:57 AM EST Guillermo Nelson RN * Are you blind or do [...] Guillermo Ca RN documented in this encounter Progress Notes * India Mcdermott - 04/07/2025 9:07 AM EST Free trial program form and provider patient assistance portion along with copies of insurance cards were faxed to nadia bragg ([phone]). I called the patient and made him aware that these applications were being faxed today and that they should be reaching out to him regarding the free trial within the next 24 hrs to confirm delivery address and to be awaiting this call as they wont deliver the medication without speaking to him first. I did mention that his portion could be submittedwithout his signature but pt requested I mail it to him so he could sign and submit his portion. documented in this encounter Plan of Treatment Upcoming Encounters Date Type Department Care Team (Late st Contact Info) Description 04/12/2025 10:30 AM EST Hospital Encounter [facility] Endoscopy [address] [place] [phone] New Nesbitt MD 299 [facility] [address] [place] [address] 04/19/2025 8:00 AM EST Clinical Support [facility] 154 300 [facility] 154 [place] [phone] 04/19/2025 8:40 AM EST Office Visit [facility] 154 300 [facility] 154 [place] [phone] Mariia Pérez NP [address] [place] [address] [place] [address] 04/26/2025 9:15 AM EST Office Visit [facility] Hematology Oncology [address] [place] [phone] Destin Mendosa MD [address] [place] [phone] 07/26/2025 9:45 AM EDT Office Visit Pulmonology [facility] 175 [facility] [address] [place] [phone] Brian Rivera MD [address] [place] [phone] 11/09/2025 9:30 AM EDT Ancillary Procedure [facility] 154 300 [facility] 154 [place] [phone] documented as of this encounter Goals Goal [...] Diagnoses Not on filedocumented in this encounter Additional Health Concerns Active Problems Noted Date Diagnosed Date Autogenerated Problem 04/05/2025 documented as of this encounter Care Teams Sales Support Specialist Relationship Specialty Start Date End Date Eveline Boyd MD [address] [place] [address] PCP - General 03/20/22 documented as of this encounter
--- OUTSIDE RECORDS SUMMARY | 2025-04-10 08:24 | XMS_ITS | Encounter Summary ---
Author Organization [facility] [place] [address] Care Team Providers Care Lead Project Manager Name Role Phone Eveline Boyd MD Primary Care Provider [phone] Encounter Details Date Type Department Care Team (Late st Contact Info) Description 04/05/2025 Telephone Gastroenterology - [place] [address] [facility] [address] [place] [phone] Alex Rebollar, DO 299 [facility] [address] [place] [address] Social History Tobacco Use Types Packs/Day Years [...] EST Travel History Travel Start Travel End Counselor 02/25/2025 03/28/2025 documented as of this encounter [...] documented in this encounter Progress Notes * Gladis Jacobsen - 04/05/2025 9:09 AM EST Pt is established with wilian for prev procedures. Pt is scheduled 04/[address] cedeno for both procedures * Gladis Jacobsen - 04/05/2025 8:25 AM EST ----- Message from Geni Rebollar DO sent at 04/04/2025 4:34 PM EST ----- Regarding: urgent egd/colon Dr. Flannery from hematology contacted me about this patient. He is bleeding. He needs a double JAYSHREE. Dx: melena, history of colon polyps. JAYSHREE with me, hopefully within 2 weeks. Split prep. Thanks! documented in this encounter Plan of Treatment Upcoming Encounters Date Type Department Care Team (Late st Contact Info) Description 04/12/2025 10:30 AM EST Hospital Encounter [facility] Endoscopy [address] [place] [phone] New Cedeno MD [address] [address] 04/19/2025 8:00 AM EST Clinical Support [facility] Cardiology [facility] 154 300 [facility] 154 [place] [phone] 04/19/2025 8:40 AM EST Office Visit [facility] - [facility] 154 300 [facility] 154 [place] [address] Mariia Pérez NP [address] [place] [address] Dr [address] [place] [address] 04/26/2025 9:15 AM EST Office Visit [facility] Hematology Oncology [address] [place] [phone] Destin Mendosa MD 271 [place] [phone] 07/26/2025 9:45 AM EDT Office Visit Pulmonology [facility] 175 [facility] 200 [place] [phone] Brian Rivera MD 230 [place] [address] 11/09/2025 9:30 AM EDT Ancillary Procedure [facility] - [facility] 154 300 [facility] 154 [place] [phone] documented as of this encounter Goals Goal [...] documented as of this encounter Care Teams Lead Project Manager Relationship Specialty Start Date End Date Eveline Boyd MD [address] [place] [address] PCP - General 03/20/22 documented as of this encounter
--- OUTSIDE RECORDS SUMMARY | 2025-04-10 08:24 | XMS_ITS | Encounter Summary ---
Author Organization [employer] [place] [address] Care Team Providers Care Stacker Attendant Name Role Phone Eveline Boyd MD Primary Care Provider [phone] Reason for Visit * Reason Onset Date Comments Anticoagulation 04/06/2025 Colonoscopy & EG D 04/12/25 Dr. Nesbitt Encounter Details Date Type Department Care Team (Late st Contact Info) Description 04/06/2025 Telephone Gastroenterology - [address] [place] [address] Katiana Loja MA Social History Tobacco Use Types Packs/Day Years [...] EST Travel History Travel Start Travel End [place] 02/25/2025 03/28/2025 documented as of this encounter [...] documented in this encounter Progress Notes * Katiana Loja MA - 04/06/2025 11:48 AM EST Left detailed vm * Destin Mendosa MD - 04/06/2025 9:14 AM EST Yes, okay to hold Eliquis for 2 days prior to procedure thank you Okay to resume the day after procedure if no bleeding * Katiana Loja MA - 04/06/2025 9:10 AM EST Patient was just scheduled for Colonoscopy and EGD with Dr. Nesbitt on 04/12/25. Please advise ifok for us to have patient hold Eliquis x 2 days prior to the procedure. documented in this encounter Plan of Treatment Upcoming Encounters Date Type Department Care Team (Late st Contact Info) Description 04/12/2025 10:30 AM EST Hospital Encounter [facility] Endoscopy [address] [place] [address] New Nesbitt MD 299 [facility] 419 [place] [address] 04/19/2025 8:00 AM EST Clinical Support [facility] - [facility] 154 300 [facility] 154 [place] [phone] 04/19/2025 8:40 AM EST Office Visit [facility] - [facility] 154 300 [facility] 154 [place] [phone] Mariia Pérez NP [address] [place] [address] Dr [address] [place] [address] 04/26/2025 9:15 AM EST Office Visit [facility] Hematology Oncology [address] [place] [phone] Destin Mendosa MD 271 [place] [address] 07/26/2025 9:45 AM EDT Office Visit Pulmonology [facility] 175 [facility] 200 [place] [address] Brian Rivera MD [address] [place] [phone] 11/09/2025 9:30 AM EDT Ancillary Procedure [facility] - [facility] 154 300 [facility] 154 [place] [address] documented as of this encounter [...] documented as of this encounter Care Teams Stacker Attendant Relationship Specialty Start Date End Date Eveline Boyd MD [address] [place] [address] PCP - General 03/20/22 documented as of this encounter
--- OUTSIDE RECORDS SUMMARY | 2025-04-10 08:24 | XMS_ITS | Encounter Summary ---
Author Organization [place] [address] Care Team Providers Care Railroad Crane Operator Name Role Phone Eveline Boyd MD Primary Care Provider [phone] Reason for Visit * Reason Onset Date Comments Prior Auth 04/07/2025 acoramidis 356 m g tablet Encounter Details Date Type Department Care Team (Late st Contact Info) Description 04/07/2025 Telephone [facility] - [facility] [address] [facility] [address] [place] [address] Mariia Pérez, [facility] [place] [address] Social History Tobacco Use Types Packs/Day Years [...] EST Travel History Travel Start Travel End [place] 02/25/2025 03/28/2025 documented as of this encounter [...] Progress Notes * India Mcdermott - 04/07/2025 9:23 AM EST acoramidis 356 mg tablet -submitted through [employer] documented in this encounter Plan of Treatment Upcoming Encounters Date Type Department Care Team (Late st Contact Info) Description 04/12/2025 10:30 AM EST Hospital Encounter [facility] Endoscopy [address] [place] [phone] New Nesbitt MD 299 [facility] 419 [place] [address] 04/19/2025 8:00 AM EST Clinical Support [facility] Cardiology [facility] 154 300 [facility] 154 [place] [phone] 04/19/2025 8:40 AM EST Office Visit [facility] Cardiology [facility] 154 300 [facility] 154 [place] [address] Mariia Pérez NP [address] [place] [address] [place] [address] 04/26/2025 9:15 AM EST Office Visit [facility] Hematology Oncology [address] [place] [phone] Destin Mendosa MD 271 [place] [phone] 07/26/2025 9:45 AM EDT Office Visit Pulmonology - [place] 175 [facility] 200 [place] [phone] Brian Rivera MD 230 [place] [phone] 11/09/2025 9:30 AM EDT Ancillary Procedure [facility] - [facility] 154 300 [facility] 154 [place] [phone] documented as of this encounter Goals Goal [...] documented as of this encounter Care Teams Railroad Crane Operator Relationship Specialty Start Date End Date Eveline Boyd MD [address] [place] [phone] PCP - General 03/20/22 documented as of this encounter
== END 2025-04-10 08:17 | disposition home or self-care (01) ==
LOC: HO.HOSX 08:16
PROVIDERS: Visit Provider Orthopaedic Surgery
DX: Z47.1 Aftercare following joint replacement surgery (principal); Z96.653 Presence of artificial knee joint, bilateral; M25.561 Pain in right knee; M25.562 Pain in left knee
CPT/HCPCS: 73562; 99202

== ENCOUNTER 2025-04-10 08:57 | Outpatient (AMB) | payer MEDICARE, OTHER, SELFPAY ==
--- NOTE | 2025-04-10 09:09 | MHC.OFFVIS ---
Vital Signs 04/10/25 09:11 Height 5 ft 8 in Weight 212 lb BMI 32.2 Intake Visit Reasons: New Patient - Hx of Bilateral TKA 20+ years ago Intake Note: Phani is a 74 year old male who presents today as a New Patient to establish care for his Bilateral Knees. History of Bilateral TKA at an outside facility about 20+ years ago, previous providers are no longer in practice and he was unable to obtain records as the office has closed. Currently he is doing well but having some incresed pain in thelateral aspect of the left knee with prolonged walking. Gonsalo Manzo @ [facility] Left Knee Dr Gaviria @ [facility] - Right Knee Allergies hydrochlorothiazide Allergy (Unknown, Verified 10/25/24 08:53) Unknown NSAIDS Allergy (Unknown, Uncoded 10/25/24 08:53) Unknown HPI HPI New Patient - Hx of Bilateral TKA 20+ years ago: Details: Phani is a 74 year old male who presents today as a New Patient to establish care for his Bilateral Knees. History of Bilateral TKA at an outside facility about 20+ years ago, previous providers are no longer in practice and he was unable to obtain records as the office has closed. Currently he is doing well but having some pain in the lateral aspect of the left knee with prolonged walking. His pain has returned to minimal. He has no swelling. He is getting back into being more active after dealing with prostate cancer. He had a flare-up in his left knee this past summer while doing a lot of walking in [place]. He thinks his left knee was done 25 years ago and his right knee just under 20 years ago. Gonsalo Manzo @ [facility] - Left Knee Dr Gaviria @ [facility] - Right Knee [facility] Medical History Asthma Nocturia BPH (benign prostatic hyperplasia) HTN (hypertension) Hydrocele Erectile dysfunction due to arterial insufficiency Bladder outlet obstruction Incomplete emptying of bladder Weak urinary stream Surgical History History of total right knee replacement History of left knee replacement Family History Father No problems noted. Mother No problems noted. Physical Exam Exam Exam: Stable bilateral knees with well-healed incisions and no effusion. He has 0-125 degrees bilaterally. On his left knee there is some mild anterior tibial tenderness to palpation. He walks without limp. Vital Signs: BMI result Body Mass Index 32.2 Results Reviewed Results Reviewed: I personally reviewed relevant radiographs. Right total knee arthroplasty in expected post operative position with no hardware complications or evidence of loosening Left total knee arthroplasty in expected post operative position with possible evidence of early loosening around the tibia. Asymmetric joint space. Assessment & Plan Assessment & Plan (1) Status post bilateral knee replacements: Code(s): Z96.653 - Presence of artificial knee joint, bilateral Category: Surgical Plan: 74-year-old gentleman status post bilateral knee replacements. He has no pain. His left knee flared up and he was concerned and comes in today for evaluation. On x-ray there is some evidence of early tibial loosening on the left but he is minimally symptomatic. I discussed this with him. I would not intervene at this time. He can see me back in a year to and we can repeat x-rays. Should his pain worsen he return to see me sooner. Orders: Orders XR knee LT 3V Today M25.562 - Pain in left knee XR knee RT 3V Today M25.561 - Pain in right knee Coding Level of Care Code New Pt Level 3 (08390) Diagnoses Status post bilateral knee replacements Z96.653
[2025-04-10 09:11] VITALS: BMI 32.2
--- OUTSIDE RECORDS SUMMARY | 2025-04-10 09:38 | XMS_ITS ---
Author Name [facility] Organization Unknown Care Team Organization Name Specialty Phone Email Start Date End Da te [facility] 01/04/2025 [facility] 05/26/2022 024
== END 2025-04-10 09:41 | disposition home or self-care (01) ==
LOC: HO.HOS 08:58
PROVIDERS: PCP Hospitalist; Visit Provider Orthopaedic Surgery
DX: M25.562 Pain in left knee (principal); M25.561 Pain in right knee; Z47.89 Encounter for other orthopedic aftercare; Z96.653 Presence of artificial knee joint, bilateral
CPT/HCPCS: 99203

== ENCOUNTER → 2025-04-10 09:00 | Outpatient (BNV) | payer MEDICARE, OTHER, SELFPAY | PROVIDERS: Visit Provider Radiology Diagnostic Ultrasound | DX: M25.562 Pain in left knee (principal); Z96.652 Presence of left artificial knee joint; M25.561 Pain in right knee; Z96.651 Presence of right artificial knee joint | CPT/HCPCS: 73562 ==

== ENCOUNTER 2025-04-17 10:41 | Outpatient (REF) | payer MEDICARE, OTHER, SELFPAY ==
[2025-04-17 12:50] LABS: Prostate Specific Antigen < 0.10 ng/mL (<0.05-4.0)
--- OUTSIDE RECORDS SUMMARY | 2025-04-17 13:39 | XMS_ITS | Clinical Summary ---
Author Organization [facility] Address [address] [place] [id number] Care Team Providers Care Eligibility Consultant Name Role Phone Eveline Boyd MD Primary Care Provider [phone] Allergies Active Allergy Reactions Criticality Noted Date [...] day with meals. 0 Active Abiraterone Acetate ([facility] [id number] abiraterone 250MG tablet) 250 MG TABS Take [...] left subclavian vein 12/25/2022 Overview: Angioplasty 05/2020-Dr. Sarmiento[facility] Knee joint stiffness, bilateral 05/01/2017 Family [...] age to complete this topic Care Teams Eligibility Consultant Relationship Specialty Start Date End Date Eveline Boyd MD [address] [place] [address] PCP - General Internal Medicine 03/20/22
--- OUTSIDE RECORDS SUMMARY | 2025-04-17 13:39 | XMS_ITS | Clinical Summary ---
Author Organization [facility] Address [address] [facility] [address] [place] [id number] Phone Care Team Providers Care Cloth Designer Name Role Phone Tim Cullen MD Primary Care Provider Peña Barragan MD Unavailable [phone] Carolyn Dunlap MD, PhD Unavailable [phone] Allergies No known active allergies Medications amLODIPine [...] this topic Medical Devices Implanted Type Area Final Inspector Shuttle Device Identifier Shelf Expiration Date Model / Serial / Lot Pacemaker-2019 Implanted:08/04 (Quantity not on file) Pacemaker [employer] ENDORA 8 DR-T / [id number] / Insurance MEDICARE PART A & B [facility] MEDICARE SUPPLEMENT MEDICARE PART A & [facility] SUPPLEMENT MEDICARE PART A & B Member Subscriber Plan / Payer ( fective 2016-Present) Name:Romero Navasn Member ID:[id number] Relation to Subscriber:Self Name:Phani Nvaas Subscriber ID:[id number] Payer ID:[id number] Group ID:Not on file Type:Medicare Address: [employer] [id number] [facility] Fetch [facility] EXTENSION MEDICARE SUPPLEMENT MEDICARE PART A & B [facility] EXTENSION MEDICARE SUPPLEMENT MEDICARE PART A & B [facility] EXTENSION MEDICARE SUPPLEMENT MEDICARE PART A & B [employer] MEDICARE SUPPLEMENT MEDICARE PART A & B [employer] MEDICARE SUPPLEMENT MEDICARE PART A & B MEDICARE SUPPLEMENT MEDICARE PART A & B Member Subscriber Plan / Payer ( fective 2016-Present) Name:Romero Navasn Member ID:[id number] Relation to Subscriber:Self Name:Romero Navasn Subscriber ID:[id number] Payer ID:[id number] Group ID:Not on file Type:Medicare Address: [employer] [address] [place] [id number] [facility] [facility] SUPPLEMENT Care Teams Cloth Designer Relationship Specialty Start Date End Date Tim Cullen MD [address] [place] [id number] PCP - General Internal Medicine 12/10/18 Peña Barragan MD [address] [place] [id number] [email or web address] 06/25/23 Carolyn Dunlap MD, PhD [address] [place] [id number] [email or web address] Oncology 07/09/23 Additional Source Comments The information contained in this document represents components of the legal health record. It is not the complete legal health record.[facility]
== END 2025-04-17 10:42 | disposition home or self-care (01) ==
LOC: HO.LAB 10:41
PROVIDERS: PCP Hospitalist; Visit Provider Urology
DX: Z12.5 Encounter for screening for malignant neoplasm of prostate (principal); N52.01 Erectile dysfunction due to arterial insufficiency
CPT/HCPCS: 36415; 84153; 84403

== ENCOUNTER 2025-04-25 08:59 | Outpatient (AMB) | payer OTHER, SELFPAY ==
--- NOTE | 2025-04-25 08:58 | A.OFFVIS_ITS ---
Intake Visit Reasons: 6m follow up/ PSA/ Testo/ SET ( NO UA ) Intake Note: Patient is present for 6M/LABS Urology Medication:TADALAFIL,ABIRATERONE Antibiotic Allergy:NONE Blood Thinner:APIXABAN Labs done: 04/04/25 Total Testosterone 28 L , PSA <0.10 Personal Protection Specialist Required: No Accompanied by: Self / Same As Patient Allergies hydrochlorothiazide Allergy (Unknown, Verified 04/25/25 08:59) Unknown NSAIDS Allergy (Unknown, Uncoded 10/25/24 08:53) Unknown HPI Comments Details: Phani MANRIQUE is a very pleasant male. He is a patient of Dr Boyd. He is seen for the following urologic conditions. - prostate cancer high-grade - lower urinary tract symptoms - erectile dysfunction Recent bloody stool Normal colonoscopy Small stroke stone on Eliquis Discussed risk with urinary urgency and frequency from hematuria Testosterone slowly recovering Continued biochemically controlled prostate cancer [facility] has recommended no more GnRH injections Came off abiraterone and prednisone with Dr. Barragan - 04/10 Oncologist - Dr Barragan 04/11 <0.1, T42 10/09 <0.1, T <1 05/10 PSA <0.1, T<1 02/08 <0.1, T<1 11/08 0.16 T<1 GnRH - PMSA f/u with oncology 08/08 PSA 0.2 T <1 - combination therapy abiraterone - found small lesion spine on PMSA scan - spot radiation performed in [place] 04/09 PSA 0.5 T2 GnRH PSA 08/07 2.98 T <1, 11/07 0.6 Prostate cancer Grade Group 5 - EXBRT completed 05/08 - Last GnRH 11/08 11/07 Off abiraterone secondary to fluid related side effects Initial therapy GnRH with external beam radiation and maximum androgen blockade with GnRH and anti androgen - Radiation complete 05/08 Accelerating PSA - 11/06 8.1 F 22%, 02/[address] De Jesus for accelerating PSA 01/06 Histologic type: Adenocarcinoma, acinar type ? Edna score: 4+5=9 (right base lateral 70%, right base medial 100% and right mid lateral 90%) 4+4=8 (left base media 5% l, right mid medial 5% ) Tumor quantitation: ? Number cores positive: 09/26 ? % of tissue involved: Approximately 20% of all tissue examined 300/1200 Periprostatic fat inv.: Present Seminal vesicle inv.: Not identified Perineural inv.: Present LVI: Indeterminate GnRH injection 02/06, 08/07, 04/09 Imaging - 02/06 bone scan negative, CT scan no evidence of charo disease - large complex cyst on Left kidney Erectile dysfunction: Taking medication daily Tadalafil 5 mg, will add Flomax for urination urgency He presents today for for continued evaluation and management of erectile dysfunction. Symptoms have been present for/since Ongoing. Current treatment includes tadalafil 5 mg daily Prior therapies include oral medications 10 mg daily tadalafil with headache At this time he experiences erections are partial and adequate for vaginal penetration, that undergo rapid detumesence after penetration, RAZA 8-11 Moderate ED. Nocturnal erections do occur. Currently they are in a stable relationship. Overall he is satisfied with the current management. Therapeutic plan includes - continue surveillance in GnRH for 24 month total [facility] Medical History Asthma Nocturia BPH (benign prostatic hyperplasia) HTN (hypertension) Hydrocele Erectile dysfunction due to arterial insufficiency Bladder outlet obstruction Incomplete emptying of bladder Weak urinary stream Surgical History History of total right knee replacement History of left knee replacement Family History Father No problems noted. Mother No problems noted. Review of Systems Narrative Urinary Symptoms Review - The patient is at high risk for hematuria due to his history of radiation to the bladder and current use of Eliquis. - He was advised to monitor for urgency, frequency, and hematuria. - The patient did not report any current urinary symptoms. Const Denies chills and Denies fever(s) Card Reports no additional complaints and Denies syncope Resp Denies cough GI Denies abdominal pain and Denies heartburn Reports as per HPI and Denies change in libido Neuro Denies syncope Psych Denies change in libido Endo Denies change in libido Physical Exam Const General: cooperative, healthy appearing, comfortable and no acute distress Orientation/consciousness: patient oriented x3 HEENT Face and sinus: Yes normal facial exam Mouth: moist mucous membranes Neck Neck: Yes normal visual inspection, Yes full ROM and Yes trachea midline Chest Chest palpation & inspection: normal inspection of the chest Resp Effort & Inspection: normal respiratory effort, able to speak in complete sentences and no respiratory distress GI Inspection: Yes normal to inspection Back/Spine/Pelvis Cervical Spine: normal cervical lordosis Thoracic/Lumbar Spine: thoracic and lumbar spine normal to inspection Skin General skin exam: no rashes or lesions noted Neuro General: patient oriented x3, gait normal, tone normal and moves all extremities Extrem General: Yes normal to inspection and Yes capillary refill normal Assessment & Plan Assessment & Plan (1) Prostate cancer metastatic to bone: Code(s): C61 - Malignant neoplasm of prostate; C79.51 - Secondary malignant neoplasm of bone Category: Medical (2) BPH (benign prostatic hyperplasia): Code(s): N40.0 - Benign prostatic hyperplasia without lower urinary tract symptoms Category: Medical Plan Plan - The patient will continue to be monitored with PSA and testosterone levels every six months. - Testosterone replacement will be held at this time to allow for natural recovery. - He will proceed with the scheduled esophagogastroduodenoscopy (EGD) on May 26 to evaluate the etiology of his melena. - The patient was counseled on the risk of hematuria while taking Eliquis due to his history of pelvic radiation and was instructed to call if he develops blood in the urine, urinary urgency, or frequency. - Encouraged use of Zepbound for weight management with a low and slow titration approach. - Recommended to resume physical activity, including walking and weight lifting, as tolerated and once stable on anticoagulation. Discussion Notes I reviewed the patient's lab results, confirming a nondetectable PSA and a recovering testosterone level of 50. We discussed his recent medical events, including a stroke last week for which he was hospitalized and has resumed Eliquis, and recurrent melena. I noted his upcoming EGD on May 26 and explained that the melena is likely from a benign source such as an ulcer rather than cancer. I reassured the patient and his that allowing testosterone to recover naturally is safe and does not increase the risk of cancer recurrence based on current medical data. I informed him that he is in remission from his prostate cancer. I counseled him on the increased risk of hematuria due to the combination of prior pelvic radiation and his new anticoagulation regimen, pr oviding strict return precautions to call immediately if he observes blood in his urine or other bladder symptoms. We discussed lifestyle management, and I encouraged him to maintain his strength with exercise once he feels stable. I also endorsed resuming Zepbound for weight management. We will follow up in six months to recheck his labs. Patient Instructions - Your prostate cancer is in remission. - We will check your bloodwork, including PSA and testosterone, again in 6 months. - Continue taking Eliquis and aspirin as directed for your recent stroke. - Eliquis is a blood thinner and increases your risk of bleeding. - Because of your past radiation treatment and the new blood thinner, you are at a higher risk of blood in your urine. Call our office immediately if you see any blood in your urine or have new problems with urinary frequency or urgency. - Keep your appointment for the upper endoscopy on May 26 to check for the cause of your black stools. - You can resume taking Zepbound for weight loss, starting with a low dose and increasing it slowly. - When you feel stable, you can resume walking and lifting weights to maintain your strength. Orders: Orders Prostate Specific Antigen 6 Months C61 - Malignant neoplasm of prostate Testosterone, Total 6 Months C61 - Malignant neoplasm of prostate Patient Instructions: This note is constructed using voice recognition software. While every effort has been made to ensure accuracy regional refrigerated cdl truck driver errors may have been included. Imaging studies, laboratory and physical exam results were discussed and reviewed in detail. No major barriers to patient understanding were identified. An opportunity to ask questions regarding the treatment plan was provided. All questions were answered. The patient expressed understanding and agreement with the above treatment plan. The patient is aware they should contact our office by phone for worsening of their current condition or the appearance of new urologic symptoms. Compliance is encouraged with any medications and followup testing that is ordered. It is a privilege to participate in the urologic care of your patient. If you have any questions or concerns regarding treatment for the above conditions, or other urologic issues, please do not hesitate to contact me. The office telephone contact is [phone]. Sincerely, Dr Jaiden De Jesus MD, [facility] - Urology Compassionate Specialist Care for the Genitourinary System Coding Level of Care Code Est Pt Level 3 (30130) Complex visit Add On G2211 Diagnoses Prostate cancer metastatic to bone C61; C79.51 BPH (benign prostatic hyperplasia) N40.0
== END 2025-04-25 09:24 | disposition home or self-care (01) ==
LOC: HO.HUSH 08:59
PROVIDERS: PCP Hospitalist; Visit Provider Urology
DX: C61 Malignant neoplasm of prostate (principal); C79.51 Secondary malignant neoplasm of bone; N40.0 Benign prostatic hyperplasia without lower urinary tract symptoms
CPT/HCPCS: 99213